=== PATIENT | male | born 1955 | race Caucasian/White ===

== ENCOUNTER 2017-12-12 23:06 | Emergency (ER) | payer OTHER ==
[2017-12-12] MEDS: PHENobarbital INJ 65 MG/ML VIAL (J2560) IV (23:36)
[2017-12-12] MEDS: MULTIVITAMIN -ADULT INJECTION 10 ML, THIAMINE INJection 100 MG, FOLIC ACID 1 MG in NS 1... IV (23:45)
[2017-12-12 23:53] LABS: BEDSIDE GLUCOSE 141 MG/DL (80-115)
[2017-12-13] LABS: BASO % 0.3 % (0.0-1.0); EOS # 0.1 10^3/uL (0.0-0.50); EOS % 1.8 % (0.0-3.0); HEMATOCRIT 43.5 % (42.0-52.0); HEMOGLOBIN 14.5 g/dl (13.5-17.5); IMMATURE GRANULOCYTE % 0.4 % (0-3.0); LYMPH # 1.4 10^3/uL (1.5-4.5); LYMPH % 18.4 % (24.0-44.0); MEAN CORPUSCULAR HEMOGLOBIN 33.6 pg (27.0-33.0); MEAN CORPUSCULAR HGB CONC 33.3 g/dl (32.0-36.5); MEAN CORPUSCULAR VOLUME 100.7 fl (80.0-96.0); MONO # 0.4 10^3/uL (0.0-0.8); MONO % 5.2 % (0.0-5.0); NEUTROPHILS # 5.7 10^3/uL (1.8-7.7); NEUTROPHILS % 73.9 % (36.0-66.0); PLATELET COUNT, AUTOMATED 215 10^3/uL (150-450); RED BLOOD COUNT 4.32 10^6/uL (4.30-6.10); RED CELL DISTRIBUTION WIDTH 13.1 % (11.5-14.5); WHITE BLOOD COUNT 7.7 10^3/uL (4.0-10.0)
[2017-12-13 01:11] LABS: AMMONIA 17 uMOL/L (<32)
[2017-12-13 01:30] LABS: ALBUMIN 3.9 GM/DL (3.2-5.2); ALBUMIN/GLOBULIN RATIO 1.18 (1.00-1.93); ALKALINE PHOSPHATASE 69 U/L (45-117); ALT/SGPT 60 U/L (12-78); ANION GAP 13 MEQ/L (8-16); AST/SGOT 41 U/L (7-37); BILIRUBIN,DIRECT 0.1 MG/DL (0.0-0.2); BILIRUBIN,TOTAL 0.4 MG/DL (0.2-1.0); BLOOD UREA NITROGEN 13 MG/DL (7-18); CALCIUM LEVEL 8.6 MG/DL (8.8-10.2); CARBON DIOXIDE LEVEL 24 MEQ/L (21-32); CHLORIDE LEVEL 107 MEQ/L (98-107); CREATININE FOR GFR 0.82 MG/DL (0.70-1.30); ETHYL ALCOHOL (ETHANOL) 0.172 % (0.000-0.010); GLOMERULAR FILTRATION RATE > 60.0 (>49); GLUCOSE, FASTING 126 MG/DL (70-100); LITHIUM LEVEL < 0.20 MEQ/L (0.60-1.20); POTASSIUM SERUM 4.4 MEQ/L (3.5-5.1); SODIUM LEVEL 144 MEQ/L (136-145); TOTAL PROTEIN 7.2 GM/DL (6.4-8.2); VALPROIC ACID (DEPAKOTE) 13.8 UG/ML (50.0-100.0)
== END 2017-12-13 02:54 | disposition home or self-care (01) ==
LOC: M ED 23:06
DX: F10.239 Alcohol dependence with withdrawal, unspecified (principal); E11.9 Type 2 diabetes mellitus without complications; I10 Essential (primary) hypertension; I25.10 Atherosclerotic heart disease of native coronary artery without angina pectoris; F31.9 Bipolar disorder, unspecified; Z95.5 Presence of coronary angioplasty implant and graft; Z79.899 Other long term (current) drug therapy; Z79.82 Long term (current) use of aspirin; Z79.84 Long term (current) use of oral hypoglycemic drugs; Z87.891 Personal history of nicotine dependence
CPT/HCPCS: J2560

== ENCOUNTER 2020-05-10 18:19 | Inpatient (IN) | payer OTHER ==
[~2020-05-10] VITALS: Ht 170.2 cm; Wt 62.0 kg
[~2020-05-10 18:19] MED LIST: ASPI325T; ASPI81TA45 OR; ATOR40TA75 PO; BABY81CH; BUPR100T12 OR; BUPR1TAB53 PO; CLAR10CA3 PO; COLA100C2; COLA100C2 PO; COLA100C5 PO; CYAN1000VL IM; CYANPOW SC; DEPA1TAB3 PO; DEPA500T PO; DETEMIR INSULIN SC; ECOT81TA5 PO; FOLI1TAB; FOLI800C PO; FOLI800T; GEMF600T PO; JARD1TAB3 PO; LAMI1TAB7 PO; LASI20TA; LEVE1INJ5 SC; LEVI20TA; LISI40TA; LISI5TAB; LITH300T2; LOPR50TA; METF-415 PO; MULT1TAB7 PO; NICO21DI4; NOVO1INJ4; NOVO1INJ4 SC; PLAV75TA2; PLAV75TA2 OR; PRAV1TAB39 PO; PRAV80TA OR; SILD100T PO; THERGRAN PO; TYLENOL #3 OR; VITA250T4 PO; VITA500T PO; ZEST1TAB PO; ZEST20TA4 PO; [UNRECOGNIZED DRUG - OTHER] SC
--- NOTE | 2020-05-10 18:44 | REPVR ---
PROCEDURE INFORMATION: Exam: CT Head Without Contrast Exam date and time: 05/10/2020 6:34 PM Age: 64 years old Clinical indication: Numbness / parasthesia and speech disturbance; Slurred speech; Additional info: CVA - nursing interventions must not delay CT TECHNIQUE: Imaging protocol: Computed tomography of the head without contrast. Radiation optimization: All CT scans at this facility use at least one of these dose optimization techniques: automated exposure control; mA and/or kV adjustment per patient size (includes targeted exams where dose is matched to clinical indication); or iterative reconstruction. Other technique: STROKE PROTOCOL was implemented. COMPARISON: No relevant prior studies available. FINDINGS: Brain: There is no acute cortical infarction, intracranial hemorrhage or mass. Cerebral ventricles: The ventricles appear enlarged, but not out of proportion to the degree of parenchymal volume loss. Bones/joints: Unremarkable. No acute fracture. Paranasal sinuses: Visualized sinuses are unremarkable. No fluid levels. Mastoid air cells: Visualized mastoid air cells are well aerated. Vasculature: Atherosclerosis. Soft tissues: Unremarkable. IMPRESSION: No acute cerebral infarction or intracranial hemorrhage. ASSESSMENT: ASPECTS (Pamela Stroke Program Early CT Score) is 10. Electronically signed by: Radha Aguilar On 05/10/2020 18:44:08 PM
[2020-05-10 18:45] LABS: BASO % 0.6 % (0.0-1.0); EOS # 0.2 10^3/uL (0.0-0.5); EOS % 3.3 % (0.0-3.0); HEMATOCRIT 45.6 % (42.0-52.0); HEMOGLOBIN 14.7 g/dl (13.5-17.5); LYMPH # 1.3 10^3/uL (1.5-5.0); LYMPH % 19.9 % (24.0-44.0); MEAN CORPUSCULAR HEMOGLOBIN 31.5 pg (27.0-33.0); MEAN CORPUSCULAR HGB CONC 32.2 g/dl (32.0-36.5); MEAN CORPUSCULAR VOLUME 97.6 fl (80.0-96.0); MONO # 0.6 10^3/uL (0.0-0.8); MONO % 9.2 % (0.0-5.0); NEUTROPHILS # 4.2 10^3/uL (1.5-8.5); NEUTROPHILS % 66.7 % (36.0-66.0); PLATELET COUNT, AUTOMATED 252 10^3/uL (150-450); RED BLOOD COUNT 4.67 10^6/uL (4.30-6.10); WHITE BLOOD COUNT 6.3 10^3/uL (4.0-10.0)
[2020-05-10 19:17] LABS: INR 0.85; PARTIAL THROMBOPLASTIN TIME 26.7 SECONDS (24.2-38.5); PROTHROMBIN TIME 11.8 SECONDS (12.5-14.3)
[2020-05-10 19:29] LABS: BLOOD UREA NITROGEN 14 MG/DL (7-18); CALCIUM LEVEL 8.7 MG/DL (8.8-10.2); CARBON DIOXIDE LEVEL 26 MEQ/L (21-32); CHLORIDE LEVEL 98 MEQ/L (98-107); CPK CREATINE PHOSPHOKINASE 141 U/L (39-308); CREATININE FOR GFR 1.05 MG/DL (0.70-1.30); GLOMERULAR FILTRATION RATE > 60.0 (>49); GLUCOSE, FASTING 686 MG/DL (70-100); MB/CK RELATIVE INDEX 2.13 (< OR =4); POTASSIUM SERUM 4.6 MEQ/L (3.5-5.1); SODIUM LEVEL 132 MEQ/L (136-145); TROPONIN I < 0.02 NG/ML (< 0.10)
--- NOTE | 2020-05-10 19:37 | REPVR ---
PROCEDURE INFORMATION: Exam: XR Chest, 1 View Exam date and time: 05/10/2020 6:30 PM Age: 64 years old Clinical indication: Other: CVA TECHNIQUE: Imaging protocol: XR of the chest Views: 1 view. COMPARISON: No relevant prior studies available. FINDINGS: Tubes, catheters and devices: Cardiac leads are in place. Lungs: There appears to be subsegmental atelectasis at the left lung base. Pleural space: No pleural effusions. Heart/Mediastinum: No cardiomegaly. Atherosclerotic calcification. Bones/joints: Unremarkable. IMPRESSION: Lung volumes are relatively low and there appears to be subsegmental atelectasis at left lung base. Early pneumonia is also within the differential. Electronically signed by: Radha Aguilar On 05/10/2020 19:37:03 PM
[2020-05-10] MEDS ORDERED: HumaLOG INSULIN (NovoLOG) PER UNIT SC STA (19:43)
[2020-05-10] MEDS ORDERED: NS 1,000 ML IV ONE (19:45)
[2020-05-10 19:49] LABS: ALBUMIN 3.6 GM/DL (3.2-5.2); ALT/SGPT 40 U/L (12-78); BILIRUBIN,DIRECT < 0.1 MG/DL (0.0-0.2); BILIRUBIN,TOTAL 0.3 MG/DL (0.2-1.0); TOTAL PROTEIN 7.1 GM/DL (6.4-8.2)
[2020-05-10 19:51] LABS: HEMOGLOBIN A1c 10.3 %
[2020-05-10] MEDS ORDERED: ASPIRIN 325 MG TAB PO ONE (20:00)
[2020-05-10] MEDS ORDERED: INSULANT SC (20:13)
[2020-05-10] MEDS ORDERED: LISI-538 PO (20:13)
[2020-05-10] MEDS ORDERED: ATOR80TA59 PO (20:13)
[2020-05-10] MEDS ORDERED: SERT-138 PO (20:13)
[2020-05-10] MEDS ORDERED: ASCO500T PO (20:13)
[2020-05-10] MEDS ORDERED: METF10004 PO (20:13)
[2020-05-10] MEDS ORDERED: HYDR12CA PO (20:13)
[2020-05-10] MEDS ORDERED: LISI40TA PO (20:33)
[2020-05-10] MEDS ORDERED: CYAN100050 PO (20:35)
[2020-05-10] MEDS ORDERED: VITATAB73 PO (20:35)
[2020-05-10] MEDS ORDERED: ULTR5TAB PO (20:35)
--- NOTE | 2020-05-10 20:59 | HPEPDOC ---
[facility] Medical History & Physical Date of Admission May 10, 2020 Date of Service: May 10, 2020 Attending Physician: PRECIOUS SIMON MD History and Physical CHIEF COMPLAINT: Left-sided numbness HISTORY OF PRESENT ILLNESS: is a pleasant 64yo male with notable PMHx of previous CVA (2010), poorly controlled IDDMII, HTN, DLD, CAD s/p stents, and Bipolar depression, who presented to the [facility] ED on 05/10/2020 with the chief complaint of left-sided weakness. Three days ago, he began to experience left arm and hand numbness that continued on an intermittent basis and subsequently spread today (05/10) to involve the left lower extremity with accompanying difficulty speaking, left facial droop, and ambulatory instability. 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 He claims to have fallen onto a carpeted floor earlier today, making initial contact with his LUE and the left-side of his head, but his , who drove him to the ED and has been with him all day, denies that he fell. In the ED, a CT head without contrast showed no acute cerebral infarct or intracranial hemorrhage. He had significant hyperglycemia (sGlu 686) with an A1c of 10.3%, was hypertensive, and on exam exhibited some slowed garbled speech with left upper extremity pronator drift. The ED provider spoke with the on-call neurologist, who recommended switching his daily 81 mg aspirin 325 mg aspirin and ordering a follow-up MRI to rule out possible CVA. Of note, he is a former smoker, having quit 5 years ago after smoking 12 packs of cigarettes per day for 20 years. He was subsequently admitted under the care of the hospitalist service primarily for continued neurologic monitoring and workup for possible CVA along with i mproved glycemic control. Patient confirmed he is a full code. His Maribell is his HCP. His PCP is a Dr. Rubio at the [facility]. PAST MEDICAL HISTORY: CVA, 2010 Poorly controlled IDDMII; takes 18u long-acting qHS HTN CAD s/p stents DLD Bipolar depression with PTSD, currently on depakote PAST SURGICAL HISTORY: s/p cardiac stents Right inguinal hernia repair. Appendectomy. Right lower extremity fracture with subsequent plate hardware SOCIAL HISTORY: , lives and [id number] in [place], [place]. 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 Has 1 son and 1 daughter. Former smoker; quit smoking 5 years ago after smoking 12 packs per day of cigarettes for 20 years Former drinker, not having had any alcohol in "months." He has a previous heavy use for 5 years prior to stopping, averaging 1 pint of alcohol a day. Denies current or former illegal drug use. FAMILY HISTORY: Father: , type 2 diabetes and lung cancer Mother: , type 2 diabetes and lung cancer Two brothers: both - - one overdosed on drugs, the other had biliary tree cancer ALLERGIES: Please see below. REVIEW OF SYSTEMS: CONSTITUTIONAL: Denies weight loss, fevers, chills, or night sweats EYES: Denies visual changes, double vision, blurry vision, eye pain ENT: Denies runny nose, epistaxis, sinus pain, tinnitus, sore throat, dysphagia, or odynophagia CARDIOVASCULAR: Denies chest pain, chest pressure, or palpitations RESPIRATORY: Denies shortness of breath, cough, pleuritic chest pain GASTROINTESTINAL: Denies abdominal pain, nausea, vomiting, or blood in stool GENITOURINARY: Denies hematuria or dysuria NEUROLOGY: Reports left upper and lower extremity numbness with decreased left rim fire priming 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 PHYSICAL EXAMINATION: VITAL SIGNS: Temperature 98.3, pulse, 94, respiratory rate 18, blood pressure 151/82, pulse oximetry, 99 % on room air. GENERAL: Pleasant, elderly male lying in bed. Has slower, somewhat thicker speech. No acute distress. Alert and oriented 3. HEENT: Normocephalic, atraumatic. Noninjected, anicteric sclera. There appears to be some mild drooping of the left eyelid. No conjunctival pallor. No pharyngeal erythema or exudate. NECK: Supple. Trachea midline. No lymphadenopathy. RESPIRATORY: Decreased tidal volume with some rhonchorous breath sounds in bilateral bases posteriorly. Symmetric chest. For the remainder. CARDIOVASCULAR: Distant heart sounds and borderline tachycardic rate. Regular rhythm. Normal S1, S2. Difficult to accurately assess for murmurs or rubs due to distant heart sounds. ABDOMEN: Soft, nontender, nondistended. No guarding or rigidity. Positive bowel sounds present. EXTREMITIES: Bilateral lower extremities free of edema. No clubbing, cyanosis. 2+ radial pulses bilaterally NEUROLOGICAL: Some mild to moderate dysarthria and slowed speech but able to eventually get accurate words out. Poor short-term recall. Sensation light touch intact of upper and lower extremities bilaterally. There is some mild pronator drift. The left upper extremity. [id number] testing for ataxia is delayed, but appropriately executed. Cranial nerves III through XII are grossly intact. PSYCHIATRIC: Mood and affect appear appropriate. Skin: There is some slight erythema of the left forehead with no signs of surrounding active bleeding or skin breakdown. LABORATORY DATA: Please see below. IMAGING: CT head without contrast, 05/10/20 FINDINGS: Brain: There is no acute cortical infarction, intracranial hemorrhage or mass. Cerebral ventricles: The ventricles appear enlarged, but not out of proportion to the degree of parenchymal volume loss. Bones/joints: Unremarkable. No acute fracture. Paranasal sinuses: Visualized sinuses are unremarkable. No fluid levels. Mastoid air cells: Visualized mastoid air cells are well aerated. Vasculature: Atherosclerosis. Soft tissues: Unremarkable. IMPRESSION: No acute cerebral infarction or intracranial hemorrhage. Chest x-ray, 05/10/20 FINDINGS: Tubes, catheters and devices: Cardiac leads are in place. Lungs: There appears to be subsegmental atelectasis at the left lung base. Pleural space: No pleural effusions. Heart/Mediastinum: No cardiomegaly. Atherosclerotic calcification. Bones/joints: Unremarkable. IMPRESSION: Lung volumes are relatively low and there appears to be subsegmental atelectasis at left lung base. Early pneumonia is also within the differential. MICROBIOLOGY: Please see below. ASSESSMENT & PLAN: This is a 64yo male w/ notable h/o CVA (2010), poorly controlled IDDMII, HTN, CAD s/p stents, smoking, and bipolar depression/PTSD, who presented to the ED on 05/10/2020 w/ CC of LUE numbness for 3 days that spread to involve LLE, left facial droop, difficulty speaking, and gait instability on 05/10. In the ED, CT head without contrast was negative for cranial hemorrhage or acute cerebral infarction. He was found to have left pronator drift and slowed, garbled speech; and was hypertensive with significant hyperglycemia (sGlu 686). He was subsequently admitted for further neurologic monitoring and workup for possible TIA versus CVA, as well as blood sugar control. 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 and dropping objects, and gait instability with possible fall -At time of ED px: Left arm pronator drift with slowed, garbled speech -NIH Stroke Scale Assessment (at time of admission): 2 points = "minor stroke" -CT head without contrast was negative for acute cerebral infarction or intracranial hemorrhage -MAGDA Score (to assess stroke vs stroke mimic): 1 point = possible stroke -ADCD2 Score (to assess for risk of CVA after TIA): 5 points = moderate risk of CVA after TIA -Due to the possibility of stroke in the setting of patient's presenting symptoms + history of stroke/extensive smoking history/uncontrolled diabetes/hypertension/dyslipidemia + possible stroke per MAGDA Score, f/u MRI Brain ordered -Bilateral carotid duplex ultrasound ordered to assess for carotid pathology -ECHO ordered to assess for possible cardiac structural pathology and may contribute to throwing a clot; last ECHO on file is from February 2011 that showed no obvious source for cardiac emboli -ASA increased to 325 mg -home 80 mg atorvastatin continued -Based on possible stroke per MAGDA Score and moderate risk of CVA following TIA per ABCD2 Score, combination of aspirin and Plavix is indicated for the duration of 21 days, to be followed by Plavix monotherapy for 90 days. *As patient seems to have these neurological symptoms despite being on 81 mg ASA, the addition of Plavix seems warranted. -Neuro checks every 4 hours -CLD (pt will begin by demonstrating capability with use of straw); FSBS q6h w/ SSI q6h and hypoglycemic protocol; home LA insulin dose cut in half to 9u qHS; home metformin held -Speech therapy consult, along with PT/OT evaluation, placed but, due to holiday, this likely won't be completed until 05/14 -Fall risk precautions & assisted ambulation only #Uncontrolled IDDMII -At px: sGlu 686; Hgb A1c 10.3% -Takes 18u long-acting qHS along with metformin at home -s/p two, 10 mg IV short-acting insulin in ED -CLD (pt will begin by demonstrating capability with use of straw) -FSBS q6h w/ SSI q6h and hypoglycemic protocol; home LA insulin dose cut in half to 9u qHS; home metformin held -diabetic counseling and dietary consult placed #Chronic HTN -Px hypertensive with SBP in 190s; decreased at time of admission to SBPs 150s -home lisinopril and hctz contd #DLD -home atorvastatin 80 mg continued #History of Bipolar depression and PTSD -follows with a psychiatrist, Dr. Barbour, at the [facility] in [place] -Per report, his 100 mg sertraline was abruptly discontinued by his provider on 05/04 (6 days ago). This is a significant dose of this medication to stop suddenly, and thus 50 mg sertraline dose ordered for 7 days to assist with taper -He is on Depakote at home, and this was continued #CAD s/p cardiac stents -home 81 mg ASA held in favor of starting 325 mg ASA dose per neurology recommendation #DVT prophylaxis: sc lovenox Disposition: pending results further imaging results and improved sugars Vital Signs Vital Signs Date Time Temp Pulse Resp B/P (MAP) Pulse Ox O2 Delivery O2 Flow Rate FiO2 05/10/20 18:38 05/10/20 18:36 98.3 94 18 99 Room Air Laboratory Data Labs 24H Laboratory Tests 2 05/10/20 18:35: Immature Granulocyte % (Auto) 0.3, Neutrophils (%) (Auto) 66.7H, Lymphocytes (%) (Auto) 19.9L, Monocytes (%) (Auto) 9.2H, Eosinophils (%) (Auto) 3.3H, Basophils (%) (Auto) 0.6, Neutrophils # (Auto) 4.2, Lymphocytes # (Auto) 1.3L, Monocytes # (Auto) 0.6, Eosinophils # (Auto) 0.2, Basophils # (Auto) 0.0, Nucleated Red Blood Cells % (auto) 0.0, Prothrombin Time 11.8, Prothromb Time International Ratio 0.85, Activated Partial Thromboplast Time 26.7, Anion Gap 8, Glomerular Filtration Rate > 60.0, Estimated Mean Plasma Glucose 249H, Hemoglobin A1c 10.3, Calcium Level 8.7L, Total Bilirubin 0.3, Direct Bilirubin < 0.1, Aspartate Amino Transf (AST/SGOT) 18, Alanine Aminotransferase (ALT/SGPT) 40, Alkaline Phosphatase 195H, Total Creatine Kinase 141, Creatine Kinase MB 3.0, Creatine Kinase MB Relative Index 2.13, Troponin I < 0.02, Total Protein 7.1, Albumin 3.6, Albumin/Globulin Ratio 1.0 05/10/20 19:41: Bedside Glucose (Misc Panel) 571*H 05/10/20 20:01: CBC/BMP Laboratory Tests 05/10/20 18:35 Home Medications Scheduled Ascorbic Acid (Ascorbic Acid) 500 Mg Tablet, 500 MG PO DAILY Aspirin (Ecotrin) 81 Mg Tablet.dr, 81 MG PO DAILY Atorvastatin Calcium (Atorvastatin Calcium) 80 Mg Tablet, 80 MG PO QPM Biotin (Biotin) 5,000 Mcg Tab.rapdis, 5 MG PO DAILY Clopidogrel Bisulfate (Clopidogrel) 75 Mg Tablet, 75 MG PO DAILY Cyanocobalamin (Vitamin B-12) (Vitamin B-12) 1,000 Mcg Tablet, 1,000 MCG PO DAILY Divalproex Sodium (Depakote) 500 Mg Tablet.dr, 500 MG PO QHS Docusate Sodium (Colace) 100 Mg Capsule, 100 MG PO BID Empagliflozin (Jardiance) 25 Mg Tab, 25 MG PO DAILY Folic Acid (Folic Acid) 800 Mcg Cap, 800 MCG PO DAILY Insulin Glargine (Lantus) 100 Unit/1 Ml Vial, 18 UNITS SC QPM Lisinopril (Lisinopril) 40 Mg Tablet, 20 MG PO QHS Loratadine (Claritin) 10 Mg Cap, 10 MG PO DAILY Metformin HCl (Metformin HCl) 1,000 Mg Tablet, 1,000 MG PO BID 2ND DOSE @ SUPPER Multivitamin with Minerals (Multiple Vitamin) 1 Each Tablet, 1 TAB PO DAILY Sertraline HCl (Sertraline HCl) 50 Mg Tablet, 50 MG PO DAILY Vitamin B Complex (Vitamin B Complex) 1 Each Tablet, 1 TAB PO DAILY Allergies Coded Allergies: No Known Allergies (Unverified , 07/21/19) A-FIB/CHADSVASC A-FIB History Current/History of A-Fib/PAF?: No Current PO Anticoag Therapy: No GME ATTESTATION GME ATTESTATION My faculty preceptor for this patient encounter was physically present during the encounter and was fully available. All aspects of the patient interview, examination, medical decision making process, and medical care plan development were reviewed and approved by the faculty preceptor. The faculty preceptor is aware and concurs with the plan as stated in the body of this note and will att est to such by his/her cosignature. ATTENDING NOTE TIME OF SERVICE 1151PM Mr Ham is a 64 yr old w a hx of DM, HTN, DLP and CVA who presented w c/o of relapsing and remitting L sided weakness w paresthesia associated slurred speech over the last week; at the time of my evaluation he reported that his symptoms had mostly resolved; he will be admitted for work up of TIA vs CVA. Plan: pending MRI brain, CTA head and neck, Echo and hypercoag work up will ask the day time team consider Neuro consult to discuss correction AC strategy (he is already on ASA at home) Rest per Dr.Schwarzs Jeff&YAZMIN FLOWER D.O. May 10, 2020 20:59 PRECIOUS SIMON MD May 11, 2020 01:42
[2020-05-10] MEDS ORDERED: lisinopriL 40 MG TAB PO SCH (21:00)
[2020-05-10 21:10] LABS: RSV AMPLIFICATION NEGATIVE (NEGATIVE)
[2020-05-10 21:31] LABS: OSMOLALITY SERUM 313 MOSM/KG (280-301)
[2020-05-10] MEDS ORDERED: HumaLOG INSULIN (NovoLOG) PER UNIT SC ONE ×2 (21:45→22:00)
[2020-05-10] MEDS ORDERED: ACETAMINOPHEN TAB 650MG DOSE (2X325MG) PO PRN (22:45)
[2020-05-10] MEDS ORDERED: MAALOX 30 ML SUSP *UDC PO PRN (22:45)
[2020-05-10] MEDS ORDERED: MOM 30ML SUSPENSION UDC PO PRN (22:45)
[2020-05-10 23:08] VITALS: BP 127/81
[2020-05-10] MEDS: DOCUSATE SODIUM 100MG CAPSULE PO SCH (23:35)
[2020-05-10] MEDS: DIVALPROEX 500 MG TAB PO SCH (23:36)
[2020-05-10] MEDS: lisinopriL 20 MG TAB PO SCH (23:36)
[2020-05-11 05:13] LABS: HEMATOCRIT 40.3 % (42.0-52.0); HEMOGLOBIN 12.9 g/dl (13.5-17.5); MEAN CORPUSCULAR HEMOGLOBIN 31.2 pg (27.0-33.0); MEAN CORPUSCULAR VOLUME 97.3 fl (80.0-96.0); PLATELET COUNT, AUTOMATED 208 10^3/uL (150-450); RED BLOOD COUNT 4.14 10^6/uL (4.30-6.10)
[2020-05-11 05:46] LABS: ALBUMIN 2.9 GM/DL (3.2-5.2); ALT/SGPT 29 U/L (12-78); BILIRUBIN,TOTAL 0.1 MG/DL (0.2-1.0); BLOOD UREA NITROGEN 10 MG/DL (7-18); CALCIUM LEVEL 8.4 MG/DL (8.8-10.2); CARBON DIOXIDE LEVEL 22 MEQ/L (21-32); CHLORIDE LEVEL 113 MEQ/L (98-107); CREATININE FOR GFR 0.74 MG/DL (0.70-1.30); GLOMERULAR FILTRATION RATE > 60.0 (>49); GLUCOSE, FASTING 155 MG/DL (70-100); MAGNESIUM LEVEL 2.2 MG/DL (1.8-2.4); SODIUM LEVEL 142 MEQ/L (136-145); TOTAL PROTEIN 5.8 GM/DL (6.4-8.2)
[2020-05-11 06:00] VITALS: BP 101/63
--- NOTE | 2020-05-11 07:43 | ECGEPIP ---
[facility] - ED Test Date: 2020-05-10 Pat Name: LIANNE ECHEVARRIA Department: Room: [place] [address] Gender: Male Emotionally Impaired Teacher: dorothy : 1955 Requested By: LUCIA Garcia Order Number: [id number] Reading MD: Gwen Smith Measurements Intervals [place] Rate: 99 P: 1 WA: 159 QRS: -34 QRSD: 101 T: 43 QT: 328 QTc: 422 Interpretive Statements SINUS RHYTHM MARKED LEFT AXIS DEVIATION PATTERN CONSISTENT WITH PULMONARY DISEASE baseline artifact may affect interpretation No prior Electronically Signed on 05-11-2020 7:42:58 EST by Gwen Smith
--- NOTE | 2020-05-11 08:00 | REP ---
INDICATION: r/o carotid artery pathology in 64yo m w/ poss TIA COMPARISON: 03/05/2011 TECHNIQUE: Domingo scale and color Doppler evaluation using linear high frequency transducer Findings: FINDINGS: Two-dimensional domingo scale and color images demonstrate moderate amounts of mixed atheromatous plaquing through the carotid arteries (left greater than right) with visible narrowing through the right carotid bulb and distal left common carotid artery at approximately 50%. Color Doppler interrogation demonstrates normal arterial wave patterns with mild spectral broadening. Normal flow direction is appreciated in the bilateral vertebral arteries. ICA peak systolic velocity: Right 64.4 cm/s; Left 107.1 cm/s ICA diastolic velocity: Right 22.3 cm/s; Left 21.2 cm/s ECA peak systolic velocity: Right 100.6 cm/s; Left 70.1 cm/s CCA peak systolic velocity: Right 63.8 cm/s; Left 85.3 cm/s ICA/CCA ratio: Right 1.01 cm/s; Left 1.26 cm/s IMPRESSION: 1. Mild to moderate amounts of mixed atheromatous plaquing noted with visible focal areas of narrowing at the right carotid bulb and distal left common carotid artery in the 50% range. <Electronically signed by David Lai > 05/11/20 [id number]
[2020-05-11] MEDS ORDERED: hydroCHLOROthiazide 12.5 MG CAPSULE PO SCH (09:00)
[2020-05-11] MEDS ORDERED: SERTRALINE 100 MG TAB PO SCH (09:00)
[2020-05-11] MEDS: DOCUSATE SODIUM 100MG CAPSULE PO SCH ×2 (09:38→20:11)
[2020-05-11] MEDS: SERTRALINE HCL 50 MG TAB PO SCH (09:39)
[2020-05-11] MEDS: LORATADINE 10 MG TAB PO SCH (09:40)
[2020-05-11] MEDS: ENOXAPARIN 40MG/0.4ML SYRINGE (J1650 PER 10MG) SC SCH (09:40)
[2020-05-11 14:00] VITALS: BP 117/78
[2020-05-11] MEDS: ATORVASTATIN 20 MG TAB PO SCH (18:06)
[2020-05-11] MEDS ORDERED: GLUCOSE 4GM CHEW TABLET PO PRN (19:45)
[2020-05-11] MEDS ORDERED: GLUCAGON INJ 1MG VIAL SC PRN (19:45)
[2020-05-11] MEDS ORDERED: DEXTROSE 50% 50 ML SYRINGE IV PRN (19:45)
[2020-05-11] MEDS: DIVALPROEX 500 MG TAB PO SCH (20:11)
[2020-05-11] MEDS: lisinopriL 20 MG TAB PO SCH (20:14)
[2020-05-11] MEDS: LEVEMIR (INSULIN DETEMIR) 1 UNITS/0.01ML SC SCH (20:30)
[2020-05-11] MEDS: HumaLOG INSULIN (NovoLOG) PER UNIT SC SCH (20:31)
[2020-05-11 22:00] VITALS: BP 124/80
[2020-05-12 06:00] VITALS: BP 129/81
[2020-05-12 07:25] LABS: BLOOD UREA NITROGEN 9 MG/DL (7-18); CALCIUM LEVEL 8.4 MG/DL (8.8-10.2); CARBON DIOXIDE LEVEL 26 MEQ/L (21-32); CHLORIDE LEVEL 109 MEQ/L (98-107); CREATININE FOR GFR 0.77 MG/DL (0.70-1.30); GLOMERULAR FILTRATION RATE > 60.0 (>49); GLUCOSE, FASTING 155 MG/DL (70-100); POTASSIUM SERUM 4.5 MEQ/L (3.5-5.1); SODIUM LEVEL 141 MEQ/L (136-145)
[2020-05-12] MEDS: DOCUSATE SODIUM 100MG CAPSULE PO SCH ×2 (07:59→20:15)
[2020-05-12] MEDS: SERTRALINE HCL 50 MG TAB PO SCH (07:59)
[2020-05-12] MEDS: LORATADINE 10 MG TAB PO SCH (07:59)
[2020-05-12] MEDS: ENOXAPARIN 40MG/0.4ML SYRINGE (J1650 PER 10MG) SC SCH (08:00)
[2020-05-12] MEDS: HumaLOG INSULIN (NovoLOG) PER UNIT SC SCH ×4 (08:00→20:16)
--- NOTE | 2020-05-12 08:21 | IPN ---
PROGRESS NOTE DATE: 05/11/2020 SUBJECTIVE: Jasper was admitted with suggested stroke. He had left-sided weakness. He has a number of cardiac risk factors including poorly controlled type 2 diabetes, hypertension, hyperlipidemia, previous stroke in 2010. He feels better. He is still numb on his left side, but he is walking in the varma and states he can move his arm better. No headache, chest pain, or shortness of breath. OBJECTIVE: VITAL SIGNS: Blood pressure 101/63, pulse rate 77, respiratory rate 17, O2 saturation 96%. GENERAL APPEARANCE: He is alert and conversant. He is walking in the hallway with physical therapy. HEENT: There is a little bit of left facial weakness. LUNGS: Clear. HEART: Regular rhythm. ABDOMEN: Soft and nontender with no peripheral edema. EXTREMITIES: Left upper extremity is mildly weak compared to the right. He has no Romberg present. LABORATORY DATA: CBC and CMP unremarkable. Blood sugar is down to 155. Hemoglobin A1c was 10.3 yesterday. ASSESSMENT/PLAN: 1. Stroke with left hemiparesis. He has an MRI pending. Suspect it will confirm the stroke. Continue with aspirin 325 mg daily and physical therapy. 2. Diabetes. He is on basal insulin with sliding scale. I agree with low dose of the basal insulin. I doubt he is compliant as an outpatient and we will need to avoid hypoglycemia in this period around the time of his stroke. 3. Hypertensive heart disease. I am stopping his hydrochlorothiazide. His blood pressure is a little low. Maintain adequate cerebral perfusion. Continue lisinopril 20 mg daily for now. 4. Hyperlipidemia. Continue atorvastatin 80 mg daily for secondary prevention. 5. History of depression. Continue sertraline 50 mg daily. Patient may be considered a candidate for rehab, which could be looked in to once we get the patient some PFS involvement, probably after the weekend.
--- NOTE | 2020-05-12 08:36 | IPNPDOC ---
Text Note Date of Service The patient was seen on 05/12/20. NOTE Subjective: Patient seen and examined at bedside. Doing well overnight. Denies any pain. Notes most of his neurological deficits have improved except for LUE weakness. Vital signs stable and on room air Objective: Constitutional: NAD. Awake and alert. AO x3 HEENT: EOMI. LIZZ Cardiovascular: HS 1+ 2 normal with no added sounds or murmurs Respiratory: Clear to auscultation bilaterally Abdomen: Soft and non-tender. BS + Neurological: CN 2-12 intact. LUE pronator drift and with 4/5 power. Power 5/5 in all other extremities Assessment/Plan: 64yo male with history of CVA (2010), poorly controlled IDDMII, HTN, CAD s/p stents, smoking, and bipolar depression/PTSD, who presented to the ED on 05/10/2020 w/ CC of LUE numbness for 3 days that spread to involve LLE, left facial droop, difficulty speaking, and gait instability on 05/10. In the ED, CT head without contrast was negative for cranial hemorrhage or acute cerebral infarction. He was found to have left pronator drift and slowed, garbled speech; and was hypertensive with significant hyperglycemia (sGlu 686). He was subsequently admitted for further neurologic monitoring and workup for possible TIA versus CVA, as well as blood sugar control. #Left-sided numbness likely secondary to stroke -NIH Stroke Scale Assessment (at time of admission): 2 points = "minor stroke" -CT head in ED was negative for acute cerebral infarction or intracranial hemorrhage -MRI Brain negative -Bilateral carotid duplex ultrasound showing < 50% stenosis -ECHO with bubble study ordered -ECG showing NSR -Patient loaded with ASA 325. C/W ASA 81 and Plavis 75 daily (for 21 days), then plavix monotherapy for 90 days after + Home dose atorvastatin 80 -Diet advanced as tolerated throughout admission currently on consistent carbohydrates -Fall risk precautions & assisted ambulation only -PT recommending home with services -CXR and Cervical X-ray ordered to check for signs of local nerve compression (eg. pancoast tumor although unlikely) -Neurology consulted given physical examination findings with negative MRI brain #Uncontrolled T2DM (currently controlled) -Hgb A1c 10.3%. Glucose 686 on admission -Home medication: Metformin 1g BID, jardiance 25 daily, lantus 18 qhs -Hospital rx: Detemir 9 units + ISS -diabetic counseling and dietary consult placed #HTN (currently controlled) - On admission, patient hypertensive with SBP to 190s - Home meds: HCTZ 12.5 daily and lisinopril 20 - C/w lisinopril 20 only in light of recent stroke to maintain adequate cerebral perfusion #DLD -home atorvastatin 80 mg continued #History of Bipolar depression and PTSD -follows with a psychiatrist, Dr. Barbour, at the [facility] [address] in [place] -as per previous note, 100 mg sertraline abruptly d/mavis by PCP on 05/04. Taper with sertraline 50 mg x 7 days (until 05/17) -c/w home medication depakote #CAD s/p cardiac stents -c/w home ASA 81 + Statin 80 DVT prophylaxis: Lovenox 40 daily Diet: Consistent Carbohydrate Disposition: Pending Neuro consult Wander Tripp MD Hospitalist Resident Megan SIMON I+Megan NIX I+O Laboratory Tests 05/12/20 06:44 Vital Signs Date Time Temp Pulse Resp B/P (MAP) Pulse Ox O2 Delivery O2 Flow Rate FiO2 05/12/20 06:00 97.2 81 18 129/81 (97) 98 Room Air I&O- Last 24 Hours up to 6 AM 05/12/20 06:00 Intake Total 3230 ml Output Total 3675 ml Balance -445 ml GME ATTESTATION GME ATTESTATION My faculty preceptor for this patient encounter was physically present during the encounter and was fully available. All aspects of the patient interview, examination, medical decision making process, and medical care plan development were reviewed and approved by the faculty preceptor. The faculty preceptor is aware and concurs with the plan as stated in the body of this note and will attest to such by his/her cosignature. ATTENDING NOTE I, A Yousef, have independently examined this patient and performed my own physical exam, as well as reviewed the documentation and edited where necessary. I have discussed in detail with the resident / student the findings and plan of treatment as documented by the resident / student and edited their note. I agree with their findings and treatment plan and have edited their documentation. I will continue to follow the patient during this hospital stay. Awaiting Neurology evaluation. Does not appear to be a CVA WANDER TRIPP M.D.,PGY-2 May 12, 2020 08:36 JAD FLYNN MD May 13, 2020 16:15
[2020-05-12 09:06] LABS: BASO % 0.7 % (0.0-1.0); EOS # 0.3 10^3/uL (0.0-0.5); HEMATOCRIT 43.5 % (42.0-52.0); HEMOGLOBIN 13.7 g/dl (13.5-17.5); LYMPH # 1.4 10^3/uL (1.5-5.0); LYMPH % 25.1 % (24.0-44.0); MEAN CORPUSCULAR HEMOGLOBIN 30.9 pg (27.0-33.0); MEAN CORPUSCULAR HGB CONC 31.5 g/dl (32.0-36.5); MONO # 0.7 10^3/uL (0.0-0.8); MONO % 11.9 % (0.0-5.0); NEUTROPHILS # 3.1 10^3/uL (1.5-8.5); NEUTROPHILS % 56.9 % (36.0-66.0); PLATELET COUNT, AUTOMATED 236 10^3/uL (150-450); RED BLOOD COUNT 4.44 10^6/uL (4.30-6.10); WHITE BLOOD COUNT 5.5 10^3/uL (4.0-10.0)
[2020-05-12] MEDS ORDERED: PROHANCE 279.3MG/ML 15ML VIAL As Ordered ONE (09:48)
[2020-05-12] MEDS: CLOPIDOGREL 75 MG TAB PO SCH (10:35)
[2020-05-12] MEDS: ASPIRIN 81 MG ENTERIC TAB PO SCH (10:35)
--- NOTE | 2020-05-12 10:36 | REPVR ---
PROCEDURE INFORMATION: Exam: MR Head Without and With Contrast Exam date and time: 05/12/2020 10:11 AM Age: 64 years old Clinical indication: Other: Possible CVA in PT w/ speech abnls TECHNIQUE: Imaging protocol: MR of the head without and with intravenous contrast. Contrast material: PROHANCE; Contrast volume: 12 ml; Contrast route: INTRAVENOUS (IV); COMPARISON: CT Head without contrast 05/10/2020 6:31 PM FINDINGS: Brain: There is mild patchy increased T2 signal intensity within the bilateral cerebral periventricular white matter, consistent with chronic microvascular ischemic changes. There are few small focal areas of chronic ischemia in bilateral frontal, parietal and periatrial white matter. There is no abnormal diffusion weighted signal intensity to suggest an acute ischemic event. There is mild diffuse cerebral atrophy present, consistent with this patient's age. Cerebral ventricles: The ventricular system demonstrates mild diffuse compensatory enlargement. Bones/joints: Unremarkable. Paranasal sinuses: Mild mucosal thickening is seen in the paranasal sinuses. Mastoid air cells: Normal as visualized. No mastoid effusion. Orbits: Unremarkable. Soft tissues: Unremarkable. IMPRESSION: 1. No acute infarction, masses or hemorrhage is seen. No acute intracranial abnormality is identified. 2. Diffuse age-related cerebral atrophy and mild chronic microvascular white matter ischemic changes, without evidence of an acute intracranial abnormality. 3. No abnormal contrast enhancement is seen. 4. There has been no adverse interval change since the previous study. Electronically signed by: Yvon Rojas On 05/12/2020 10:36:30 AM
[2020-05-12 14:00] VITALS: BP 105/65
[2020-05-12] MEDS: ATORVASTATIN 20 MG TAB PO SCH (17:29)
[2020-05-12] MEDS: DIVALPROEX 500 MG TAB PO SCH (20:15)
[2020-05-12] MEDS: LEVEMIR (INSULIN DETEMIR) 1 UNITS/0.01ML SC SCH (20:16)
[2020-05-12] MEDS: lisinopriL 20 MG TAB PO SCH (20:16)
--- NOTE | 2020-05-12 20:29 | REPVR ---
PROCEDURE INFORMATION: Exam: XR Chest, 2 Views Exam date and time: 05/12/2020 6:59 PM Age: 64 years old Clinical indication: Abnormal findings; Other: Questioning pancoast tumor; Additional info: Check for pancoast tumor TECHNIQUE: Imaging protocol: XR of the chest Views: 2 views. COMPARISON: CR PORTABLE CHEST X-RAY 05/10/2020 6:48 PM FINDINGS: Lungs: Atelectasis/scarring left lung base. Calcified granuloma left upper lung zone. Remaining lungs otherwise clear. Pleural space: Unremarkable. No pleural effusion. No pneumothorax. Heart/Mediastinum: Unremarkable. No cardiomegaly. Bones/joints: Unremarkable. IMPRESSION: No acute findings. Electronically signed by: John Perez On 05/12/2020 20:29:28 PM
--- NOTE | 2020-05-12 20:31 | REPVR ---
PROCEDURE INFORMATION: Exam: XR Cervical Spine, 6 or More Views Exam date and time: 05/12/2020 6:59 PM Age: 64 years old Clinical indication: Abnormal findings; Abnormal xray or scan of neck and cervical spine; Additional info: Check for pancoast tumor TECHNIQUE: Imaging protocol: XR of the cervical spine, 6 or more views. COMPARISON: No relevant prior studies available. FINDINGS: Bones/joints: Degenerative changes in the lower cervical spine with intervertebral osteophytes and mild disc space narrowing at C5-C6 and C6-C7. Foraminal narrowing on the right at C3-C4 through C5-C6. Soft tissues: Unremarkable. Lungs: Calcified granuloma left upper lobe. No significant pulmonary parenchymal mass demonstrated. IMPRESSION: 1. No acute findings. 2. Degenerative changes. Electronically signed by: John Perez On 05/12/2020 20:31:50 PM
[2020-05-12 22:00] VITALS: BP 107/65
[2020-05-13 06:00] VITALS: BP 119/72
[2020-05-13 06:31] LABS: HEMOGLOBIN 13.6 g/dl (13.5-17.5); MEAN CORPUSCULAR HEMOGLOBIN 30.9 pg (27.0-33.0); MEAN CORPUSCULAR HGB CONC 31.6 g/dl (32.0-36.5); MEAN CORPUSCULAR VOLUME 97.7 fl (80.0-96.0); PLATELET COUNT, AUTOMATED 224 10^3/uL (150-450); WHITE BLOOD COUNT 5.7 10^3/uL (4.0-10.0)
[2020-05-13 06:46] LABS: BLOOD UREA NITROGEN 13 MG/DL (7-18); CALCIUM LEVEL 8.5 MG/DL (8.8-10.2); CARBON DIOXIDE LEVEL 26 MEQ/L (21-32); CHLORIDE LEVEL 110 MEQ/L (98-107); CREATININE FOR GFR 0.74 MG/DL (0.70-1.30); GLOMERULAR FILTRATION RATE > 60.0 (>49); GLUCOSE, FASTING 174 MG/DL (70-100); POTASSIUM SERUM 4.5 MEQ/L (3.5-5.1); SODIUM LEVEL 143 MEQ/L (136-145)
--- NOTE | 2020-05-13 07:48 | IPNPDOC ---
Text Note Date of Service The patient was seen on 05/13/20. NOTE Subjective: Patient seen and examined at bedside. Doing well overnight. Denies any pain. Continues to have LUE 4/5 weakness and pronator drift. Awaiting neurology consult Objective: Constitutional: NAD. Awake and alert. AO x3 HEENT: EOMI. LIZZ Cardiovascular: HS 1+ 2 normal with no added sounds or murmurs Respiratory: Clear to auscultation bilaterally Abdomen: Soft and non-tender. BS + Neurological: CN 2-12 intact. LUE pronator drift and with 4/5 power. Power 5/5 in all other extremities. Sensation intact Assessment/Plan: 64yo male with history of CVA (2010), poorly controlled IDDMII, HTN, CAD s/p stents, smoking, and bipolar depression/PTSD, who presented to the ED on 05/10/2020 w/ CC of LUE numbness for 3 days that spread to involve LLE, left facial droop, difficulty speaking, and gait instability on 05/10. In the ED, CT head without contrast was negative for cranial hemorrhage or acute cerebral infarction. He was found to have left pronator drift and slowed, garbled speech; and was hypertensive with significant hyperglycemia (sGlu 686). He was subsequently admitted for further neurologic monitoring and workup for possible TIA versus CVA, as well as blood sugar control. #Left-sided numbness likely secondary to stroke -NIH Stroke Scale Assessment upon admission: 2 -CT head in ED was negative for acute cerebral infarction or intracranial hemorrhage -MRI Brain negative -Bilateral carotid duplex ultrasound showing < 50% stenosis -ECHO with bubble study ordered -ECG showing NSR -Patient loaded with ASA 325. C/W ASA 81 and Plavis 75 daily (for 21 days), then plavix monotherapy for 90 days after + Home dose atorvastatin 80 -Diet advanced as tolerated throughout admission currently on consistent carbohydrates -Fall risk precautions & assisted ambulation only -PT recommending home with services -CXR WNL. Cervical x-ray showing narrowing and stenosis in cervical spine with calcified nodule left upper lobe -Neurology consulted given physical examination findings with negative MRI brain #Uncontrolled T2DM (currently controlled) -Hgb A1c 10.3%. Glucose 686 on admission -Home medication: Metformin 1g BID, jardiance 25 daily, lantus 18 qhs -Hospital rx: Detemir 9 units + ISS -diabetic counseling and dietary consult placed #HTN (currently controlled) - On admission, patient hypertensive with SBP to 190s - Home meds: HCTZ 12.5 daily and lisinopril 20 - C/w lisinopril 20 only in light of recent stroke to maintain adequate cerebral perfusion #DLD -home atorvastatin 80 mg continued #History of Bipolar depression and PTSD -follows with a psychiatrist, Dr. Barbour, at the [facility] in [place] -as per previous note, 100 mg sertraline abruptly d/mavis by PCP on 05/04. Taper with sertraline 50 mg x 7 days (until 05/17) -c/w home medication depakote #CAD s/p cardiac stents -c/w home ASA 81 + Statin 80 DVT prophylaxis: Lovenox 40 daily Diet: Consistent Carbohydrate Disposition: Pending Neuro consult Wander Tripp MD Hospitalist Resident Megan SIMON, I+O Megan SIMON I+O Laboratory Tests 05/13/20 05:46 Vital Signs Date Time Temp Pulse Resp B/P (MAP) Pulse Ox O2 Delivery O2 Flow Rate FiO2 05/13/20 06:00 97.4 73 16 119/72 (88) 98 Room Air I&O- Last 24 Hours up to 6 AM 05/13/20 06:00 Intake Total 1600 ml Output Total 1475 ml Balance 125 ml GME ATTESTATION GME ATTESTATION My faculty preceptor for this patient encounter was physically present during the encounter and was fully available. All aspects of the patient interview, examination, medical decision making process, and medical care plan development were reviewed and approved by the faculty preceptor. The faculty preceptor is aware and concurs with the plan as stated in the body of this note and will attest to such by his/her cosignature. ATTENDING NOTE I, A Yousef, have independently examined this patient and performed my own physical exam, as well as reviewed the documentation and edited where necessary. I have discussed in detail with the resident / student the findings and plan of treatment as documented by the resident / student and edited their note. I agree with their findings and treatment plan and have edited their documentation. I will continue to follow the patient during this hospital stay. Evaluated by neurology. I recommend physical therapy reevaluation prior to discharge WANDER TRIPP M.D.,PGY-2 May 13, 2020 07:48 JAD FLYNN MD May 13, 2020 16:17
[2020-05-13] MEDS: HumaLOG INSULIN (NovoLOG) PER UNIT SC SCH ×4 (09:32→21:53)
[2020-05-13] MEDS: ENOXAPARIN 40MG/0.4ML SYRINGE (J1650 PER 10MG) SC SCH (09:32)
[2020-05-13] MEDS: LORATADINE 10 MG TAB PO SCH (09:33)
[2020-05-13] MEDS: DOCUSATE SODIUM 100MG CAPSULE PO SCH ×2 (09:33→21:51)
[2020-05-13] MEDS: SERTRALINE HCL 50 MG TAB PO SCH (09:33)
[2020-05-13] MEDS: CLOPIDOGREL 75 MG TAB PO SCH (09:33)
[2020-05-13] MEDS: ASPIRIN 81 MG ENTERIC TAB PO SCH (09:33)
[2020-05-13 14:00] VITALS: BP 114/72
--- NOTE | 2020-05-13 15:20 | CR ---
CONSULTATION DATE: 05/13/2020 REFERRING PHYSICIAN: Dr. Nick Harris REASON FOR CONSULTATION: Left arm weakness. HISTORY OF PRESENT ILLNESS: Jasper Ham is a 64-year-old man with a history of stroke in 2010, poorly controlled diabetes, coronary artery disease, bipolar disorder, history of alcoholism who presented to [facility] on May 10, 2020 which chief complaint of left-sided weakness. He provides different history today compared to what is mentioned in history of present illness. The patient states that he has had three strokes over the last 20 years. On Thursday, he felt numbness and weakness of his left arm, numbness spread up to his left shoulder. He also felt off-balance and numbness and weakness of his left leg and some slurred speech. He states that his symptoms lasted for 1/2 hour. He had similar symptoms on Thursday and symptoms lasted for one hour. He then stated that his symptoms returned on and lasted for one hour and then when asked a directed question, if he has any symptoms today, he stated that his left arm still feels and numb up to his left shoulder. In admission note, it is mentioned that the patient experienced left arm and hand numbness, weakness intermittently but subsequently spread to left leg with difficulty with speech, dizziness, facial droop and difficulty walking. He felt decreased left hand title examiner and claims to have fallen on a carpeted floor. His denied any falls. He denies any headache, neck pain, back pain, dysphagia, diplopia, falls or urinary incontinence. I was consulted by emergency department and I was told that his hemoglobin A1c was 10.3 and he was hypertensive and we increased his aspirin from 81 mg to 325 [address] daily. Initial CT scan of head was unremarkable. He had MRI scan of brain yesterday which was unremarkable except small vessel ischemic disease of brain and old lacunar strokes. Carotid ultrasound showed less than 50% bilateral carotid artery stenosis. CBC, metabolic profile were otherwise unremarkable. X-rays of cervical spine showed degenerative disc disease at multiple levels with foraminal stenosis on the right side between C3 through C5 levels. PAST MEDICAL HISTORY: 1. Uncontrolled diabetes with a hemoglobin A1c 10.3. 2. Stroke in 2010. 3. Hypertension. 4. Coronary artery disease. 5. Bipolar disorder. 6. History of alcoholism. 7. Coronary stents. 8. Right inguinal hernia repair. 9. Right leg fracture. 10. Appendectomy. SOCIAL HISTORY: He lives with his and [id number]. 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 He has two children. He quit smoking in 2014 and smoked 1-2 packs per day for 20 years. He states that he used to drink one pint of alcohol every day for several years. He quit drinking alcohol five months ago in 2019. He denies illicit drugs. FAMILY HISTORY: Father with a history of diabetes and lung cancer. Mother had the same. REVIEW OF SYSTEMS: All systems were reviewed and found to be noncontributory except as mentioned in history of present illness. HOME MEDICATIONS: 1. Aspirin 81 mg p.o. daily. 2. Lipitor 80 mg p.o. daily. 3. Biotin 5000 units p.o. daily. 4. Vitamin C 500 mg p.o. daily. 5. Vitamin B12 1000 mcg p.o. daily. 6. Depakote 500 mg p.o. q.h.s. 7. Jardiance 25 mg p.o. daily. 8. Folic acid 800 mcg p.o. daily. 9. Hydrochlorothiazide 12.5 mg p.o. daily. 10. Insulin Lantus 18 units daily. 11. Lisinopril 20 mg p.o. daily. 12. Claritin 10 mg p.o. daily. 13. Metformin 1000 mg p.o. b.i.d. 14. Sertraline 100 mg p.o. daily. 15. Vitamin B complex one table p.o. daily. ALLERGIES: None. PHYSICAL EXAMINATION: VITAL SIGNS: Temperature 97.4, pulse 73, respiratory rate 16, blood pressure 119/72, 98% saturation on room air. HEART: Regular rate and rhythm. LUNGS: Clear to auscultation. ABDOMEN: Soft, nontender, nondistended. EXTREMITIES: No pedal edema. MUSCULOSKELETAL: No abnormalities. SKIN: No rash. NEUROLOGICAL: No signs of meningeal irritation. The patient is awake, alert, oriented to place, person and time. Normal speech, comprehension and repetition. Extraocular muscles are intact. No facial weakness. Tongue and uvula are midline. He had left-sided wrist drop and strength in his left wrist and finger extensors is 4-/5. The rest of the strength in left upper extremity and left leg and right side are 5/5. He has decreased goal pinprick vibration and sensation in his feet. His gait is slightly wide-based and unsteady. ASSESSMENT: 1. Left-sided radial nerve palsy with left wrist drop. 2. Multifactorial gait difficulty likely due to diabetic and alcoholic peripheral neuropathy and the patient quit drinking excessive alcohol in 2019. 3. Less than 50% bilateral carotid artery stenosis and vessel ischemic disease of brain with a history of prior stroke. PLAN: 1. Aspirin 81 mg p.o. daily and Plavix 75 mg p.o. daily and continue Lipitor 80 mg p.o. daily. 2. Left forearm splint, physical and occupational therapy for left radial pulse. 3. EMG nerve conduction study of left arm on an outpatient basis. 4. Physical and occupational therapy. 5. Improving control of his diabetes will also help prevent worsening of peripheral neuropathy. 6. We will also do EMG nerve conduction study of legs on an outpatient basis.
[2020-05-13] MEDS: ATORVASTATIN 20 MG TAB PO SCH (17:48)
[2020-05-13 21:52] VITALS: BP 123/73
[2020-05-13] MEDS: LEVEMIR (INSULIN DETEMIR) 1 UNITS/0.01ML SC SCH (21:52)
[2020-05-13] MEDS: lisinopriL 20 MG TAB PO SCH (21:52)
[2020-05-13] MEDS: DIVALPROEX 500 MG TAB PO SCH (21:52)
[2020-05-13 22:00] VITALS: BP 121/73
[2020-05-14 06:00] VITALS: BP 124/72
[2020-05-14 06:03] LABS: HEMATOCRIT 41.3 % (42.0-52.0); HEMOGLOBIN 13.5 g/dl (13.5-17.5); MEAN CORPUSCULAR HGB CONC 32.7 g/dl (32.0-36.5); MEAN CORPUSCULAR VOLUME 97.9 fl (80.0-96.0); PLATELET COUNT, AUTOMATED 218 10^3/uL (150-450); RED BLOOD COUNT 4.22 10^6/uL (4.30-6.10); WHITE BLOOD COUNT 5.5 10^3/uL (4.0-10.0)
[2020-05-14 06:21] LABS: BLOOD UREA NITROGEN 12 MG/DL (7-18); CALCIUM LEVEL 8.5 MG/DL (8.8-10.2); CARBON DIOXIDE LEVEL 27 MEQ/L (21-32); CHLORIDE LEVEL 112 MEQ/L (98-107); CREATININE FOR GFR 0.74 MG/DL (0.70-1.30); GLOMERULAR FILTRATION RATE > 60.0 (>49); GLUCOSE, FASTING 162 MG/DL (70-100); POTASSIUM SERUM 4.2 MEQ/L (3.5-5.1); SODIUM LEVEL 142 MEQ/L (136-145)
[2020-05-14] MEDS: HumaLOG INSULIN (NovoLOG) PER UNIT SC SCH ×2 (10:11→12:27)
[2020-05-14] MEDS: SERTRALINE HCL 50 MG TAB PO SCH (10:35)
[2020-05-14] MEDS: LORATADINE 10 MG TAB PO SCH (10:35)
[2020-05-14] MEDS: ASPIRIN 81 MG ENTERIC TAB PO SCH (10:35)
[2020-05-14] MEDS: CLOPIDOGREL 75 MG TAB PO SCH (10:35)
[2020-05-14] MEDS: ENOXAPARIN 40MG/0.4ML SYRINGE (J1650 PER 10MG) SC SCH (10:36)
[2020-05-14] MEDS: DOCUSATE SODIUM 100MG CAPSULE PO SCH (10:36)
--- NOTE | 2020-05-14 11:29 | DS.PDOC ---
Discharge Summary General Date of Admission May 10, 2020 at 20:13 Date of Discharge 05/14/2020 Discharge Summary PROCEDURES PERFORMED DURING STAY: None ADMITTING DIAGNOSES: 1. TIA vs Stroke DISCHARGE DIAGNOSES: 1. Left radial nerve palsy 2. Chronic alcoholic neuropathy 3. Chronic diabetic neuropathy COMPLICATIONS/CHIEF COMPLAINT: Weakness. HISTORY OF PRESENT ILLNESS: Jasper is a pleasant 64yo male with notable PMHx of previous CVA (2010), poorly controlled IDDMII, HTN, DLD, CAD s/p stents, and Bipolar depression, who presented to the [facility] ED on 05/10/2020 with the chief complaint of left-sided weakness. Three days ago, he began to experience left arm and hand numbness that continued on an intermittent basis and subsequently spread today (05/10) to involve the left lower extremity with accompanying difficulty speaking, left facial droop, and ambulatory instability. He reports associated decreased left wide load escort strength and spontaneously dropping objects from this left hand (he is left hand dominant). He claims to have fallen onto a carpeted floor earlier today, making initial contact with his LUE and the left- side of his head, but his , who drove him to the ED and has been with him all day, denies that he fell. In the ED, a CT head without contrast showed no acute cerebral infarct or intracranial hemorrhage. He had significant hyperglycemia (sGlu 686) with an A1c of 10.3%, was hypertensive, and on exam exhibited some slowed garbled speech with left upper extremity pronator drift. The ED provider spoke with the on-call neurologist, who recommended switching his daily 81 mg aspirin 325 mg aspirin and ordering a follow-up MRI to rule out possible CVA. Of note, he is a former smoker, having quit 5 years ago after smoking 12 packs of cigarettes per day for 20 years. He was subsequently admitted under the care of the hospitalist service primarily for continued neurologic monitoring and workup for possible CVA along with improved glycemic control. Patient confirmed he is a full code. His Maribell is his HCP. His PCP is a Dr. Rubio at the [facility]. HOSPITAL COURSE: 64yo male with history of CVA (2010), poorly controlled IDDMII, HTN, CAD s/p stents, smoking, and bipolar depression/PTSD, who presented to the ED on 05/10/2020 w/ CC of LUE numbness for 3 days that spread to involve LLE, left facial droop, difficulty speaking, and gait instability on 05/10. In the ED, CT head without contrast was negative for cranial hemorrhage or acute cerebral infarction. He was found to have left pronator drift and slowed, garbled speech; and was hypertensive with significant hyperglycemia (sGlu 686). He was subsequently admitted for further neurologic monitoring and workup for possible TIA versus CVA, as well as blood sugar control. During hospital stay, MRI performed which was negative for stroke. Bilateral carotid US showing < 50% stenosis therefore no intervention required. As patients symptoms improved hospital stay, now only localizing to left arm numbness and weakness, cervical x-ray performed showing narrowing and stenosis as well as calcified nodule in the left upper lobe. CXR WNL. Neurology consulted, feels it is more of a left radial nerve palsy picture + Diabetic/alcoholic neuropathy. Recommending wrist splint/sling as well as ASA/PLAVIX for 3 weeks then ASA indefinitely afterwards. Continue with home atorvastatin 80. Patient aware to follow up in 2 weeks with neurology and PCP within 5 days. PT clear patient for discharge For this patients diabetes, A1C was measured at 10.3%. Unclear of compliance at home as patient with good sugar control on detemir 9 qhs and ISS in house. Will restart home regimen as hospital regiment similar to home regimen in terms of total insulin dose. Patient with HTN on admission SBP to 190s. Patients HCTZ held as patient SBP well controlled with lisinopril only. DISCHARGE MEDICATIONS: Please see below. ALLERGIES: Please see below. PHYSICAL EXAMINATION ON DISCHARGE: Constitutional: NAD. Awake and alert. AO x3 HEENT: EOMI. LIZZ Cardiovascular: HS 1+ 2 normal with no added sounds or murmurs Respiratory: Clear to auscultation bilaterally Abdomen: Soft and non-tender. BS + Neurological: CN 2-12 intact. LUE pronator drift and with 4/5 power with extension. Power 5/5 in all other extremities. Sensation intact LABORATORY DATA: Please see below. IMAGING: CT and MRI brain negative. CXR WNL. Cervical X-ray showing spinal stenosis and degenerative changes and left calcified nodule in left lung. ACTIVITY: as tolerated DIET: Consistent carbs DISCHARGE PLAN: Home with PCP follow up within 5 days of discharge and neurology within 2 weeks. DISPOSITION: Home DISCHARGE INSTRUCTIONS: 1. Please follow up with PCP within 5 days of discharge 2. Please follow up with neurology within 2 weeks 3. Continue using splint, rolling walker and sling 4. Take medications exactly as prescribed. You will need to take clopidogrel (plavix) for another 18 days and sertraline for another 3. ITEMS TO FOLLOWUP ON ON OUTPATIENT: 1. Follow up with neurology within 2 weeks DISCHARGE CONDITION: Stable TIME SPENT ON DISCHARGE: 35 min Vital Signs/I&Os Vital Signs Date Time Temp Pulse Resp B/P (MAP) Pulse Ox O2 Delivery O2 Flow Rate FiO2 05/14/20 06:00 98.1 66 18 124/72 (89) 95 Room Air I&O- Last 24 Hours up to 6 AM 05/14/20 06:00 Intake Total 1310 ml Output Total 802 ml Balance 508 ml Laboratory Data Labs 24H Laboratory Tests 2 05/13/20 11:46: Bedside Glucose (Misc Panel) 330H 05/13/20 17:01: Bedside Glucose (Misc Panel) 161H 05/13/20 20:57: Bedside Glucose (Misc Panel) 335H 05/14/20 05:31: Nucleated Red Blood Cells % (auto) 0.0, Anion Gap 3L, Glomerular Filtration Rate > 60.0, Calcium Level 8.5L 05/14/20 05:45: Bedside Glucose (Misc Panel) 158H CBC/BMP Laboratory Tests 05/14/20 05:31 FSBS Laboratory Tests Test 05/13/20 11:46 05/13/20 17:01 05/13/20 20:57 05/14/20 05:45 Range/Units Bedside Glucose (Misc Panel) 330 161 335 158 80-115 MG/DL Discharge Medications Scheduled Ascorbic Acid (Ascorbic Acid) 500 Mg Tablet, 500 MG PO DAILY, (Reported) Aspirin (Ecotrin) 81 Mg Tablet.dr, 81 MG PO DAILY Atorvastatin Calcium (Atorvastatin Calcium) 80 Mg Tablet, 80 MG PO QPM, (Reported) Biotin (Biotin) 5,000 Mcg Tab.rapdis, 5 MG PO DAILY, (Reported) Clopidogrel Bisulfate (Clopidogrel) 75 Mg Tablet, 75 MG PO DAILY Cyanocobalamin (Vitamin B-12) (Vitamin B-12) 1,000 Mcg Tablet, 1,000 MCG PO DAILY, (Reported) Divalproex Sodium (Depakote) 500 Mg Tablet.dr, 500 MG PO QHS, (Reported) Docusate Sodium (Colace) 100 Mg Capsule, 100 MG PO BID, (Reported) Empagliflozin (Jardiance) 25 Mg Tab, 25 MG PO DAILY, (Reported) Folic Acid (Folic Acid) 800 Mcg Cap, 800 MCG PO DAILY, (Reported) Insulin Glargine (Lantus) 100 Unit/1 Ml Vial, 18 UNITS SC QPM Lisinopril (Lisinopril) 40 Mg Tablet, 20 MG PO QHS, (Reported) Loratadine (Claritin) 10 Mg Cap, 10 MG PO DAILY, (Reported) Metformin HCl (Metformin HCl) 1,000 Mg Tablet, 1,000 MG PO BID, (Reported) 2ND DOSE @ SUPPER Multivitamin with Minerals (Multiple Vitamin) 1 Each Tablet, 1 TAB PO DAILY, (Reported) Sertraline HCl (Sertraline HCl) 50 Mg Tablet, 50 MG PO DAILY Vitamin B Complex (Vitamin B Complex) 1 Each Tablet, 1 TAB PO DAILY, (Reported) Allergies Coded Allergies: No Known Allergies (Unverified , 07/21/19) GME ATTESTATION GME ATTESTATION My faculty preceptor for this patient encounter was physically present during the encounter and was fully available. All aspects of the patient interview, examination, medical decision making process, and medical care plan development were reviewed and approved by the faculty preceptor. The faculty preceptor is aware and concurs with the plan as stated in the body of this note and will attest to such by his/her cosignature. ATTENDING NOTE IGato, have independently examined this patient and performed my own physical exam, as well as reviewed the documentation and edited where necessary. I have discussed in detail with the resident / student the findings and plan of treatment as documented by the resident / student and edited their note. I agree with their findings and treatment plan and have edited their documentation. I will continue to follow the patient during this hospital stay. WESLEY VALENTIN M.D.,PGY-2 May 14, 2020 11:29 JAD FLYNN MD May 15, 2020 19:27
[2020-05-14] MEDS ORDERED: INSULANT SC (11:53)
[2020-05-14] MEDS ORDERED: ECOT81TA5 PO (11:53)
[2020-05-14] MEDS ORDERED: CLOP75TA2 PO (11:53)
[2020-05-14] MEDS ORDERED: SERT50TA29 PO (11:53)
[2020-05-14 14:00] VITALS: BP 123/73
--- NOTE | 2020-05-16 11:56 | ECHO ---
DATE OF PROCEDURE: 05/12/2020 Age: 64 Gender: Male Height: 67 inches Weight: 137 pounds REFERRING PHYSICIAN: John Velez DO INDICATION: Acute stroke. MEASUREMENTS: 2D Measurements: Aortic root 3.2 cm Proximal ascending aorta 3.5 cm Left atrium 3.7 cm Intraventricular septum 1.02 cm Posterior wall 0.99 cm Left ventricle diastole 3.6 cm Left ventricle systole 2.0 cm Inferior vena cava 1.8 cm (more than 50% respiratory variation) Doppler Measurements: No aortic stenosis No aortic regurgitation Aortic valve velocity 109 cm/s LVOT velocity 95.5 cm/s LVOT VTI 17.8 cm No mitral regurgitation No mitral stenosis Mitral E velocity 71.1 cm/s Mitral A velocity 102 cm/s Mitral deceleration time 251 msec Trace tricuspid regurgitation No pulmonic regurgitation Pulmonary artery systolic pressure 40 mmHg MITRAL ANNULAR TISSUE DOPPLER E prime septal 6.5 cm/s, E prime lateral 9.9 cm/s DESCRIPTION: Rhythm was sinus, image quality was fair. No pericardial effusion. This was a 2D, M-mode, color flow Doppler, and pulsed wave Doppler examination including mitral annular tissue Doppler. CONCLUSIONS: * Normal left ventricle internal dimensions and wall thickness. Normal regional LV wall motion and wall thickening. Normal LV systolic function. LVEF 65% by visual estimate. Grade 1 LV diastolic dysfunction (impaired relaxation filling pattern). * Suggestive of moderate elevation of pulmonary artery systolic pressure (40 mmHg). * Mild mitral annular calcification. No mitral regurgitation. * Otherwise normal appearing echocardiogram Doppler findings. MTDD
== END 2020-05-14 15:28 | disposition home or self-care (01) | DRG 74 ==
LOC: M ED 18:19 → M ED INP 20:13 → M MSPAV 23:08
PROVIDERS: ADMIT Internal Medicine; ATTEND Family Medicine
DX: G56.32 Lesion of radial nerve, left upper limb (principal); E11.40 Type 2 diabetes mellitus with diabetic neuropathy, unspecified; G62.1 Alcoholic polyneuropathy; Z79.899 Other long term (current) drug therapy; Z86.73 Personal history of transient ischemic attack (TIA), and cerebral infarction without residual deficits; I25.10 Atherosclerotic heart disease of native coronary artery without angina pectoris; Z95.2 Presence of prosthetic heart valve; F31.9 Bipolar disorder, unspecified; Z79.82 Long term (current) use of aspirin; Z79.4 Long term (current) use of insulin; E11.65 Type 2 diabetes mellitus with hyperglycemia

== ENCOUNTER 2021-02-18 10:42 | Inpatient (IN) | payer OTHER ==
[~2021-02-18] VITALS: Ht 172.7 cm; Wt 64.5 kg
[~2021-02-18 10:42] MED LIST changes: +ASCO500T PO; +ATOR80TA59 PO; +CLOP75TA2 PO; +CYAN100050 PO; +HYDR12CA PO; +INSULANT SC; +LISI20TA33 PO; +LISI40TA4 PO; +METF10004 PO; +SERT-138 PO; +SERT50TA29 PO; +ULTR5TAB PO; +VITATAB73 PO
--- NOTE | 2021-02-18 11:53 | REP ---
INDICATION: CVA COMPARISON: 05/10/2020 TECHNIQUE: Axial noncontrast images from the skull base to the thoracic inlet with coronal reformations. This CT examination was performed using the following dose reduction techniques: Automated exposure control, adjustment of mA and/or kv according to the patient's size, and use of iterative reconstruction technique. FINDINGS: Atrophy with periventricular leukomalacia and microvascular ischemic changes are appreciated. The ventricles and sulci are symmetric. Domingo-white differentiation is maintained. There is no evidence for acute intracranial hemorrhage, mass/mass effect, pathology or infarction. No extra-axial fluid collection. Calvarium is intact. Paranasal sinuses and mastoid air cells are clear. IMPRESSION: Atrophy and microvascular ischemic changes. No acute intracranial hemorrhage, infarction, or mass/mass effect. <Electronically signed by David Lai > 02/18/21 114
[2021-02-18 11:54] LABS: BASO % 0.5 % (0.0-1.0); EOS # 0.3 10^3/uL (0.0-0.5); EOS % 2.9 % (0.0-3.0); HEMOGLOBIN 16.4 g/dl (13.5-17.5); LYMPH # 1.6 10^3/uL (1.5-5.0); LYMPH % 18.9 % (24.0-44.0); MEAN CORPUSCULAR HEMOGLOBIN 31.2 pg (27.0-33.0); MEAN CORPUSCULAR HGB CONC 32.2 g/dl (32.0-36.5); MEAN CORPUSCULAR VOLUME 97.1 fl (80.0-96.0); MONO # 0.6 10^3/uL (0.0-0.8); MONO % 6.8 % (2.0-8.0); NEUTROPHILS % 70.3 % (36.0-66.0); PLATELET COUNT, AUTOMATED 248 10^3/uL (150-450); RED BLOOD COUNT 5.25 10^6/uL (4.30-6.10); WHITE BLOOD COUNT 8.6 10^3/uL (4.0-10.0)
[2021-02-18 12:50] LABS: BLOOD UREA NITROGEN 23 MG/DL (7-18); CALCIUM LEVEL 9.8 MG/DL (8.8-10.2); CARBON DIOXIDE LEVEL 30 MEQ/L (21-32); CHLORIDE LEVEL 102 MEQ/L (98-107); CK-MB VALUE MASS 1.7 NG/ML (<3.6); CPK CREATINE PHOSPHOKINASE 70 U/L (39-308); CREATININE FOR GFR 1.08 MG/DL (0.70-1.30); GLOMERULAR FILTRATION RATE > 60.0 (>49); GLUCOSE, FASTING 274 MG/DL (70-100); MB/CK RELATIVE INDEX 2.43 (< OR =4); POTASSIUM SERUM 5.3 MEQ/L (3.5-5.1); SODIUM LEVEL 139 MEQ/L (136-145); TROPONIN I < 0.02 NG/ML (< 0.10)
[2021-02-18] MEDS ORDERED: LANTINJ4 SC (13:17)
[2021-02-18] MEDS ORDERED: EZET10TA21 PO (13:17)
[2021-02-18] MEDS ORDERED: ZOLO100T PO (13:17)
[2021-02-18] MEDS ORDERED: HYDR12.55 PO (13:17)
[2021-02-18] MEDS ORDERED: ECOT81TA5 PO (13:17)
[2021-02-18] MEDS ORDERED: TRUL0.5I SC (13:17)
[2021-02-18] MEDS ORDERED: HOME MED LIST COMPLETE! XX SCH (13:20)
[2021-02-18 13:31] LABS: RSV AMPLIFICATION NEGATIVE (NEGATIVE)
[2021-02-18] MEDS ORDERED: DOCUSATE SODIUM 100MG CAPSULE PO PRN (13:45)
[2021-02-18] MEDS ORDERED: GLUCAGON INJ 1MG VIAL SC PRN (14:20)
[2021-02-18] MEDS ORDERED: DEXTROSE 50% 50 ML SYRINGE IV PRN (14:20)
[2021-02-18] MEDS ORDERED: GLUCOSE 4GM CHEW TABLET PO PRN (14:20)
--- NOTE | 2021-02-18 14:20 | HPEPDOC ---
[facility] Medical History & Physical Date of Admission Feb 18, 2021 Date of Service: Feb 18, 2021 Attending Physician: HOLLIE THEODORE DO History and Physical CHIEF COMPLAINT: Left arm weakness and left-sided facial droop with slurred speech HISTORY OF PRESENT ILLNESS: Patient is a 65-year-old male who presented to the emergency department with a 4-day history of left-sided weakness in his arm, left-sided facial droop with slurred speech. Patient states that this came on all of a sudden 4 days ago. Patient states that he had something similar happen to him in April 2020 and they thought he was having a stroke however, MRI did not show any stroke. Patient says that it recovered but started up again suddenly 4 days ago. Patient denies any numbness. Patient states he has been able to walk. Patient decided to go to his primary care provider today who sent him to the emergency department for further evaluation. Patient does not have dentures and states that the slurred speech is new. Patient states that someone told him that his face looked different and that they are having a tough time understanding him which is why he decided to go to his primary care provider. [place]. In the emergency department, the patient's symptoms persist. 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 Patient denies any other symptoms at this time and is otherwise feeling well. PAST MEDICAL HISTORY: 1. Previous CVA in 2010. 2. Poorly controlled insulin-dependent type 2 diabetes mellitus. 3. Hypertension. 4. Coronary artery disease status post stenting 5. Dyslipidemia 6. Bipolar depression with PTSD PAST SURGICAL HISTORY: 1. Cardiac stents. 2. Right inguinal hernia repair. 3. Appendectomy. 4. Right lower extremity fracture with subsequent plate hardware SOCIAL HISTORY: Patient used to smoke cigarettes but quit 20 years ago. Patient quit drinking alcohol a little more than a year ago. Patient had been drinking heavily for 5 years prior to that. Patient denies illicit drug use. FAMILY HISTORY: Patient's father and mother are both and both had type 2 diabetes and lung cancer ALLERGIES: Please see below. REVIEW OF SYSTEMS: General: Patient denies fevers HEENT: Patient denies headaches Cardiovascular: Patient denies chest pain Respiratory: Patient denies shortness of breath, cough GI: Patient denies abdominal pain, nausea, vomiting, diarrhea : Patient denies increased frequency or pain with urination Extremities: Patient denies swelling or pain in extremities Neurological: Patient weakness as reported above Skin: Patient denies any new rashes or lesions. Hematologic: Patient denies any easy bruising. Lymphatic: Patient denies any lumps lumps or bumps in neck, axilla, or groin HOME MEDICATIONS: Please see below. PHYSICAL EXAMINATION: VITAL SIGNS: Temperature 98.2, pulse 79, respiratory rate 18, blood pressure 123/70, pulse oximetry 97% on room air. General: Alert and oriented male patient who was sitting on the stretcher when I walked in. Patient not appear to be in any acute distress. HEENT: Normocephalic, atraumatic, moist mucous membranes. Neck: No lymphadenopathy or thyromegaly Cardiac: Regular rate and rhythm, no murmurs, normal S1, normal S2 Pulm: Clear to auscultation bilaterally. No wheezes, rhonchi, rales Abd: Nondistended, nontender to palpation, normal bowel sounds Ext: No edema bilateral lower extremities Neuro: Patient had left-sided facial droop especially upon smiling. Spared the forehead. Patient was unable to puff out his cheeks. Patient did have 5/5 strength in right upper extremity but 3/5 strength in left upper extremity. Patient had 5/5 strength in the lower extremities bilaterally. Patient reported equal sensation to light touch. Finger-nose testing was normal in the right but was difficult to assess on the left due to chronic wrist weakness as well as arm weakness in general. Patient did have slurred speech and does not have dentures. Skin: Skin of the head, neck, upper and lower extremities was examined did not show any evidence of rash or wounds. LABORATORY DATA: See below. IMAGING: CT the head performed without contrast on 02/18/2021 was reported to show atrophy and microvascular ischemic change. No acute intracranial hemorrhage, infarction, or mass/mass-effect MICROBIOLOGY: Please see below. ASSESSMENT: Patient is a 65-year-old male presented the emergency department with 4-day history of left-sided arm weakness as well as left-sided facial droop as per the forehead with slurred speech who has had a history of CVA. . PLAN: 1. Left-sided arm weakness with facial droop. Based on the patient's symptoms, it is likely that the patient has a CVA. Patient will have an MRI and MRA of the brain as well as carotid ultrasound and echocardiogram. Patient placed on telemetry. Patient is already on aspirin and depending on the outcome of the MRI, patient may need to be on Plavix. Patient is on full dose atorvastatin. A1c and lipid panel have been ordered for tomorrow morning. Every 4 hours neurochecks have been ordered. ARU screen has been placed. PT OT will evaluate the patient as well. I did speak with neurology who stated to call them back based on the results of the MRI. Patient was unable to get TPA as the patient was 4 days since the symptoms have started which is outside the window. 2. History of CVA. Patient has a history of CVA. Continue patient's aspirin and atorvastatin. 3. Type 2 diabetes mellitus. Consistent carbohydrate diet with sliding scale i nsulin coverage. 4. Hypertension. Hold parameters have been placed on home blood pressure medications. 5. Hyperlipidemia. Continue patient's home atorvastatin. 6. Coronary artery disease. Continue aspirin. 7. Bipolar disorder. Continue home medications. 8. DVT prophylaxis: Heparin 9. CODE STATUS: Full code Disposition: Patient be admitted to the medical surgical floor. I expect the patient to be discharged after greater than or equal to 2 midnight stay. Late entry: MRI and MRA of the brain not show any signs of an acute CVA. Patient had something very similar to this if not the exact same thing happened in April 2020. I did speak with the patient's who stated that both times he was lifting something heavy when this happened. Patient was recommended to get EMGs done at that time. Patient will need to follow-up with neurology outpatient once he is able to be cleared from physical therapy standpoint. Patient will benefit from PT seeing them tomorrow but after discharge, patient will need to see outpatient neurology either in [place] or through the [place]. I did contact Dr. Hidalgo with the results of the MRIs and these were his recommendations. Vital Signs Vital Signs Date Time Temp Pulse Resp B/P (MAP) Pulse Ox O2 Delivery O2 Flow Rate FiO2 02/18/21 13:45 79 18 123/70 (87) 97 Room Air 02/18/21 10:43 98.2 Laboratory Data Labs 24H Laboratory Tests 2 02/18/21 11:37: Immature Granulocyte % (Auto) 0.6, Neutrophils (%) (Auto) 70.3H, Lymphocytes (%) (Auto) 18.9L, Monocytes (%) (Auto) 6.8, Eosinophils (%) (Auto) 2.9, Basophils (%) (Auto) 0.5, Neutrophils # (Auto) 6.0, Lymphocytes # (Auto) 1.6, Monocytes # (Auto) 0.6, Eosinophils # (Auto) 0.3, Basophils # (Auto) 0.0, Nucleated Red Blood Cells % (auto) 0.0, Anion Gap 7L, Glomerular Filtration Rate > 60.0, Calcium Level 9.8, Total Creatine Kinase 70, Creatine Kinase MB 1.7, Creatine Kinase MB Relative Index 2.43, Troponin I < 0.02, Coronavirus (COVID-19)(PCR) NEGATIVE, Influenza Type A (RT-PCR) NEGATIVE, Influenza Type B (RT-PCR) NEGATIVE, Respiratory Syncytial Virus (PCR) NEGATIVE CBC/BMP Laboratory Tests 02/18/21 11:37 Home Medications Scheduled Ascorbic Acid (Ascorbic Acid) 500 Mg Tablet, 500 MG PO DAILY Aspirin (Ecotrin) 81 Mg Tablet.dr, 81 MG PO DAILY Atorvastatin Calcium (Atorvastatin Calcium) 80 Mg Tablet, 80 MG PO QPM Biotin (Biotin) 5,000 Mcg Tab.rapdis, 5,000 MCG PO DAILY Cyanocobalamin (Vitamin B-12) (Vitamin B-12) 1,000 Mcg Tablet, 1,000 MCG PO BID Dulaglutide (Trulicity) 1.5 Mg/0.5 Ml Pen.injctr, 1.5 MG SC QWEEK SUNDAYS Empagliflozin (Jardiance) 25 Mg Tab, 25 MG PO DAILY Ezetimibe (Ezetimibe) 10 Mg Tablet, 10 MG PO QHS Hydrochlorothiazide (Hydrochlorothiazide) 12.5 Mg Tablet, 12.5 MG PO DAILY STATED THAT DR TOLD HIM TO STOP TAKING IT, THURSDAY WAS LAST DOSE. Insulin Glargine,Hum.rec.anlog (Lantus Solostar) 100 Unit/1 Ml Insuln.pen, 18 UNITS SC QHS Lisinopril (Lisinopril) 40 Mg Tablet, 20 MG PO QHS Metformin HCl (Metformin HCl) 1,000 Mg Tablet, 1,000 MG PO BID 2ND DOSE @ SUPPER Multivitamin with Minerals (Multiple Vitamin) 1 Each Tablet, 1 TAB PO DAILY Sertraline Hcl (Zoloft) 100 Mg Tablet, 100 MG PO DAILY Vitamin B Complex (Vitamin B Complex) 1 Each Tablet, 1 TAB PO DAILY Scheduled PRN Docusate Sodium (Colace) 100 Mg Capsule, 100 MG PO TID PRN for CONSTIPATION Allergies Coded Allergies: No Known Allergies (Unverified , 07/21/19) A-FIB/CHADSVASC A-FIB History Current/History of A-Fib/PAF?: No HOLLIE THEODORE DO Feb 18, 2021 14:20
--- NOTE | 2021-02-18 15:22 | REP ---
INDICATION: left sided arm weakness, possible CVA COMPARISON: 05/11/2020 TECHNIQUE: Domingo scale and color Doppler evaluation using linear high frequency transducer Findings: FINDINGS: Two-dimensional domingo scale and color images demonstrate extensive bilateral atheromatous partially calcified plaquing with visible areas of narrowing and stenosis involving the left carotid artery. Normal flow direction is appreciated in the bilateral vertebral arteries. ICA peak systolic velocity: Right 69.6 cm/s; Left 58.9 cm/s ICA diastolic velocity: Right 19.2 cm/s; Left 26.3 cm/s ECA peak systolic velocity: Right 92.2 cm/s; Left 103 cm/s CCA peak systolic velocity: Right 80.6 cm/s; Left 197 cm/s ICA/CCA ratio: Right 0.86 cm/s; Left 0.30 cm/s IMPRESSION: Narrowing through the bilateral internal carotid arteries in the less than 50% range. Stenosis of the left common carotid artery in the 50-69% range appears similar to prior examination. <Electronically signed by David Lai > 02/18/21 [id number]
[2021-02-18] MEDS: HumaLOG INSULIN (NovoLOG) PER UNIT SC SCH ×2 (16:29→17:38)
[2021-02-18 16:41] VITALS: BP 144/69
[2021-02-18] MEDS: hydroCHLOROthiazide 12.5 MG CAPSULE PO SCH (16:52)
--- NOTE | 2021-02-18 17:01 | REPVR ---
PROCEDURE INFORMATION: Exam: MR Head Without Contrast Exam date and time: 02/18/2021 3:51 PM Age: 65 years old Clinical indication: Weakness, extremity; Left; Additional info: Left sided arm weakness, R/O CVA TECHNIQUE: Imaging protocol: MR of the head without contrast. COMPARISON: CT Head without contrast 02/18/2021 11:40 AM FINDINGS: Brain: No restricted diffusion is seen to suggest acute infarction. There is no acute intracranial hemorrhage, cerebral edema, or midline shift. Age-related cerebral and cerebellar substance loss is present. Scattered increased T2 and FLAIR signal within the periventricular and subcortical white matter is present. This is nonspecific but likely related to chronic microangiopathic ischemic change. Additionally, there is nonspecific decreased T2 signal in the subcortical white matter of the right parietal lobe. This appears similar to the previous exam, but is easier to visualize due to slight differences in technique. The findings are nonspecific, but can be seen in the setting of chronic seizures. Cerebral ventricles: Mild ex vacuo dilation of the lateral ventricles is noted. Bones/joints: Unremarkable. Paranasal sinuses: Normal as visualized. No acute sinusitis. Mastoid air cells: Normal as visualized. No mastoid effusion. Orbital cavity: Unremarkable. Soft tissues: Unremarkable. IMPRESSION: 1. No acute intracranial abnormality. 2. Chronic findings as discussed above. Electronically signed by: Anish Barajas On 02/18/2021 17:01:16 PM
--- NOTE | 2021-02-18 17:05 | REPVR ---
PROCEDURE INFORMATION: Exam: MRA Head Without Contrast; Arteriography Exam date and time: 02/18/2021 3:51 PM Age: 65 years old Clinical indication: Weakness; Additional info: Left sided arm weakness, R/O CVA TECHNIQUE: Imaging protocol: Magnetic resonance angiography head without contrast. Exam focused on the arteries. COMPARISON: CT Head without contrast 02/18/2021 11:40 AM FINDINGS: ANTERIOR CIRCULATION: Right internal carotid artery: Intracranial segment is patent with no significant stenosis. No aneurysm. Right middle cerebral artery: No occlusion or significant stenosis. No aneurysm. Right anterior cerebral artery: No occlusion or significant stenosis. No aneurysm. Left internal carotid artery: Intracranial segment is patent with no significant stenosis. No aneurysm. Left middle cerebral artery: No occlusion or significant stenosis. No aneurysm. Left anterior cerebral artery: No occlusion or significant stenosis. No aneurysm. POSTERIOR CIRCULATION: Right vertebral artery: No occlusion or significant stenosis. No aneurysm. Left vertebral artery: No occlusion or significant stenosis. No aneurysm. Basilar artery: No occlusion or significant stenosis. No aneurysm. Right posterior cerebral artery: No occlusion or significant stenosis. No aneurysm. Left posterior cerebral artery: No occlusion or significant stenosis. No aneurysm. IMPRESSION: No stenosis or occlusion. Electronically signed by: Anish Barajas On 02/18/2021 17:05:03 PM
[2021-02-18] MEDS: HEPARIN SOD (PORCINE) 5000UNITS/ML 1ML VIAL/SYRINGE SC SCH (20:39)
[2021-02-18 20:40] VITALS: BP 137/69
[2021-02-18] MEDS ORDERED: LEVEMIR (INSULIN DETEMIR) 1 UNITS/0.01ML SC SCH (21:00)
[2021-02-18] MEDS ORDERED: EZETIMIBE 10MG TABLET (ZETIA) PO SCH (21:00)
[2021-02-18] MEDS ORDERED: HumaLOG INSULIN (NovoLOG) PER UNIT SC SCH (21:00)
[2021-02-18] MEDS ORDERED: ATORVASTATIN 20 MG TAB PO SCH (21:00)
[2021-02-18 21:51] VITALS: BP 111/68
[2021-02-19 06:00] VITALS: BP 106/60
[2021-02-19 06:25] LABS: HEMOGLOBIN 14.8 g/dl (13.5-17.5); MEAN CORPUSCULAR HEMOGLOBIN 30.8 pg (27.0-33.0); MEAN CORPUSCULAR HGB CONC 32.2 g/dl (32.0-36.5); MEAN CORPUSCULAR VOLUME 95.8 fl (80.0-96.0); PLATELET COUNT, AUTOMATED 257 10^3/uL (150-450); WHITE BLOOD COUNT 7.3 10^3/uL (4.0-10.0)
[2021-02-19 06:50] LABS: HEMOGLOBIN A1c 10.8 %
[2021-02-19 06:56] LABS: BLOOD UREA NITROGEN 21 MG/DL (7-18); CALCIUM LEVEL 9.2 MG/DL (8.8-10.2); CARBON DIOXIDE LEVEL 25 MEQ/L (21-32); CHLORIDE LEVEL 106 MEQ/L (98-107); CHOLESTEROL LEVEL 106 MG/DL (<200); CREATININE FOR GFR 0.86 MG/DL (0.70-1.30); GLOMERULAR FILTRATION RATE > 60.0 (>49); GLUCOSE, FASTING 78 MG/DL (70-100); HDL CHOLESTEROL 25 MG/DL (>40); LDL CHOLESTEROL 14 MG/DL (<100); MAGNESIUM LEVEL 2.3 MG/DL (1.8-2.4); NON-HDL-C 81 MG/DL; POTASSIUM SERUM 4.6 MEQ/L (3.5-5.1); SODIUM LEVEL 141 MEQ/L (136-145); TRIGLYCERIDES LEVEL 336 MG/DL (<150)
--- NOTE | 2021-02-19 07:17 | ECHO ---
ECHOCARDIOGRAM DATE OF PROCEDURE: 02/18/2021 Age: Gender: M Height: 173 cm Weight: 65 kg REFERRING PHYSICIAN: Dr. Juárez INDICATION: Cerebrovascular accident MEASUREMENTS: IVS: 1.3 LV: 3.0 LVPW: 1.2 LA: 3.5 Aorta: 3.5 Mitral E wave velocity is 65; A wave 93 E prime septal: 7.6 E prime lateral: 9.6 IVC: 1.2 FINDINGS: This study is of fair technical quality. Underlying sinus rhythm. Left ventricle has normal size and systolic function. Estimated LVEF approximately 70% to 75%. Mild left ventricular hypertrophy is noted. The right ventricle has a normal size and systolic function. Both atria appear grossly normal. Aortic valve is sclerotic but mobility of leaflets is preserved. There are mild degenerative abnormalities of mitral valve but again mobility of leaflet is intact. Tricuspid and pulmonic valve appear normal. No pericardial effusion is noted. Inferior vena cava is normal size. Aortic root and aortic arch appear normal. Doppler interrogation of aortic valve reveals no stenosis or insufficiency. There is trace mitral insufficiency. Tricuspid and pulmonary valve are also functionally competent. Mitral inflow pattern and tissue Doppler imaging of mitral annulus reveal grade 1 diastolic dysfunction. CONCLUSIONS: 1. Study is of fair technical quality, underlying sinus rhythm. 2. Normal left ventricle size with mild left ventricular hypertrophy (LVH), preserved left ventricular (LV) systolic function, estimated left ventricular ejection fraction (LVEF) 70% to 75%. Grade 1 diastolic dysfunction. 3. No significant valvular disease. 4. Likely normal central venous pressure. 5. Unable to estimate pulmonary artery pressure but no signs to suggest pulmonary hypertension.
[2021-02-19] MEDS: HumaLOG INSULIN (NovoLOG) PER UNIT SC SCH ×2 (07:30→12:16)
[2021-02-19] MEDS ORDERED: FLUBLOK(EGG FREE)(QUAD)INFLUENZA VACC 0.5ML SYRINGE 18YRS & OLDER IM ONE (09:00)
[2021-02-19] MEDS ORDERED: ASCORBIC ACID 500 MG TAB PO SCH (09:00)
[2021-02-19] MEDS ORDERED: SERTRALINE 100 MG TAB PO SCH (09:00)
[2021-02-19] MEDS: hydroCHLOROthiazide 12.5 MG CAPSULE PO SCH (09:00)
[2021-02-19] MEDS ORDERED: ASPIRIN 81MG ENTERIC TABLET PO SCH (09:00)
[2021-02-19] MEDS: HEPARIN SOD (PORCINE) 5000UNITS/ML 1ML VIAL/SYRINGE SC SCH (09:10)
--- NOTE | 2021-02-19 18:56 | DS.PDOC ---
Discharge Summary General Date of Admission Feb 18, 2021 at 13:41 Date of Discharge 02/19/21 Discharge Summary PROCEDURES PERFORMED DURING STAY: [None]. ADMITTING DIAGNOSES: Left-sided arm weakness with facial droop History of CVA Type 2 diabetes mellitus Hypertension Hyperlipidemia Coronary artery disease Bipolar disorder DISCHARGE DIAGNOSES: Left-sided arm weakness with facial droop History of CVA Type 2 diabetes mellitus Hypertension Hyperlipidemia Coronary artery disease Bipolar disorder COMPLICATIONS/CHIEF COMPLAINT: Cva, Left Arm Weakness. HISTORY OF PRESENT ILLNESS:Patient is a 65-year-old male who presented to the emergency department with a 4-day history of left-sided weakness in his arm, left-sided facial droop with slurred speech. Patient states that this came on all of a sudden 4 days ago. Patient states that he had something similar happen to him in April 2020 and they thought he was having a stroke however, MRI did not show any stroke. Patient says that it recovered but started up again suddenly 4 days ago. Patient denies any numbness. Patient states he has been able to walk. Patient decided to go to his primary care provider today who sent him to the emergency department for further evaluation. Patient does not have dentures and states that the slurred speech is new. Patient states that someone told him that his face looked different and that they are having a tough time understanding him which is why he decided to go to his primary care provider. Patient sees the [place] as his primary care provider. In the emergency department, the patient's symptoms persist. 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 Patient denies any other symptoms at this time and is otherwise feeling well. HOSPITAL COURSE: During the hospital stay and the following issue addressed MRI and MRA of the brain not show any signs of an acute CVA. Patient had something very similar to this if not the exact same thing happened in April 2020. I did speak with the patient's who stated that both times he was lifting something heavy when this happened. Patient was recommended to get EMGs done at that time. Patient will need to follow-up with neurology outpatient once he is able to be cleared from physical therapy standpoint. Patient will benefit from PT seeing them tomorrow but after discharge, patient will need to see outpatient [facility]y either in [place] or [facility]. I did contact Dr. Hidalgo with the results of the MRIs and these were his recommendations. DISCHARGE MEDICATIONS: Please see below. ALLERGIES: Please see below. PHYSICAL EXAMINATION ON DISCHARGE: VITAL SIGNS: Please see below. General: Alert and oriented male patient who was sitting on the stretcher when I walked in. Patient not appear to be in any acute distress. HEENT: Normocephalic, atraumatic, moist mucous membranes. Neck: No lymphadenopathy or thyromegaly Cardiac: Regular rate and rhythm, no murmurs, normal S1, normal S2 Pulm: Clear to auscultation bilaterally. No wheezes, rhonchi, rales Abd: Nondistended, nontender to palpation, normal bowel sounds Ext: No edema bilateral lower extremities Neuro: Patient had left-sided facial droop especially upon smiling. Spared the forehead. Patient was unable to puff out his cheeks LABORATORY DATA: Please see below. IMAGING: Exam: MR Head Without Contrast Exam date and time: 02/18/2021 3:51 PM Age: 65 years old Clinical indication: Weakness, extremity; Left; Additional info: Left sided arm weakness, R/O CVA TECHNIQUE: Imaging protocol: MR of the head without contrast. COMPARISON: CT Head without contrast 02/18/2021 11:40 AM FINDINGS: Brain: No restricted diffusion is seen to suggest acute infarction. There is no acute intracranial hemorrhage, cerebral edema, or midline shift. Age-related cerebral and cerebellar substance loss is present. Scattered increased T2 and FLAIR signal within the periventricular and subcortical white matter is present. This is nonspecific but likely related to chronic microangiopathic ischemic change. Additionally, there is nonspecific decreased T2 signal in the subcortical white matter of the right parietal lobe. This appears similar to the previous exam, but is easier to visualize due to slight differences in technique. The findings are nonspecific, but can be seen in the setting of chronic seizures. Cerebral ventricles: Mild ex vacuo dilation of the lateral ventricles is noted. Bones/joints: Unremarkable. Paranasal sinuses: Normal as visualized. No acute sinusitis. Mastoid air cells: Normal as visualized. No mastoid effusion. Orbital cavity: Unremarkable. Soft tissues: Unremarkable. IMPRESSION: 1. No acute intracranial abnormality. 2. Chronic findings as discussed above. Electronically signed by: Anish Carr On 02/18/2021 17:01:16 PM DD: ANISH CARR MD, MD 02/18/21 1551 DT: ARMAND 02/18/21 1701 DS: ISAAC 02/18/21 170 PROGNOSIS: ACTIVITY: [As tolerated]. DIET: Cardiac DISPOSITION: 01 Home, Self-Care. ITEMS TO FOLLOWUP ON ON OUTPATIENT: Follow-up with neurologist in the outpatient settings DISCHARGE CONDITION: [Stable]. TIME SPENT ON DISCHARGE: 40minutes. Vital Signs/I&Os Vital Signs Date Time Temp Pulse Resp B/P (MAP) Pulse Ox O2 Delivery O2 Flow Rate FiO2 02/19/21 06:00 97.6 68 16 106/60 (75) 96 Room Air I&O- Last 24 Hours up to 6 AM 02/19/21 05:59 Intake Total 600 ml Balance 600 ml Laboratory Data Labs 24H Laboratory Tests 2 02/18/21 20:17: Bedside Glucose (Misc Panel) 177H 02/19/21 05:46: Nucleated Red Blood Cells % (auto) 0.0, Anion Gap 10, Glomerular Filtration Rate > 60.0, Estimated Mean Plasma Glucose 263H, Hemoglobin A1c 10.8, Calcium Level 9.2, Magnesium Level 2.3, Triglycerides Level 336H, Total Cholesterol 106, LDL Cholesterol 14, Non-HDL Cholesterol (LDL + VLDL) 81, Total HDL Cholesterol 25L, Cholesterol/HDL Ratio 4.240 02/19/21 11:17: Bedside Glucose (Misc Panel) 187H CBC/BMP Laboratory Tests 02/19/21 05:46 FSBS Laboratory Tests Test 02/18/21 20:17 02/19/21 11:17 Range/Units Bedside Glucose (Misc Panel) 177 187 80-115 MG/DL Discharge Medications Scheduled Ascorbic Acid (Ascorbic Acid) 500 Mg Tablet, 500 MG PO DAILY, (Reported) Aspirin (Ecotrin) 81 Mg Tablet.dr, 81 MG PO DAILY, (Reported) Atorvastatin Calcium (Atorvastatin Calcium) 80 Mg Tablet, 80 MG PO QPM, (Reported) Biotin (Biotin) 5,000 Mcg Tab.rapdis, 5,000 MCG PO DAILY, (Reported) Cyanocobalamin (Vitamin B-12) (Vitamin B-12) 1,000 Mcg Tablet, 1,000 MCG PO BID, (Reported) Dulaglutide (Trulicity) 1.5 Mg/0.5 Ml Pen.injctr, 1.5 MG SC QWEEK, (Reported) SUNDAYS Empagliflozin (Jardiance) 25 Mg Tab, 25 MG PO DAILY, (Reported) Ezetimibe (Ezetimibe) 10 Mg Tablet, 10 MG PO QHS, (Reported) Hydrochlorothiazide (Hydrochlorothiazide) 12.5 Mg Tablet, 12.5 MG PO DAILY, (Reported) STATED THAT DR TOLD HIM TO STOP TAKING IT, THURSDAY WAS LAST DOSE. Insulin Glargine,Hum.rec.anlog (Lantus Solostar) 100 Unit/1 Ml Insuln.pen, 18 UNITS SC QHS, (Reported) Lisinopril (Lisinopril) 40 Mg Tablet, 20 MG PO QHS, (Reported) Metformin HCl (Metformin HCl) 1,000 Mg Tablet, 1,000 MG PO BID, (Reported) 2ND DOSE @ SUPPER Multivitamin with Minerals (Multiple Vitamin) 1 Each Tablet, 1 TAB PO DAILY, (R eported) Sertraline Hcl (Zoloft) 100 Mg Tablet, 100 MG PO DAILY, (Reported) Vitamin B Complex (Vitamin B Complex) 1 Each Tablet, 1 TAB PO DAILY, (Reported) Scheduled PRN Docusate Sodium (Colace) 100 Mg Capsule, 100 MG PO TID PRN for CONSTIPATION, (Reported) Allergies Coded Allergies: No Known Allergies (Unverified , 07/21/19) DAVID STACK DO Feb 19, 2021 18:55
--- NOTE | 2021-02-20 17:20 | ECGEPIP ---
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
== END 2021-02-19 13:47 | disposition home or self-care (01) | DRG 93 ==
LOC: M ED 10:42 → M ED INP 13:41 → ENRESERV 13:57 → M MSPAV 16:27
PROVIDERS: ADMIT Family Medicine; ATTEND Internal Medicine
DX: R29.810 Facial weakness (principal); R47.81 Slurred speech; R53.1 Weakness; E11.9 Type 2 diabetes mellitus without complications; I10 Essential (primary) hypertension; I25.10 Atherosclerotic heart disease of native coronary artery without angina pectoris; Z95.5 Presence of coronary angioplasty implant and graft; E78.5 Hyperlipidemia, unspecified; F31.9 Bipolar disorder, unspecified; F43.10 Post-traumatic stress disorder, unspecified; Z90.49 Acquired absence of other specified parts of digestive tract; Z87.891 Personal history of nicotine dependence; Z20.822 Contact with and (suspected) exposure to COVID-19; Z79.82 Long term (current) use of aspirin; Z79.4 Long term (current) use of insulin; Z79.899 Other long term (current) drug therapy; Z86.73 Personal history of transient ischemic attack (TIA), and cerebral infarction without residual deficits

== ENCOUNTER 2022-12-15 11:00 | Inpatient (IN) | payer OTHER ==
[~2022-12-15] VITALS: Ht 172.7 cm; Wt 61.2 kg
[~2022-12-15 11:00] MED LIST changes: +CYAN-1 PO; -CYAN100050 PO; +EZET10TA21 PO; +HYDR12.55 PO; +INSU100I6 SC; +LANTINJ4 SC; -LEVE1INJ5 SC; +TRUL0.5I SC; +ZOLO100T PO
[2022-12-15] MEDS ORDERED: NS 1,000 ML IV ONE ×2 (12:40→17:45)
[2022-12-15 13:13] LABS: BASO % 0.4 % (0.0-1.0); EOS # 0.1 10^3/uL (0.0-0.5); EOS % 0.9 % (0.0-3.0); HEMATOCRIT 45.6 % (42.0-52.0); HEMOGLOBIN 14.5 g/dl (13.5-17.5); LYMPH # 1.2 10^3/uL (1.5-5.0); LYMPH % 11.5 % (24.0-44.0); MEAN CORPUSCULAR HEMOGLOBIN 30.1 pg (27.0-33.0); MEAN CORPUSCULAR HGB CONC 31.8 g/dl (32.0-36.5); MEAN CORPUSCULAR VOLUME 94.6 fl (80.0-96.0); MONO % 9.3 % (2.0-8.0); NEUTROPHILS # 8.1 10^3/uL (1.5-8.5); NEUTROPHILS % 77.5 % (36.0-66.0); PLATELET COUNT, AUTOMATED 361 10^3/uL (150-450); RED BLOOD COUNT 4.82 10^6/uL (4.30-6.10); WHITE BLOOD COUNT 10.4 10^3/uL (4.0-10.0)
[2022-12-15 14:53] LABS: ERYTHROCYTE SEDIMENTATION RATE 88 mm/hr (0-20)
[2022-12-15] MEDS ORDERED: VANCOMYCIN HCL 1,250 MG in IV FLUID PLACE HOLDER 1 EA IV ONE (17:45)
[2022-12-15] MEDS ORDERED: VANCOMYCIN HCL 500 MG in D5W MINI-BAG PLUS 100 ML IV ONE (17:50)
[2022-12-15] MEDS ORDERED: GLUCAGON INJ 1MG VIAL SC PRN (18:05)
[2022-12-15] MEDS ORDERED: DEXTROSE 50% 50ML SYRINGE IV PRN (18:05)
[2022-12-15] MEDS ORDERED: MAALOX 30 ML SUSP *UDC PO PRN (18:05)
[2022-12-15] MEDS ORDERED: MOM 30ML SUSPENSION UDC PO PRN (18:05)
[2022-12-15] MEDS: NS 1,000 ML IV SCH (18:05)
[2022-12-15] MEDS ORDERED: GLUCOSE 4GM CHEW TABLET PO PRN (18:05)
[2022-12-15] MEDS ORDERED: VANCOMYCIN HCL 750 MG, VIAL MATE ADAPTER 1 EACH in D5W 250 ML IV ONE (18:50)
[2022-12-15 19:35] LABS: ALBUMIN 3.1 G/DL (3.2-5.2); ALKALINE PHOSPHATASE 84 U/L (46-116); ALT/SGPT 16 U/L (7.0-40); AST/SGOT 10 U/L (<34); BILIRUBIN,TOTAL 0.3 MG/DL (0.3-1.2); BLOOD UREA NITROGEN 17 MG/DL (9-23); CALCIUM LEVEL 8.9 MG/DL (8.3-10.6); CARBON DIOXIDE LEVEL 26 MMOL/L (20-31); CHLORIDE LEVEL 102 MMOL/L (98-107); CREATININE FOR GFR 0.73 MG/DL (0.70-1.30); GLOMERULAR FILTRATION RATE > 60.0 (>49); GLUCOSE, FASTING 191 MG/DL (74-106); POTASSIUM SERUM 4.2 MMOL/L (3.5-5.1); SODIUM LEVEL 140 MMOL/L (136-145); TOTAL PROTEIN 6.7 G/DL (5.7-8.2)
[2022-12-15] MEDS: INSULIN LISPRO (NovoLOG) PER UNIT SC SCH (21:00)
[2022-12-15 21:55] VITALS: BP 113/81; TEMP 97.8; O2SAT 98
[2022-12-15] MEDS: PIPERACILLIN/TAZOBACTAM SOD 3.375 GM in D5W MINI-BAG PLUS 50 ML IV SCH (22:40)
[2022-12-15] MEDS: DOCUSATE SODIUM 100MG CAPSULE PO SCH (22:40)
[2022-12-15] MEDS ORDERED: VITMTA PO (23:08)
[2022-12-15] MEDS ORDERED: HYDR12CA PO (23:08)
[2022-12-15] MEDS ORDERED: DULA3PEN SC (23:08)
[2022-12-15] MEDS ORDERED: DIVA500T9 PO (23:08)
[2022-12-15] MEDS ORDERED: VITA50TA47 PO (23:08)
[2022-12-15] MEDS ORDERED: DONE10TA90 PO (23:08)
[2022-12-15] MEDS ORDERED: HOME MED LIST COMPLETE! XX SCH (23:10)
[2022-12-16] VITALS (8 sets, daily range): BP systolic 106–154; BP diastolic 62–75; TEMP 96.8–97.7; O2SAT 6–99
[2022-12-16] MEDS: VANCOMYCIN HCL 1,000 MG, VIAL MATE ADAPTER 1 EACH in D5W 250 ML IV SCH ×3 (01:00→21:01)
[2022-12-16] MEDS: NS 1,000 ML IV SCH ×2 (04:59→18:30)
[2022-12-16] MEDS: PIPERACILLIN/TAZOBACTAM SOD 3.375 GM in D5W MINI-BAG PLUS 50 ML IV SCH ×4 (04:59→21:01)
[2022-12-16 06:45] LABS: BASO % 0.4 % (0.0-1.0); EOS # 0.2 10^3/uL (0.0-0.5); EOS % 2.3 % (0.0-3.0); HEMATOCRIT 40.9 % (42.0-52.0); LYMPH # 1.1 10^3/uL (1.5-5.0); LYMPH % 13.9 % (24.0-44.0); MEAN CORPUSCULAR HEMOGLOBIN 30.6 pg (27.0-33.0); MEAN CORPUSCULAR HGB CONC 31.8 g/dl (32.0-36.5); MEAN CORPUSCULAR VOLUME 96.2 fl (80.0-96.0); MONO # 0.9 10^3/uL (0.0-0.8); MONO % 10.7 % (2.0-8.0); NEUTROPHILS # 5.9 10^3/uL (1.5-8.5); NEUTROPHILS % 72.3 % (36.0-66.0); PLATELET COUNT, AUTOMATED 310 10^3/uL (150-450); RED BLOOD COUNT 4.25 10^6/uL (4.30-6.10); WHITE BLOOD COUNT 8.2 10^3/uL (4.0-10.0)
[2022-12-16 07:25] LABS: ALBUMIN 2.8 G/DL (3.2-5.2); ALKALINE PHOSPHATASE 73 U/L (46-116); ALT/SGPT 13 U/L (7.0-40); AST/SGOT 10 U/L (<34); BILIRUBIN,TOTAL 0.5 MG/DL (0.3-1.2); BLOOD UREA NITROGEN 11 MG/DL (9-23); CALCIUM LEVEL 8.8 MG/DL (8.3-10.6); CARBON DIOXIDE LEVEL 26 MMOL/L (20-31); CHLORIDE LEVEL 106 MMOL/L (98-107); CREATININE FOR GFR 0.74 MG/DL (0.70-1.30); GLOMERULAR FILTRATION RATE > 60.0 (>49); GLUCOSE, FASTING 146 MG/DL (74-106); MAGNESIUM LEVEL 1.8 MG/DL (1.8-2.4); POTASSIUM SERUM 4.5 MMOL/L (3.5-5.1); SODIUM LEVEL 141 MMOL/L (136-145); TOTAL PROTEIN 6.2 G/DL (5.7-8.2)
[2022-12-16] MEDS: INSULIN LISPRO (NovoLOG) PER UNIT SC SCH ×4 (07:30→20:51)
[2022-12-16] MEDS: DOCUSATE SODIUM 100MG CAPSULE PO SCH ×2 (07:59→20:59)
[2022-12-16] MEDS ORDERED: ISOVUE-300 61% 100ML VIAL As Ordered ONE (12:00)
[2022-12-16] MEDS ORDERED: HEPARIN 1,000UNITS/ML 10ML VIAL (FOR RADIOLOGY & DIALYSIS ONLY) As Ordered ONE (12:00)
[2022-12-16] MEDS ORDERED: MIDAZOLAM INJ 2MG/2ML VIAL As Ordered ONE (12:00)
[2022-12-16] MEDS ORDERED: fentaNYL 100 MCG/2 ML INJECTION As Ordered ONE ×2 (12:00→15:24)
[2022-12-16] MEDS ORDERED: LIDOCAINE 1% MDV 20ML VIAL As Ordered ONE (12:01)
[2022-12-16] MEDS ORDERED: MEPERIDINE 25 MG/ML 1ML VIAL As Ordered ONE (15:56)
[2022-12-16] MEDS ORDERED: NITROGLYCERIN IN D5W 25MG/250ML (100MCG/ML) As Ordered ONE (16:06)
[2022-12-16] MEDS ORDERED: CLOPIDOGREL 75 MG TAB PO ONE (16:22)
[2022-12-16] MEDS ORDERED: CLOPIDOGREL 75 MG TAB As Ordered ONE (16:41)
[2022-12-16] MEDS: ASPIRIN 81MG ENTERIC TABLET PO SCH (18:27)
[2022-12-16] MEDS: hydroCHLOROthiazide 12.5 MG CAPSULE PO SCH (18:27)
[2022-12-16] MEDS: DONEPEZIL 5 MG TAB PO SCH (18:27)
[2022-12-16] MEDS: LEVEMIR (INSULIN DETEMIR) 1 UNITS/0.01ML SC SCH (18:28)
[2022-12-16] MEDS: ATORVASTATIN 20 MG TAB PO SCH (18:28)
[2022-12-16] MEDS: ENOXAPARIN 40MG/0.4ML SYRINGE (J1650 PER 10MG) SC SCH (18:30)
[2022-12-16] MEDS: DIVALPROEX 500MG *ER* TAB PO SCH (21:00)
[2022-12-16] MEDS: EZETIMIBE 10MG TABLET (ZETIA) PO SCH (21:00)
[2022-12-17] VITALS (8 sets, daily range): BP systolic 98–131; BP diastolic 56–78; TEMP 97.9–99; O2SAT 94–98
[2022-12-17] MEDS: PIPERACILLIN/TAZOBACTAM SOD 3.375 GM in D5W MINI-BAG PLUS 50 ML IV SCH ×4 (03:45→20:20)
[2022-12-17 05:11] LABS: BASO % 0.2 % (0.0-1.0); EOS % 0.2 % (0.0-3.0); HEMATOCRIT 40.5 % (42.0-52.0); HEMOGLOBIN 12.7 g/dl (13.5-17.5); LYMPH # 1.2 10^3/uL (1.5-5.0); LYMPH % 11.8 % (24.0-44.0); MEAN CORPUSCULAR HEMOGLOBIN 29.7 pg (27.0-33.0); MEAN CORPUSCULAR HGB CONC 31.4 g/dl (32.0-36.5); MEAN CORPUSCULAR VOLUME 94.8 fl (80.0-96.0); MONO # 1.1 10^3/uL (0.0-0.8); MONO % 10.7 % (2.0-8.0); NEUTROPHILS # 7.7 10^3/uL (1.5-8.5); NEUTROPHILS % 76.5 % (36.0-66.0); PLATELET COUNT, AUTOMATED 349 10^3/uL (150-450); RED BLOOD COUNT 4.27 10^6/uL (4.30-6.10)
[2022-12-17 05:36] LABS: ALBUMIN 2.7 G/DL (3.2-5.2); ALKALINE PHOSPHATASE 69 U/L (46-116); ALT/SGPT 14 U/L (7.0-40); AST/SGOT 14 U/L (<34); BILIRUBIN,TOTAL 0.4 MG/DL (0.3-1.2); BLOOD UREA NITROGEN 12 MG/DL (9-23); CALCIUM LEVEL 8.7 MG/DL (8.3-10.6); CARBON DIOXIDE LEVEL 21 MMOL/L (20-31); CHLORIDE LEVEL 105 MMOL/L (98-107); CREATININE FOR GFR 0.72 MG/DL (0.70-1.30); GLOMERULAR FILTRATION RATE > 60.0 (>49); GLUCOSE, FASTING 110 MG/DL (74-106); MAGNESIUM LEVEL 1.8 MG/DL (1.8-2.4); POTASSIUM SERUM 4.2 MMOL/L (3.5-5.1); SODIUM LEVEL 139 MMOL/L (136-145); TOTAL PROTEIN 6.1 G/DL (5.7-8.2)
[2022-12-17] MEDS: NS 1,000 ML IV SCH (05:53)
[2022-12-17] MEDS: INSULIN LISPRO (NovoLOG) PER UNIT SC SCH ×4 (08:25→20:22)
[2022-12-17] MEDS: VANCOMYCIN HCL 1,000 MG, VIAL MATE ADAPTER 1 EACH in D5W 250 ML IV SCH ×2 (08:25→20:20)
[2022-12-17] MEDS: ASPIRIN 81MG ENTERIC TABLET PO SCH (08:28)
[2022-12-17] MEDS: DONEPEZIL 5 MG TAB PO SCH (08:28)
[2022-12-17] MEDS: DOCUSATE SODIUM 100MG CAPSULE PO SCH ×2 (08:28→20:21)
[2022-12-17] MEDS: hydroCHLOROthiazide 12.5 MG CAPSULE PO SCH (08:29)
[2022-12-17] MEDS: ENOXAPARIN 40MG/0.4ML SYRINGE (J1650 PER 10MG) SC SCH (08:29)
[2022-12-17] MEDS: CLOPIDOGREL 75 MG TAB PO SCH (08:29)
[2022-12-17] MEDS: ACETAMINOPHEN TAB 650MG DOSE (2X325MG) PO PRN ×2 (14:52→20:22)
[2022-12-17 15:44] LABS: HEMATOCRIT 39.8 % (42.0-52.0); HEMOGLOBIN 12.8 g/dl (13.5-17.5)
[2022-12-17] MEDS: LEVEMIR (INSULIN DETEMIR) 1 UNITS/0.01ML SC SCH (17:43)
[2022-12-17] MEDS: ATORVASTATIN 20 MG TAB PO SCH (17:53)
[2022-12-17] MEDS: DIVALPROEX 500MG *ER* TAB PO SCH (20:21)
[2022-12-17] MEDS: EZETIMIBE 10MG TABLET (ZETIA) PO SCH (20:22)
[2022-12-18] MEDS ORDERED: NYSTATIN 100,000 UNITS/GM TOPICAL PWD 15GM TOP PRN (01:40)
[2022-12-18] MEDS: PIPERACILLIN/TAZOBACTAM SOD 3.375 GM in D5W MINI-BAG PLUS 50 ML IV SCH ×4 (03:18→20:52)
[2022-12-18 04:31] VITALS: BP 111/56; TEMP 97.9; O2SAT 96
[2022-12-18 07:09] LABS: BASO % 0.3 % (0.0-1.0); EOS # 0.1 10^3/uL (0.0-0.5); EOS % 1.4 % (0.0-3.0); HEMATOCRIT 37.4 % (42.0-52.0); HEMOGLOBIN 12.3 g/dl (13.5-17.5); LYMPH # 1.1 10^3/uL (1.5-5.0); LYMPH % 12.7 % (24.0-44.0); MEAN CORPUSCULAR HGB CONC 32.9 g/dl (32.0-36.5); MEAN CORPUSCULAR VOLUME 91.2 fl (80.0-96.0); MONO # 1.1 10^3/uL (0.0-0.8); MONO % 12.1 % (2.0-8.0); NEUTROPHILS # 6.3 10^3/uL (1.5-8.5); PLATELET COUNT, AUTOMATED 313 10^3/uL (150-450); WHITE BLOOD COUNT 8.7 10^3/uL (4.0-10.0)
[2022-12-18] MEDS: INSULIN LISPRO (NovoLOG) PER UNIT SC SCH ×4 (07:30→20:50)
[2022-12-18 07:35] LABS: VANCOMYCIN LEVEL TROUGH 20.5 UG/ML (10.0-20.0)
[2022-12-18 07:38] VITALS: BP 94/58; TEMP 97.8; O2SAT 98
[2022-12-18 08:08] LABS: ALBUMIN 2.6 G/DL (3.2-5.2); ALKALINE PHOSPHATASE 64 U/L (46-116); ALT/SGPT 13 U/L (7.0-40); AST/SGOT 16 U/L (<34); BILIRUBIN,TOTAL 0.3 MG/DL (0.3-1.2); BLOOD UREA NITROGEN 8 MG/DL (9-23); CALCIUM LEVEL 8.4 MG/DL (8.3-10.6); CARBON DIOXIDE LEVEL 26 MMOL/L (20-31); CHLORIDE LEVEL 107 MMOL/L (98-107); CREATININE FOR GFR 0.77 MG/DL (0.70-1.30); GLOMERULAR FILTRATION RATE > 60.0 (>49); GLUCOSE, FASTING 67 MG/DL (74-106); MAGNESIUM LEVEL 1.8 MG/DL (1.8-2.4); POTASSIUM SERUM 3.5 MMOL/L (3.5-5.1); SODIUM LEVEL 141 MMOL/L (136-145); TOTAL PROTEIN 5.9 G/DL (5.7-8.2)
[2022-12-18] MEDS: ENOXAPARIN 40MG/0.4ML SYRINGE (J1650 PER 10MG) SC SCH (08:42)
[2022-12-18] MEDS: hydroCHLOROthiazide 12.5 MG CAPSULE PO SCH ×2 (08:43→09:00)
[2022-12-18] MEDS: CLOPIDOGREL 75 MG TAB PO SCH (08:43)
[2022-12-18] MEDS: DOCUSATE SODIUM 100MG CAPSULE PO SCH (08:44)
[2022-12-18] MEDS: ASPIRIN 81MG ENTERIC TABLET PO SCH (08:44)
[2022-12-18] MEDS: DONEPEZIL 5 MG TAB PO SCH (08:44)
[2022-12-18] MEDS ORDERED: VANCOMYCIN HCL 750 MG, VIAL MATE ADAPTER 1 EACH in D5W 250 ML IV SCH (10:00)
[2022-12-18 11:30] VITALS: BP 126/73; TEMP 98; O2SAT 100
[2022-12-18 15:41] VITALS: BP 99/66; TEMP 97.8; O2SAT 94
[2022-12-18] MEDS: ATORVASTATIN 20 MG TAB PO SCH (18:00)
[2022-12-18] MEDS: LEVEMIR (INSULIN DETEMIR) 1 UNITS/0.01ML SC SCH (18:03)
[2022-12-18 19:26] VITALS: BP 112/73; TEMP 98; O2SAT 97
[2022-12-18] MEDS: DIVALPROEX 500MG *ER* TAB PO SCH (20:49)
[2022-12-18] MEDS: EZETIMIBE 10MG TABLET (ZETIA) PO SCH (20:49)
[2022-12-18] MEDS: ANUSOL HC CREAM 30GM TOP SCH (20:50)
[2022-12-18 23:23] VITALS: BP 106/66; TEMP 97.9; O2SAT 94
[2022-12-19] VITALS (7 sets, daily range): BP systolic 90–147; BP diastolic 52–78; TEMP 97.6–98.4; O2SAT 94–100
[2022-12-19] MEDS: PIPERACILLIN/TAZOBACTAM SOD 3.375 GM in D5W MINI-BAG PLUS 50 ML IV SCH ×4 (03:02→21:45)
[2022-12-19 05:17] LABS: BASO # 0.1 10^3/uL (0.0-0.2); BASO % 0.6 % (0.0-1.0); EOS # 0.3 10^3/uL (0.0-0.5); EOS % 3.9 % (0.0-3.0); HEMATOCRIT 37.1 % (42.0-52.0); LYMPH # 1.3 10^3/uL (1.5-5.0); LYMPH % 15.5 % (24.0-44.0); MEAN CORPUSCULAR HEMOGLOBIN 30.2 pg (27.0-33.0); MEAN CORPUSCULAR HGB CONC 32.3 g/dl (32.0-36.5); MEAN CORPUSCULAR VOLUME 93.2 fl (80.0-96.0); MONO # 1.1 10^3/uL (0.0-0.8); NEUTROPHILS # 5.8 10^3/uL (1.5-8.5); NEUTROPHILS % 66.5 % (36.0-66.0); PLATELET COUNT, AUTOMATED 336 10^3/uL (150-450); RED BLOOD COUNT 3.98 10^6/uL (4.30-6.10); WHITE BLOOD COUNT 8.7 10^3/uL (4.0-10.0)
[2022-12-19 05:59] LABS: ALBUMIN 2.6 G/DL (3.2-5.2); ALKALINE PHOSPHATASE 84 U/L (46-116); ALT/SGPT 27 U/L (7.0-40); AST/SGOT 28 U/L (<34); BILIRUBIN,TOTAL 0.2 MG/DL (0.3-1.2); BLOOD UREA NITROGEN 8 MG/DL (9-23); CALCIUM LEVEL 8.1 MG/DL (8.3-10.6); CARBON DIOXIDE LEVEL 23 MMOL/L (20-31); CHLORIDE LEVEL 106 MMOL/L (98-107); CREATININE FOR GFR 0.78 MG/DL (0.70-1.30); GLOMERULAR FILTRATION RATE > 60.0 (>49); GLUCOSE, FASTING 206 MG/DL (74-106); SODIUM LEVEL 140 MMOL/L (136-145)
[2022-12-19] MEDS: INSULIN LISPRO (NovoLOG) PER UNIT SC SCH ×4 (08:29→20:07)
[2022-12-19] MEDS: DONEPEZIL 5 MG TAB PO SCH (08:29)
[2022-12-19] MEDS: ASPIRIN 81MG ENTERIC TABLET PO SCH (08:29)
[2022-12-19] MEDS: ENOXAPARIN 40MG/0.4ML SYRINGE (J1650 PER 10MG) SC SCH (08:29)
[2022-12-19] MEDS: CLOPIDOGREL 75 MG TAB PO SCH (08:30)
[2022-12-19] MEDS: hydroCHLOROthiazide 12.5 MG CAPSULE PO SCH (09:00)
[2022-12-19 09:53] LABS: MAGNESIUM LEVEL 2.1 MG/DL (1.8-2.4)
[2022-12-19] MEDS: ANUSOL HC CREAM 30GM TOP SCH ×2 (11:00→21:45)
[2022-12-19] MEDS: ACETAMINOPHEN TAB 650MG DOSE (2X325MG) PO PRN ×2 (11:05→21:46)
[2022-12-19] MEDS: ATORVASTATIN 20 MG TAB PO SCH (17:41)
[2022-12-19] MEDS: LACTOBACILLUS ACIDOPHILUS CAP (BACID) PO SCH (17:41)
[2022-12-19] MEDS ORDERED: LEVEMIR (INSULIN DETEMIR) 1 UNITS/0.01ML SC SCH (21:00)
[2022-12-19] MEDS: EZETIMIBE 10MG TABLET (ZETIA) PO SCH (21:44)
[2022-12-19] MEDS: DIVALPROEX 500MG *ER* TAB PO SCH (21:44)
[2022-12-20] MEDS: PIPERACILLIN/TAZOBACTAM SOD 3.375 GM in D5W MINI-BAG PLUS 50 ML IV SCH ×2 (03:20→08:44)
[2022-12-20 05:28] VITALS: BP_SYST 97; BP_SYST 99; BP_DIAS 63; BP_DIAS 65; TEMP 97.7; O2SAT 96
[2022-12-20 06:26] LABS: BASO # 0.1 10^3/uL (0.0-0.2); BASO % 0.8 % (0.0-1.0); EOS # 0.5 10^3/uL (0.0-0.5); EOS % 6.8 % (0.0-3.0); HEMATOCRIT 37.8 % (42.0-52.0); HEMOGLOBIN 12.1 g/dl (13.5-17.5); LYMPH # 1.6 10^3/uL (1.5-5.0); MEAN CORPUSCULAR HEMOGLOBIN 30.2 pg (27.0-33.0); MEAN CORPUSCULAR VOLUME 94.3 fl (80.0-96.0); MONO # 0.8 10^3/uL (0.0-0.8); MONO % 10.7 % (2.0-8.0); NEUTROPHILS # 4.4 10^3/uL (1.5-8.5); NEUTROPHILS % 58.8 % (36.0-66.0); PLATELET COUNT, AUTOMATED 347 10^3/uL (150-450); RED BLOOD COUNT 4.01 10^6/uL (4.30-6.10); WHITE BLOOD COUNT 7.5 10^3/uL (4.0-10.0)
[2022-12-20 06:51] LABS: ALBUMIN 2.5 G/DL (3.2-5.2); ALKALINE PHOSPHATASE 72 U/L (46-116); ALT/SGPT 26 U/L (7.0-40); AST/SGOT 20 U/L (<34); BILIRUBIN,TOTAL 0.3 MG/DL (0.3-1.2); BLOOD UREA NITROGEN 6 MG/DL (9-23); CALCIUM LEVEL 8.6 MG/DL (8.3-10.6); CARBON DIOXIDE LEVEL 28 MMOL/L (20-31); CHLORIDE LEVEL 105 MMOL/L (98-107); CREATININE FOR GFR 0.72 MG/DL (0.70-1.30); GLOMERULAR FILTRATION RATE > 60.0 (>49); GLUCOSE, FASTING 162 MG/DL (74-106); MAGNESIUM LEVEL 2.1 MG/DL (1.8-2.4); POTASSIUM SERUM 4.1 MMOL/L (3.5-5.1); SODIUM LEVEL 139 MMOL/L (136-145); TOTAL PROTEIN 5.9 G/DL (5.7-8.2)
[2022-12-20] MEDS: INSULIN LISPRO (NovoLOG) PER UNIT SC SCH ×4 (08:43→21:00)
[2022-12-20] MEDS: ASPIRIN 81MG ENTERIC TABLET PO SCH (08:44)
[2022-12-20] MEDS: CLOPIDOGREL 75 MG TAB PO SCH (08:44)
[2022-12-20] MEDS: ENOXAPARIN 40MG/0.4ML SYRINGE (J1650 PER 10MG) SC SCH (08:44)
[2022-12-20] MEDS: LACTOBACILLUS ACIDOPHILUS CAP (BACID) PO SCH ×2 (08:44→17:39)
[2022-12-20] MEDS: DONEPEZIL 5 MG TAB PO SCH (08:44)
[2022-12-20] MEDS: ANUSOL HC CREAM 30GM TOP SCH ×2 (08:45→21:33)
[2022-12-20] MEDS ORDERED: LEVEMIR (INSULIN DETEMIR) 1 UNITS/0.01ML SC ONE (12:00)
[2022-12-20] MEDS: CEPHALEXIN 500 MG CAP PO SCH ×3 (13:02→21:33)
[2022-12-20 14:00] VITALS: BP 99/57; TEMP 97.9; O2SAT 99
[2022-12-20] MEDS: ATORVASTATIN 20 MG TAB PO SCH (17:39)
[2022-12-20 20:10] VITALS: BP 135/68; TEMP 98.4; O2SAT 99
[2022-12-20] MEDS: LEVEMIR (INSULIN DETEMIR) 1 UNITS/0.01ML SC SCH (21:32)
[2022-12-20] MEDS: DIVALPROEX 500MG *ER* TAB PO SCH (21:33)
[2022-12-20] MEDS: EZETIMIBE 10MG TABLET (ZETIA) PO SCH (21:33)
[2022-12-21 06:00] VITALS: BP 100/62; TEMP 98.1; O2SAT 95
[2022-12-21] MEDS: ASPIRIN 81MG ENTERIC TABLET PO SCH (08:34)
[2022-12-21] MEDS: LACTOBACILLUS ACIDOPHILUS CAP (BACID) PO SCH ×2 (08:34→18:15)
[2022-12-21] MEDS: CLOPIDOGREL 75 MG TAB PO SCH (08:34)
[2022-12-21] MEDS: LEVEMIR (INSULIN DETEMIR) 1 UNITS/0.01ML SC SCH ×2 (08:34→21:24)
[2022-12-21] MEDS: CEPHALEXIN 500 MG CAP PO SCH ×4 (08:34→21:24)
[2022-12-21] MEDS: DONEPEZIL 5 MG TAB PO SCH (08:34)
[2022-12-21] MEDS: INSULIN LISPRO (NovoLOG) PER UNIT SC SCH ×4 (08:35→21:00)
[2022-12-21] MEDS: ENOXAPARIN 40MG/0.4ML SYRINGE (J1650 PER 10MG) SC SCH (08:35)
[2022-12-21] MEDS: ANUSOL HC CREAM 30GM TOP SCH ×2 (08:35→21:25)
[2022-12-21] MEDS: ATORVASTATIN 20 MG TAB PO SCH (18:15)
[2022-12-21 20:20] VITALS: BP 147/73
[2022-12-21 21:24] VITALS: BP 147/73
[2022-12-21] MEDS: DIVALPROEX 500MG *ER* TAB PO SCH (21:24)
[2022-12-21] MEDS: EZETIMIBE 10MG TABLET (ZETIA) PO SCH (21:24)
[2022-12-22 05:27] VITALS: BP 142/74; TEMP 98.4; O2SAT 98
[2022-12-22] MEDS: ENOXAPARIN 40MG/0.4ML SYRINGE (J1650 PER 10MG) SC SCH (08:16)
[2022-12-22] MEDS: INSULIN LISPRO (NovoLOG) PER UNIT SC SCH ×2 (08:16→12:11)
[2022-12-22] MEDS: LEVEMIR (INSULIN DETEMIR) 1 UNITS/0.01ML SC SCH (08:16)
[2022-12-22] MEDS: ANUSOL HC CREAM 30GM TOP SCH (08:17)
[2022-12-22] MEDS: LACTOBACILLUS ACIDOPHILUS CAP (BACID) PO SCH (08:17)
[2022-12-22] MEDS: ASPIRIN 81MG ENTERIC TABLET PO SCH (08:17)
[2022-12-22] MEDS: CEPHALEXIN 500 MG CAP PO SCH ×2 (08:17→12:11)
[2022-12-22] MEDS: DONEPEZIL 5 MG TAB PO SCH (08:17)
[2022-12-22] MEDS: CLOPIDOGREL 75 MG TAB PO SCH (08:17)
[2022-12-22] MEDS ORDERED: CEPH500C PO (10:49)
[2022-12-22] MEDS ORDERED: NYST1POW9 TOP (10:49)
[2022-12-22] MEDS ORDERED: CLOP75TA2 PO (10:49)
[2022-12-22] MEDS ORDERED: OXYC1TAB23 PO (10:53)
== END 2022-12-22 15:43 | disposition home health service (06) | DRG 253 ==
LOC: M ED 11:00 → M ED INP 18:02 → M PCU 21:47 → M MSPAV 12-19 18:52
PROVIDERS: ADMIT Internal Medicine; ATTEND Internal Medicine
PROC: 047K3ZZ Dilation of Right Femoral Artery, Percutaneous Approach (ICD-10-PCS; 2022-12-16)
PROC: 047L3ZZ Dilation of Left Femoral Artery, Percutaneous Approach (ICD-10-PCS; 2022-12-16)
PROC: 04FM3ZZ Fragmentation of Right Popliteal Artery, Percutaneous Approach (ICD-10-PCS; 2022-12-16)
PROC: 04FK3ZZ Fragmentation of Right Femoral Artery, Percutaneous Approach (ICD-10-PCS; 2022-12-16)
PROC: 047N3ZZ Dilation of Left Popliteal Artery, Percutaneous Approach (ICD-10-PCS; principal; 2022-12-16 13:00)
DX: E11.52 Type 2 diabetes mellitus with diabetic peripheral angiopathy with gangrene (principal); E87.20 Acidosis, unspecified; L02.415 Cutaneous abscess of right lower limb; L97.519 Non-pressure chronic ulcer of other part of right foot with unspecified severity; I10 Essential (primary) hypertension; I25.10 Atherosclerotic heart disease of native coronary artery without angina pectoris; E11.40 Type 2 diabetes mellitus with diabetic neuropathy, unspecified; E11.621 Type 2 diabetes mellitus with foot ulcer; L25.9 Unspecified contact dermatitis, unspecified cause; L30.4 Erythema intertrigo; Z86.73 Personal history of transient ischemic attack (TIA), and cerebral infarction without residual deficits; F31.9 Bipolar disorder, unspecified; F43.10 Post-traumatic stress disorder, unspecified; R19.7 Diarrhea, unspecified; E78.5 Hyperlipidemia, unspecified; F03.90 Unspecified dementia, unspecified severity, without behavioral disturbance, psychotic disturbance, mood disturbance, and anxiety; Z79.82 Long term (current) use of aspirin; Z79.899 Other long term (current) drug therapy; Z95.2 Presence of prosthetic heart valve

== ENCOUNTER 2023-01-09 21:50 | Inpatient (IN) | payer MEDICARE, OTHER ==
[~2023-01-09] VITALS: Ht 180.3 cm; Wt 65.1 kg
[~2023-01-09 21:50] MED LIST changes: +CEPH500C PO; +DIVA500T9 PO; +DONE10TA90 PO; +DULA3PEN SC; +NYST1POW9 TOP; +OXYC1TAB23 PO; +VITA50TA47 PO; +VITMTA PO
[2023-01-09 22:32] LABS: HEMATOCRIT 36.5 % (42.0-52.0); HEMOGLOBIN 11.7 g/dl (13.5-17.5); MEAN CORPUSCULAR HEMOGLOBIN 29.5 pg (27.0-33.0); MEAN CORPUSCULAR HGB CONC 32.1 g/dl (32.0-36.5); MEAN CORPUSCULAR VOLUME 91.9 fl (80.0-96.0); PLATELET COUNT, AUTOMATED 354 10^3/uL (150-450); RED BLOOD COUNT 3.97 10^6/uL (4.30-6.10); WHITE BLOOD COUNT 15.4 10^3/uL (4.0-10.0)
[2023-01-09 22:38] LABS: ERYTHROCYTE SEDIMENTATION RATE 118 mm/hr (0-20)
[2023-01-09 22:55] LABS: RSV AMPLIFICATION NEGATIVE (NEGATIVE)
[2023-01-09 22:56] LABS: ALBUMIN 2.5 G/DL (3.2-5.2); ALKALINE PHOSPHATASE 125 U/L (46-116); ALT/SGPT 54 U/L (7.0-40); AST/SGOT 75 U/L (<34); BILIRUBIN,TOTAL 0.3 MG/DL (0.3-1.2); BLOOD UREA NITROGEN 27 MG/DL (9-23); CALCIUM LEVEL 8.5 MG/DL (8.3-10.6); CARBON DIOXIDE LEVEL 21 MMOL/L (20-31); CHLORIDE LEVEL 102 MMOL/L (98-107); CREATININE FOR GFR 0.74 MG/DL (0.70-1.30); GLOMERULAR FILTRATION RATE > 60.0 (>49); GLUCOSE, FASTING 224 MG/DL (74-106); POTASSIUM SERUM 5.6 MMOL/L (3.5-5.1); SODIUM LEVEL 136 MMOL/L (136-145); TOTAL PROTEIN 6.5 G/DL (5.7-8.2)
[2023-01-09 23:02] LABS: ATYPICAL LYMPH 1 % (0-5); BASOPHILS 1 % (0-1); LYMPHOCYTES 2 % (16-44); MONOCYTES 9 % (0-5); NEUTROPHILS 85 % (28-66)
[2023-01-09 23:04] LABS: PLATELET ESTIMATE NORMAL (NORMAL)
[2023-01-09] MEDS ORDERED: PIPERACILLIN/TAZOBACTAM SOD 4.5 GM in D5W MINI-BAG PLUS 50 ML IV ONE (23:20)
[2023-01-09] MEDS ORDERED: VANCOMYCIN HCL 1,000 MG in IV FLUID PLACE HOLDER 1 EA IV ONE (23:20)
[2023-01-09] MEDS ORDERED: CLOP75TA2 PO (23:57)
[2023-01-09] MEDS ORDERED: CEPH500C PO (23:57)
[2023-01-10] MEDS ORDERED: VANCOMYCIN HCL 1,000 MG, VIAL MATE ADAPTER 1 EACH in D5W 250 ML IV ONE ×3
[2023-01-10] MEDS ORDERED: HOME MED LIST COMPLETE! XX SCH
[2023-01-10] MEDS ORDERED: ISOVUE-370 76% 100ML VIAL As Ordered ONE (00:07)
[2023-01-10] MEDS ORDERED: SOD POLYSTYRENE SULFONATE SUSP 15GM 60ML UD PO ONE (00:55)
[2023-01-10] MEDS ORDERED: GLUCAGON INJ 1MG VIAL SC PRN (00:55)
[2023-01-10] MEDS ORDERED: ALBUTEROL SULFATE 2.5MG/0.5ML INH NEB SOLN NEB PRN (00:55)
[2023-01-10] MEDS ORDERED: ONDANSETRON 4MG 2ML VIAL IV PRN ×2 (00:55→13:45)
[2023-01-10] MEDS ORDERED: DEXTROSE 50% 50ML SYRINGE IV PRN (00:55)
[2023-01-10] MEDS ORDERED: HYDROMORPHONE HCL 0.5 MG/ 0.5 ML SYRINGE IV PRN ×2 (00:55→13:45)
[2023-01-10] MEDS ORDERED: HEPARIN SOD (PORCINE) 5000UNITS/ML 1ML VIAL/SYRINGE IV PRN (00:55)
[2023-01-10] MEDS ORDERED: GLUCOSE 4GM CHEW TABLET PO PRN (00:55)
[2023-01-10] MEDS ORDERED: NS 1,000 ML IV ONE (01:15)
[2023-01-10] MEDS ORDERED: HEPARIN DRIP 25,000 UNITS in IV 1 EA IV SCH (02:00)
[2023-01-10] MEDS ORDERED: HEPARIN SOD (PORCINE) 5000UNITS/ML 1ML VIAL/SYRINGE IV ONE (02:00)
[2023-01-10] MEDS: HYDROMORPHONE HCL 0.5 MG/ 0.5 ML SYRINGE IV PRN (02:22)
[2023-01-10] MEDS: NS 1,000 ML IV SCH ×2 (03:43→11:41)
[2023-01-10] MEDS: DIVALPROEX 500MG *ER* TAB PO SCH ×2 (03:43→20:26)
[2023-01-10] MEDS: INSULIN LISPRO (NovoLOG) PER UNIT SC SCH ×4 (06:00→20:26)
[2023-01-10] MEDS: VANCOMYCIN HCL 1,000 MG, VIAL MATE ADAPTER 1 EACH in D5W 250 ML IV SCH ×2 (08:34→20:25)
[2023-01-10 08:47] LABS: HEMATOCRIT 35.9 % (42.0-52.0); HEMOGLOBIN 11.3 g/dl (13.5-17.5); MEAN CORPUSCULAR HEMOGLOBIN 29.5 pg (27.0-33.0); MEAN CORPUSCULAR HGB CONC 31.5 g/dl (32.0-36.5); MEAN CORPUSCULAR VOLUME 93.7 fl (80.0-96.0); PLATELET COUNT, AUTOMATED 335 10^3/uL (150-450); RED BLOOD COUNT 3.83 10^6/uL (4.30-6.10); WHITE BLOOD COUNT 12.5 10^3/uL (4.0-10.0)
[2023-01-10] MEDS: ASPIRIN 81MG CHEW TABLET PO SCH (09:00)
[2023-01-10] MEDS: CLOPIDOGREL 75 MG TAB PO SCH (09:00)
[2023-01-10] MEDS: MULTIVITAMINS/MINERALS THERAP 1 TAB PO SCH (09:00)
[2023-01-10 09:10] VITALS: BP 98/61; TEMP 97.9; O2SAT 98
[2023-01-10 10:52] LABS: ALBUMIN 2.2 G/DL (3.2-5.2); ALKALINE PHOSPHATASE 104 U/L (46-116); ALT/SGPT 41 U/L (7.0-40); AST/SGOT 29 U/L (<34); BILIRUBIN,TOTAL 0.3 MG/DL (0.3-1.2); BLOOD UREA NITROGEN 22 MG/DL (9-23); CALCIUM LEVEL 8.3 MG/DL (8.3-10.6); CARBON DIOXIDE LEVEL 25 MMOL/L (20-31); CHLORIDE LEVEL 108 MMOL/L (98-107); CREATININE FOR GFR 0.69 MG/DL (0.70-1.30); GLOMERULAR FILTRATION RATE > 60.0 (>49); GLUCOSE, FASTING 147 MG/DL (74-106); POTASSIUM SERUM 4.4 MMOL/L (3.5-5.1); SODIUM LEVEL 139 MMOL/L (136-145); TOTAL PROTEIN 5.8 G/DL (5.7-8.2)
[2023-01-10 12:00] VITALS: BP 104/66; TEMP 97.8; O2SAT 97
[2023-01-10] MEDS ORDERED: LIDOCAINE 2% MDV 20ML VIAL As Ordered ONE (12:45)
[2023-01-10] MEDS ORDERED: GENTAMICIN SULF 80MG/2ML VIAL As Ordered ONE (13:15)
[2023-01-10] MEDS ORDERED: LIDOCAINE 2% 100MG/5ML SDV (FOR ANES.) As Ordered ONE (13:21)
[2023-01-10] MEDS ORDERED: propofoL 200 MG/20 ML VIAL As Ordered ONE (13:21)
[2023-01-10] MEDS ORDERED: fentaNYL 100 MCG/2 ML INJECTION As Ordered ONE (13:21)
[2023-01-10] MEDS ORDERED: fentaNYL 100 MCG/2 ML INJECTION IV PRN (13:45)
[2023-01-10] MEDS ORDERED: oxyCODONE 5MG TAB PO PRN (13:45)
[2023-01-10 14:25] VITALS: BP 112/74; TEMP 97.4; O2SAT 99
[2023-01-10 16:00] VITALS: BP 133/70; TEMP 98.3; O2SAT 99
[2023-01-10 20:00] VITALS: BP 120/65; TEMP 99.5; O2SAT 96
[2023-01-10] MEDS: LEVEMIR (INSULIN DETEMIR) 1 UNITS/0.01ML SC SCH (20:26)
[2023-01-10] MEDS: EZETIMIBE 10MG TABLET (ZETIA) PO SCH (20:26)
[2023-01-10] MEDS: ATORVASTATIN 20 MG TAB PO SCH (20:27)
[2023-01-10] MEDS: THIAMINE 100 MG TAB PO SCH (20:27)
[2023-01-10] MEDS: MICONAZOLE 2 % POWDER (DESENEX) TOP SCH (23:36)
[2023-01-11] VITALS: BP 122/68; TEMP 100.9; O2SAT 96
[2023-01-11] MEDS: NS 1,000 ML IV SCH ×3 (01:06→20:54)
[2023-01-11 04:00] VITALS: BP 110/59; TEMP 98.7; O2SAT 95
[2023-01-11] MEDS: INSULIN LISPRO (NovoLOG) PER UNIT SC SCH ×4 (07:30→20:22)
[2023-01-11 07:39] LABS: BASO # 0.1 10^3/uL (0.0-0.2); BASO % 0.5 % (0.0-1.0); EOS # 0.3 10^3/uL (0.0-0.5); EOS % 2.1 % (0.0-3.0); HEMATOCRIT 32.5 % (42.0-52.0); HEMOGLOBIN 10.3 g/dl (13.5-17.5); LYMPH # 2.3 10^3/uL (1.5-5.0); LYMPH % 16.7 % (24.0-44.0); MEAN CORPUSCULAR HEMOGLOBIN 29.8 pg (27.0-33.0); MEAN CORPUSCULAR HGB CONC 31.7 g/dl (32.0-36.5); MEAN CORPUSCULAR VOLUME 93.9 fl (80.0-96.0); MONO # 1.3 10^3/uL (0.0-0.8); MONO % 9.7 % (2.0-8.0); NEUTROPHILS # 9.7 10^3/uL (1.5-8.5); NEUTROPHILS % 70.1 % (36.0-66.0); PLATELET COUNT, AUTOMATED 353 10^3/uL (150-450); RED BLOOD COUNT 3.46 10^6/uL (4.30-6.10); WHITE BLOOD COUNT 13.9 10^3/uL (4.0-10.0)
[2023-01-11 08:00] VITALS: BP 103/57; TEMP 98.4; O2SAT 96
[2023-01-11 08:01] LABS: ALKALINE PHOSPHATASE 113 U/L (46-116); ALT/SGPT 72 U/L (7.0-40); AST/SGOT 90 U/L (<34); BILIRUBIN,TOTAL 0.2 MG/DL (0.3-1.2); BLOOD UREA NITROGEN 9 MG/DL (9-23); CARBON DIOXIDE LEVEL 21 MMOL/L (20-31); CHLORIDE LEVEL 111 MMOL/L (98-107); CREATININE FOR GFR 0.59 MG/DL (0.70-1.30); GLOMERULAR FILTRATION RATE > 60.0 (>49); GLUCOSE, FASTING 58 MG/DL (74-106); POTASSIUM SERUM 4.4 MMOL/L (3.5-5.1); SODIUM LEVEL 141 MMOL/L (136-145); TOTAL PROTEIN 5.3 G/DL (5.7-8.2)
[2023-01-11] MEDS: MICONAZOLE 2 % POWDER (DESENEX) TOP SCH ×2 (08:36→20:54)
[2023-01-11] MEDS: VANCOMYCIN HCL 1,000 MG, VIAL MATE ADAPTER 1 EACH in D5W 250 ML IV SCH ×2 (08:37→20:53)
[2023-01-11] MEDS: MULTIVITAMINS/MINERALS THERAP 1 TAB PO SCH (08:37)
[2023-01-11] MEDS: ASPIRIN 81MG CHEW TABLET PO SCH (08:37)
[2023-01-11] MEDS: CLOPIDOGREL 75 MG TAB PO SCH (08:37)
[2023-01-11] MEDS ORDERED: NS 1,000 ML IV ONE (09:25)
[2023-01-11 16:00] VITALS: BP 108/61; TEMP 98.3; O2SAT 97
[2023-01-11 20:46] VITALS: BP 119/68; TEMP 99; O2SAT 96
[2023-01-11] MEDS: LEVEMIR (INSULIN DETEMIR) 1 UNITS/0.01ML SC SCH (20:51)
[2023-01-11] MEDS: ATORVASTATIN 20 MG TAB PO SCH (20:51)
[2023-01-11] MEDS: DIVALPROEX 500MG *ER* TAB PO SCH (20:52)
[2023-01-11] MEDS: EZETIMIBE 10MG TABLET (ZETIA) PO SCH (20:52)
[2023-01-11] MEDS: THIAMINE 100 MG TAB PO SCH (20:52)
[2023-01-11 23:15] VITALS: BP 118/66; TEMP 98.8; O2SAT 95
[2023-01-12] MEDS: NS 1,000 ML IV SCH ×3 (01:36→19:23)
[2023-01-12 05:19] VITALS: BP 115/61; TEMP 98.2; O2SAT 92
[2023-01-12] MEDS: VANCOMYCIN HCL 1,000 MG, VIAL MATE ADAPTER 1 EACH in D5W 250 ML IV SCH (08:40)
[2023-01-12] MEDS: CLOPIDOGREL 75 MG TAB PO SCH (08:40)
[2023-01-12] MEDS: MULTIVITAMINS/MINERALS THERAP 1 TAB PO SCH (08:40)
[2023-01-12] MEDS: INSULIN LISPRO (NovoLOG) PER UNIT SC SCH ×4 (08:40→21:53)
[2023-01-12] MEDS: ASPIRIN 81MG CHEW TABLET PO SCH (08:40)
[2023-01-12] MEDS: MICONAZOLE 2 % POWDER (DESENEX) TOP SCH ×2 (08:41→21:00)
[2023-01-12 11:49] LABS: BASO # 0.1 10^3/uL (0.0-0.2); BASO % 0.9 % (0.0-1.0); EOS # 0.3 10^3/uL (0.0-0.5); EOS % 2.7 % (0.0-3.0); HEMATOCRIT 32.8 % (42.0-52.0); HEMOGLOBIN 10.2 g/dl (13.5-17.5); LYMPH # 1.4 10^3/uL (1.5-5.0); LYMPH % 11.7 % (24.0-44.0); MEAN CORPUSCULAR HEMOGLOBIN 29.6 pg (27.0-33.0); MEAN CORPUSCULAR HGB CONC 31.1 g/dl (32.0-36.5); MEAN CORPUSCULAR VOLUME 95.1 fl (80.0-96.0); MONO % 8.8 % (2.0-8.0); NEUTROPHILS # 8.4 10^3/uL (1.5-8.5); NEUTROPHILS % 71.2 % (36.0-66.0); PLATELET COUNT, AUTOMATED 387 10^3/uL (150-450); RED BLOOD COUNT 3.45 10^6/uL (4.30-6.10); WHITE BLOOD COUNT 11.8 10^3/uL (4.0-10.0)
[2023-01-12 12:16] LABS: BLOOD UREA NITROGEN 5 MG/DL (9-23); C REACTIVE PROTEIN QUANTITATIV 3.3 MG/DL (<1.0); CALCIUM LEVEL 7.4 MG/DL (8.3-10.6); CARBON DIOXIDE LEVEL 20 MMOL/L (20-31); CHLORIDE LEVEL 111 MMOL/L (98-107); GLOMERULAR FILTRATION RATE > 60.0 (>49); GLUCOSE, FASTING 217 MG/DL (74-106); POTASSIUM SERUM 4.5 MMOL/L (3.5-5.1); SODIUM LEVEL 141 MMOL/L (136-145)
[2023-01-12 12:22] LABS: PROCALCITONIN 0.54 ng/ml
[2023-01-12] MEDS: LACTOBACILLUS ACIDOPHILUS CAP (BACID) PO SCH ×2 (12:49→17:08)
[2023-01-12 14:00] VITALS: BP 115/63; TEMP 97.9; O2SAT 98
[2023-01-12 19:35] VITALS: BP 116/70; TEMP 98.6; O2SAT 71; O2SAT 91
[2023-01-12] MEDS: LEVEMIR (INSULIN DETEMIR) 1 UNITS/0.01ML SC SCH (21:53)
[2023-01-12] MEDS: THIAMINE 100 MG TAB PO SCH (21:54)
[2023-01-12] MEDS: EZETIMIBE 10MG TABLET (ZETIA) PO SCH (21:54)
[2023-01-12] MEDS: ATORVASTATIN 20 MG TAB PO SCH (21:54)
[2023-01-12] MEDS: BACTRIM 160MG/800MG DS TAB PO SCH (21:54)
[2023-01-12] MEDS: DIVALPROEX 500MG *ER* TAB PO SCH (21:54)
[2023-01-12] MEDS: HYDROMORPHONE HCL 0.5 MG/ 0.5 ML SYRINGE IV PRN (22:15)
[2023-01-13 05:10] VITALS: BP 114/53; TEMP 97.9; O2SAT 92
[2023-01-13] MEDS: HYDROMORPHONE HCL 0.5 MG/ 0.5 ML SYRINGE IV PRN ×2 (06:30→10:30)
[2023-01-13] MEDS: LACTOBACILLUS ACIDOPHILUS CAP (BACID) PO SCH ×3 (10:18→17:31)
[2023-01-13] MEDS: BACTRIM 160MG/800MG DS TAB PO SCH ×2 (10:18→20:58)
[2023-01-13] MEDS: ASPIRIN 81MG CHEW TABLET PO SCH (10:18)
[2023-01-13] MEDS: INSULIN LISPRO (NovoLOG) PER UNIT SC SCH ×4 (10:18→20:59)
[2023-01-13] MEDS: CLOPIDOGREL 75 MG TAB PO SCH (10:18)
[2023-01-13] MEDS: MULTIVITAMINS/MINERALS THERAP 1 TAB PO SCH (10:18)
[2023-01-13] MEDS: MICONAZOLE 2 % POWDER (DESENEX) TOP SCH ×2 (10:19→21:00)
[2023-01-13] MEDS: NS 1,000 ML IV SCH (10:19)
[2023-01-13 14:00] VITALS: BP 111/55; TEMP 98.8; O2SAT 94
[2023-01-13 19:54] VITALS: BP 139/69; TEMP 98.8; O2SAT 97
[2023-01-13] MEDS: EZETIMIBE 10MG TABLET (ZETIA) PO SCH (20:57)
[2023-01-13] MEDS: THIAMINE 100 MG TAB PO SCH (20:57)
[2023-01-13] MEDS: LEVEMIR (INSULIN DETEMIR) 1 UNITS/0.01ML SC SCH (20:58)
[2023-01-13] MEDS: DIVALPROEX 500MG *ER* TAB PO SCH (20:58)
[2023-01-13] MEDS: ATORVASTATIN 20 MG TAB PO SCH (20:58)
[2023-01-14] MEDS: NS 1,000 ML IV SCH ×3 (03:02→14:55)
[2023-01-14 05:26] VITALS: BP 127/64; TEMP 98.8; O2SAT 93
[2023-01-14 05:52] LABS: BASO # 0.1 10^3/uL (0.0-0.2); BASO % 0.6 % (0.0-1.0); EOS # 0.2 10^3/uL (0.0-0.5); EOS % 1.6 % (0.0-3.0); HEMATOCRIT 33.7 % (42.0-52.0); HEMOGLOBIN 10.7 g/dl (13.5-17.5); LYMPH # 1.4 10^3/uL (1.5-5.0); MEAN CORPUSCULAR HEMOGLOBIN 29.5 pg (27.0-33.0); MEAN CORPUSCULAR HGB CONC 31.8 g/dl (32.0-36.5); MEAN CORPUSCULAR VOLUME 92.8 fl (80.0-96.0); MONO # 1.2 10^3/uL (0.0-0.8); MONO % 8.9 % (2.0-8.0); NEUTROPHILS # 9.6 10^3/uL (1.5-8.5); NEUTROPHILS % 73.2 % (36.0-66.0); PLATELET COUNT, AUTOMATED 455 10^3/uL (150-450); RED BLOOD COUNT 3.63 10^6/uL (4.30-6.10); WHITE BLOOD COUNT 13.1 10^3/uL (4.0-10.0)
[2023-01-14 06:20] LABS: ALBUMIN 1.9 G/DL (3.2-5.2); ALKALINE PHOSPHATASE 109 U/L (46-116); ALT/SGPT 61 U/L (7.0-40); AST/SGOT 43 U/L (<34); BILIRUBIN,TOTAL < 0.2 MG/DL (0.3-1.2); BLOOD UREA NITROGEN 6 MG/DL (9-23); CALCIUM LEVEL 8.4 MG/DL (8.3-10.6); CARBON DIOXIDE LEVEL 23 MMOL/L (20-31); CHLORIDE LEVEL 110 MMOL/L (98-107); GLOMERULAR FILTRATION RATE > 60.0 (>49); GLUCOSE, FASTING 215 MG/DL (74-106); MAGNESIUM LEVEL 1.9 MG/DL (1.8-2.4); POTASSIUM SERUM 5.3 MMOL/L (3.5-5.1); SODIUM LEVEL 140 MMOL/L (136-145); TOTAL PROTEIN 5.6 G/DL (5.7-8.2)
[2023-01-14] MEDS: LACTOBACILLUS ACIDOPHILUS CAP (BACID) PO SCH ×3 (08:13→17:08)
[2023-01-14] MEDS: BACTRIM 160MG/800MG DS TAB PO SCH ×2 (08:13→20:59)
[2023-01-14] MEDS: MULTIVITAMINS/MINERALS THERAP 1 TAB PO SCH (08:13)
[2023-01-14] MEDS: ASPIRIN 81MG CHEW TABLET PO SCH (08:13)
[2023-01-14] MEDS: INSULIN LISPRO (NovoLOG) PER UNIT SC SCH ×4 (08:13→21:00)
[2023-01-14] MEDS: CLOPIDOGREL 75 MG TAB PO SCH (08:13)
[2023-01-14] MEDS: MICONAZOLE 2 % POWDER (DESENEX) TOP SCH ×2 (08:25→21:05)
[2023-01-14 14:00] VITALS: BP 122/59; TEMP 98.4; O2SAT 99
[2023-01-14 20:43] VITALS: BP 133/66; TEMP 98.6; O2SAT 96
[2023-01-14] MEDS: THIAMINE 100 MG TAB PO SCH (20:59)
[2023-01-14] MEDS: ATORVASTATIN 20 MG TAB PO SCH (20:59)
[2023-01-14] MEDS: DIVALPROEX 500MG *ER* TAB PO SCH (21:00)
[2023-01-14] MEDS: EZETIMIBE 10MG TABLET (ZETIA) PO SCH (21:00)
[2023-01-14] MEDS: LEVEMIR (INSULIN DETEMIR) 1 UNITS/0.01ML SC SCH (21:01)
[2023-01-15] MEDS: NS 1,000 ML IV SCH (04:10)
[2023-01-15 05:42] LABS: BASO # 0.1 10^3/uL (0.0-0.2); BASO % 0.7 % (0.0-1.0); EOS # 0.4 10^3/uL (0.0-0.5); EOS % 3.6 % (0.0-3.0); HEMATOCRIT 32.2 % (42.0-52.0); HEMOGLOBIN 10.2 g/dl (13.5-17.5); LYMPH # 1.5 10^3/uL (1.5-5.0); LYMPH % 14.6 % (24.0-44.0); MEAN CORPUSCULAR HEMOGLOBIN 29.4 pg (27.0-33.0); MEAN CORPUSCULAR HGB CONC 31.7 g/dl (32.0-36.5); MEAN CORPUSCULAR VOLUME 92.8 fl (80.0-96.0); MONO % 9.2 % (2.0-8.0); NEUTROPHILS # 7.2 10^3/uL (1.5-8.5); NEUTROPHILS % 68.8 % (36.0-66.0); PLATELET COUNT, AUTOMATED 464 10^3/uL (150-450); RED BLOOD COUNT 3.47 10^6/uL (4.30-6.10); WHITE BLOOD COUNT 10.4 10^3/uL (4.0-10.0)
[2023-01-15 06:08] LABS: ALBUMIN 1.8 G/DL (3.2-5.2); ALKALINE PHOSPHATASE 86 U/L (46-116); ALT/SGPT 46 U/L (7.0-40); AST/SGOT 20 U/L (<34); BILIRUBIN,TOTAL < 0.2 MG/DL (0.3-1.2); BLOOD UREA NITROGEN < 5 MG/DL (9-23); CARBON DIOXIDE LEVEL 22 MMOL/L (20-31); CHLORIDE LEVEL 113 MMOL/L (98-107); CREATININE FOR GFR 0.59 MG/DL (0.70-1.30); GLOMERULAR FILTRATION RATE > 60.0 (>49); GLUCOSE, FASTING 134 MG/DL (74-106); MAGNESIUM LEVEL 1.7 MG/DL (1.8-2.4); POTASSIUM SERUM 4.8 MMOL/L (3.5-5.1); SODIUM LEVEL 142 MMOL/L (136-145); TOTAL PROTEIN 5.4 G/DL (5.7-8.2)
[2023-01-15 06:14] VITALS: BP 130/66; TEMP 97.3; O2SAT 97
[2023-01-15] MEDS ORDERED: MAGNESIUM OXIDE 400MG TAB (MAG-OX) PO ONE (06:55)
[2023-01-15] MEDS: INSULIN LISPRO (NovoLOG) PER UNIT SC SCH ×4 (07:30→22:36)
[2023-01-15] MEDS: MICONAZOLE 2 % POWDER (DESENEX) TOP SCH ×2 (09:29→22:35)
[2023-01-15] MEDS: BACTRIM 160MG/800MG DS TAB PO SCH ×2 (09:29→22:36)
[2023-01-15] MEDS: LACTOBACILLUS ACIDOPHILUS CAP (BACID) PO SCH ×3 (09:29→17:39)
[2023-01-15] MEDS: CLOPIDOGREL 75 MG TAB PO SCH (09:29)
[2023-01-15] MEDS: ASPIRIN 81MG CHEW TABLET PO SCH (09:29)
[2023-01-15] MEDS: MULTIVITAMINS/MINERALS THERAP 1 TAB PO SCH (09:29)
[2023-01-15 14:00] VITALS: BP 127/66; TEMP 98.8; O2SAT 97
[2023-01-15 19:45] VITALS: BP 125/65; TEMP 98.6; O2SAT 97
[2023-01-15] MEDS: EZETIMIBE 10MG TABLET (ZETIA) PO SCH (22:34)
[2023-01-15] MEDS: ATORVASTATIN 20 MG TAB PO SCH (22:34)
[2023-01-15] MEDS: THIAMINE 100 MG TAB PO SCH (22:34)
[2023-01-15] MEDS: LEVEMIR (INSULIN DETEMIR) 1 UNITS/0.01ML SC SCH (22:35)
[2023-01-15] MEDS: DIVALPROEX 500MG *ER* TAB PO SCH (22:36)
[2023-01-16 06:00] VITALS: BP 104/60; TEMP 98.6; O2SAT 96
[2023-01-16 07:25] LABS: BASO # 0.1 10^3/uL (0.0-0.2); BASO % 0.9 % (0.0-1.0); EOS # 0.4 10^3/uL (0.0-0.5); EOS % 4.3 % (0.0-3.0); HEMATOCRIT 37.1 % (42.0-52.0); HEMOGLOBIN 11.5 g/dl (13.5-17.5); LYMPH # 1.5 10^3/uL (1.5-5.0); LYMPH % 15.9 % (24.0-44.0); MEAN CORPUSCULAR HEMOGLOBIN 28.9 pg (27.0-33.0); MEAN CORPUSCULAR VOLUME 93.2 fl (80.0-96.0); MONO # 0.9 10^3/uL (0.0-0.8); MONO % 9.7 % (2.0-8.0); NEUTROPHILS # 6.2 10^3/uL (1.5-8.5); NEUTROPHILS % 66.3 % (36.0-66.0); PLATELET COUNT, AUTOMATED 540 10^3/uL (150-450); RED BLOOD COUNT 3.98 10^6/uL (4.30-6.10); WHITE BLOOD COUNT 9.3 10^3/uL (4.0-10.0)
[2023-01-16 07:41] LABS: ALBUMIN 2.1 G/DL (3.2-5.2); ALKALINE PHOSPHATASE 96 U/L (46-116); ALT/SGPT 47 U/L (7.0-40); AST/SGOT 21 U/L (<34); BILIRUBIN,TOTAL 0.2 MG/DL (0.3-1.2); BLOOD UREA NITROGEN 5 MG/DL (9-23); CALCIUM LEVEL 8.8 MG/DL (8.3-10.6); CARBON DIOXIDE LEVEL 25 MMOL/L (20-31); CHLORIDE LEVEL 110 MMOL/L (98-107); GLOMERULAR FILTRATION RATE > 60.0 (>49); GLUCOSE, FASTING 129 MG/DL (74-106); MAGNESIUM LEVEL 1.8 MG/DL (1.8-2.4); POTASSIUM SERUM 5.3 MMOL/L (3.5-5.1); SODIUM LEVEL 141 MMOL/L (136-145)
[2023-01-16] MEDS: CLOPIDOGREL 75 MG TAB PO SCH (08:20)
[2023-01-16] MEDS: ASPIRIN 81MG CHEW TABLET PO SCH (08:21)
[2023-01-16] MEDS: MULTIVITAMINS/MINERALS THERAP 1 TAB PO SCH (08:21)
[2023-01-16] MEDS: BACTRIM 160MG/800MG DS TAB PO SCH ×2 (08:21→20:35)
[2023-01-16] MEDS: LACTOBACILLUS ACIDOPHILUS CAP (BACID) PO SCH ×3 (08:21→17:15)
[2023-01-16] MEDS: INSULIN LISPRO (NovoLOG) PER UNIT SC SCH ×4 (08:22→20:38)
[2023-01-16] MEDS: MICONAZOLE 2 % POWDER (DESENEX) TOP SCH ×2 (10:28→20:37)
[2023-01-16 14:00] VITALS: BP 102/60; TEMP 98.4; O2SAT 98
[2023-01-16] MEDS: ATORVASTATIN 20 MG TAB PO SCH (20:35)
[2023-01-16] MEDS: EZETIMIBE 10MG TABLET (ZETIA) PO SCH (20:35)
[2023-01-16] MEDS: DIVALPROEX 500MG *ER* TAB PO SCH (20:35)
[2023-01-16] MEDS: THIAMINE 100 MG TAB PO SCH (20:36)
[2023-01-16] MEDS: LEVEMIR (INSULIN DETEMIR) 1 UNITS/0.01ML SC SCH (20:37)
[2023-01-16 21:39] VITALS: BP 121/62; TEMP 98.6; O2SAT 95
[2023-01-17 06:00] VITALS: BP 115/62; TEMP 98.4; O2SAT 95
[2023-01-17 07:02] LABS: BASO # 0.1 10^3/uL (0.0-0.2); BASO % 0.5 % (0.0-1.0); EOS # 0.4 10^3/uL (0.0-0.5); EOS % 3.6 % (0.0-3.0); HEMATOCRIT 33.5 % (42.0-52.0); HEMOGLOBIN 10.8 g/dl (13.5-17.5); LYMPH # 1.3 10^3/uL (1.5-5.0); LYMPH % 12.5 % (24.0-44.0); MEAN CORPUSCULAR HEMOGLOBIN 29.4 pg (27.0-33.0); MEAN CORPUSCULAR HGB CONC 32.2 g/dl (32.0-36.5); MEAN CORPUSCULAR VOLUME 91.3 fl (80.0-96.0); MONO % 8.8 % (2.0-8.0); NEUTROPHILS # 7.8 10^3/uL (1.5-8.5); NEUTROPHILS % 72.4 % (36.0-66.0); PLATELET COUNT, AUTOMATED 572 10^3/uL (150-450); RED BLOOD COUNT 3.67 10^6/uL (4.30-6.10); WHITE BLOOD COUNT 10.8 10^3/uL (4.0-10.0)
[2023-01-17 07:32] LABS: ALBUMIN 2.1 G/DL (3.2-5.2); ALKALINE PHOSPHATASE 95 U/L (46-116); ALT/SGPT 35 U/L (7.0-40); AST/SGOT 13 U/L (<34); BILIRUBIN,TOTAL < 0.2 MG/DL (0.3-1.2); BLOOD UREA NITROGEN 12 MG/DL (9-23); CALCIUM LEVEL 8.9 MG/DL (8.3-10.6); CARBON DIOXIDE LEVEL 22 MMOL/L (20-31); CHLORIDE LEVEL 108 MMOL/L (98-107); GLOMERULAR FILTRATION RATE > 60.0 (>49); GLUCOSE, FASTING 209 MG/DL (74-106); MAGNESIUM LEVEL 1.8 MG/DL (1.8-2.4); POTASSIUM SERUM 5.4 MMOL/L (3.5-5.1); SODIUM LEVEL 137 MMOL/L (136-145); TOTAL PROTEIN 5.9 G/DL (5.7-8.2)
[2023-01-17] MEDS: ASPIRIN 81MG CHEW TABLET PO SCH (08:44)
[2023-01-17] MEDS: MULTIVITAMINS/MINERALS THERAP 1 TAB PO SCH (08:45)
[2023-01-17] MEDS: LACTOBACILLUS ACIDOPHILUS CAP (BACID) PO SCH ×3 (08:45→17:14)
[2023-01-17] MEDS: CLOPIDOGREL 75 MG TAB PO SCH (08:45)
[2023-01-17] MEDS: MICONAZOLE 2 % POWDER (DESENEX) TOP SCH ×2 (08:45→21:06)
[2023-01-17] MEDS: INSULIN LISPRO (NovoLOG) PER UNIT SC SCH ×4 (08:45→21:06)
[2023-01-17] MEDS: BACTRIM 160MG/800MG DS TAB PO SCH ×2 (08:45→21:07)
[2023-01-17] MEDS: LEVEMIR (INSULIN DETEMIR) 1 UNITS/0.01ML SC SCH (21:06)
[2023-01-17] MEDS: THIAMINE 100 MG TAB PO SCH (21:07)
[2023-01-17] MEDS: DIVALPROEX 500MG *ER* TAB PO SCH (21:07)
[2023-01-17] MEDS: EZETIMIBE 10MG TABLET (ZETIA) PO SCH (21:07)
[2023-01-17] MEDS: ATORVASTATIN 20 MG TAB PO SCH (21:07)
[2023-01-17 21:17] VITALS: BP 123/64; TEMP 98.6; O2SAT 96
[2023-01-18 06:00] VITALS: BP 107/58; TEMP 98.1; O2SAT 95
[2023-01-18 06:16] LABS: BASO # 0.1 10^3/uL (0.0-0.2); BASO % 0.9 % (0.0-1.0); EOS # 0.4 10^3/uL (0.0-0.5); EOS % 3.9 % (0.0-3.0); HEMOGLOBIN 11.5 g/dl (13.5-17.5); LYMPH # 1.3 10^3/uL (1.5-5.0); LYMPH % 13.8 % (24.0-44.0); MEAN CORPUSCULAR HGB CONC 32.9 g/dl (32.0-36.5); MEAN CORPUSCULAR VOLUME 91.4 fl (80.0-96.0); MONO # 0.9 10^3/uL (0.0-0.8); MONO % 9.4 % (2.0-8.0); NEUTROPHILS # 6.6 10^3/uL (1.5-8.5); NEUTROPHILS % 70.4 % (36.0-66.0); PLATELET COUNT, AUTOMATED 615 10^3/uL (150-450); RED BLOOD COUNT 3.83 10^6/uL (4.30-6.10); WHITE BLOOD COUNT 9.4 10^3/uL (4.0-10.0)
[2023-01-18 06:48] LABS: ALBUMIN 2.3 G/DL (3.2-5.2); ALKALINE PHOSPHATASE 93 U/L (46-116); ALT/SGPT 32 U/L (7.0-40); AST/SGOT 12 U/L (<34); BILIRUBIN,TOTAL 0.2 MG/DL (0.3-1.2); BLOOD UREA NITROGEN 12 MG/DL (9-23); CALCIUM LEVEL 8.9 MG/DL (8.3-10.6); CARBON DIOXIDE LEVEL 23 MMOL/L (20-31); CHLORIDE LEVEL 107 MMOL/L (98-107); CREATININE FOR GFR 0.73 MG/DL (0.70-1.30); GLOMERULAR FILTRATION RATE > 60.0 (>49); GLUCOSE, FASTING 177 MG/DL (74-106); MAGNESIUM LEVEL 1.8 MG/DL (1.8-2.4); POTASSIUM SERUM 5.4 MMOL/L (3.5-5.1); SODIUM LEVEL 138 MMOL/L (136-145); TOTAL PROTEIN 6.4 G/DL (5.7-8.2)
[2023-01-18] MEDS ORDERED: ALBUTEROL SULFATE 2.5MG/0.5ML INH NEB SOLN NEB STA (08:13)
[2023-01-18] MEDS: INSULIN LISPRO (NovoLOG) PER UNIT SC SCH ×4 (08:49→20:41)
[2023-01-18] MEDS: ASPIRIN 81MG CHEW TABLET PO SCH (08:49)
[2023-01-18] MEDS: MULTIVITAMINS/MINERALS THERAP 1 TAB PO SCH (08:49)
[2023-01-18] MEDS: LACTOBACILLUS ACIDOPHILUS CAP (BACID) PO SCH ×3 (08:49→18:01)
[2023-01-18] MEDS: CLOPIDOGREL 75 MG TAB PO SCH (08:49)
[2023-01-18] MEDS: MICONAZOLE 2 % POWDER (DESENEX) TOP SCH ×2 (08:50→20:41)
[2023-01-18] MEDS ORDERED: SOD POLYSTYRENE SULFONATE SUSP 15GM 60ML UD PO ONE (09:00)
[2023-01-18 14:00] VITALS: BP 108/64; TEMP 99; O2SAT 96
[2023-01-18 16:04] LABS: BLOOD UREA NITROGEN 17 MG/DL (9-23); CALCIUM LEVEL 8.9 MG/DL (8.3-10.6); CARBON DIOXIDE LEVEL 21 MMOL/L (20-31); CHLORIDE LEVEL 105 MMOL/L (98-107); CREATININE FOR GFR 0.88 MG/DL (0.70-1.30); GLOMERULAR FILTRATION RATE > 60.0 (>49); GLUCOSE, FASTING 424 MG/DL (74-106); POTASSIUM SERUM 4.7 MMOL/L (3.5-5.1); SODIUM LEVEL 138 MMOL/L (136-145)
[2023-01-18] MEDS ORDERED: HumuLIN R (REGULAR) INSULIN (NovoLIN R) **100U/ML** PER UNIT IV STA ×2 (16:09→18:31)
[2023-01-18] MEDS: THIAMINE 100 MG TAB PO SCH (20:39)
[2023-01-18] MEDS: ATORVASTATIN 20 MG TAB PO SCH (20:39)
[2023-01-18] MEDS: DIVALPROEX 500MG *ER* TAB PO SCH (20:40)
[2023-01-18] MEDS: LEVEMIR (INSULIN DETEMIR) 1 UNITS/0.01ML SC SCH (20:40)
[2023-01-18] MEDS: EZETIMIBE 10MG TABLET (ZETIA) PO SCH (20:40)
[2023-01-18 22:00] VITALS: BP 105/62; TEMP 98.8; O2SAT 97
[2023-01-19 06:00] VITALS: BP 119/68; TEMP 98.4; O2SAT 95
[2023-01-19 06:32] LABS: BASO # 0.1 10^3/uL (0.0-0.2); BASO % 0.7 % (0.0-1.0); EOS # 0.4 10^3/uL (0.0-0.5); HEMATOCRIT 35.3 % (42.0-52.0); HEMOGLOBIN 11.2 g/dl (13.5-17.5); LYMPH # 1.6 10^3/uL (1.5-5.0); LYMPH % 16.4 % (24.0-44.0); MEAN CORPUSCULAR HEMOGLOBIN 29.5 pg (27.0-33.0); MEAN CORPUSCULAR HGB CONC 31.7 g/dl (32.0-36.5); MEAN CORPUSCULAR VOLUME 92.9 fl (80.0-96.0); MONO # 0.9 10^3/uL (0.0-0.8); MONO % 9.1 % (2.0-8.0); NEUTROPHILS # 6.7 10^3/uL (1.5-8.5); NEUTROPHILS % 68.8 % (36.0-66.0); PLATELET COUNT, AUTOMATED 599 10^3/uL (150-450); WHITE BLOOD COUNT 9.7 10^3/uL (4.0-10.0)
[2023-01-19 06:55] LABS: ALBUMIN 2.1 G/DL (3.2-5.2); ALKALINE PHOSPHATASE 84 U/L (46-116); ALT/SGPT 32 U/L (7.0-40); AST/SGOT 20 U/L (<34); BILIRUBIN,TOTAL 0.2 MG/DL (0.3-1.2); BLOOD UREA NITROGEN 11 MG/DL (9-23); CALCIUM LEVEL 8.5 MG/DL (8.3-10.6); CARBON DIOXIDE LEVEL 27 MMOL/L (20-31); CHLORIDE LEVEL 107 MMOL/L (98-107); CREATININE FOR GFR 0.74 MG/DL (0.70-1.30); GLOMERULAR FILTRATION RATE > 60.0 (>49); GLUCOSE, FASTING 113 MG/DL (74-106); MAGNESIUM LEVEL 1.9 MG/DL (1.8-2.4); POTASSIUM SERUM 4.5 MMOL/L (3.5-5.1); SODIUM LEVEL 141 MMOL/L (136-145)
[2023-01-19] MEDS: LACTOBACILLUS ACIDOPHILUS CAP (BACID) PO SCH ×3 (07:50→17:11)
[2023-01-19] MEDS: ASPIRIN 81MG CHEW TABLET PO SCH (07:51)
[2023-01-19] MEDS: INSULIN LISPRO (NovoLOG) PER UNIT SC SCH ×4 (07:51→22:50)
[2023-01-19] MEDS: CLOPIDOGREL 75 MG TAB PO SCH (07:51)
[2023-01-19] MEDS: MULTIVITAMINS/MINERALS THERAP 1 TAB PO SCH (07:51)
[2023-01-19] MEDS: MICONAZOLE 2 % POWDER (DESENEX) TOP SCH ×2 (09:19→22:50)
[2023-01-19 14:00] VITALS: BP 117/69; TEMP 98.6; O2SAT 98
[2023-01-19] MEDS: THIAMINE 100 MG TAB PO SCH (20:32)
[2023-01-19] MEDS: ATORVASTATIN 20 MG TAB PO SCH (20:32)
[2023-01-19] MEDS: EZETIMIBE 10MG TABLET (ZETIA) PO SCH (20:32)
[2023-01-19] MEDS: DIVALPROEX 500MG *ER* TAB PO SCH (20:33)
[2023-01-19 21:45] VITALS: BP 127/68; TEMP 98.1; O2SAT 97
[2023-01-19] MEDS: LEVEMIR (INSULIN DETEMIR) 1 UNITS/0.01ML SC SCH (22:51)
[2023-01-20 05:51] VITALS: BP 127/66; TEMP 97.9; O2SAT 96
[2023-01-20 07:02] LABS: BASO # 0.1 10^3/uL (0.0-0.2); BASO % 0.6 % (0.0-1.0); EOS # 0.4 10^3/uL (0.0-0.5); HEMOGLOBIN 11.6 g/dl (13.5-17.5); LYMPH # 1.5 10^3/uL (1.5-5.0); LYMPH % 17.4 % (24.0-44.0); MEAN CORPUSCULAR HEMOGLOBIN 29.5 pg (27.0-33.0); MEAN CORPUSCULAR HGB CONC 31.4 g/dl (32.0-36.5); MEAN CORPUSCULAR VOLUME 94.1 fl (80.0-96.0); MONO # 0.8 10^3/uL (0.0-0.8); MONO % 9.5 % (2.0-8.0); NEUTROPHILS # 5.9 10^3/uL (1.5-8.5); NEUTROPHILS % 67.9 % (36.0-66.0); PLATELET COUNT, AUTOMATED 601 10^3/uL (150-450); RED BLOOD COUNT 3.93 10^6/uL (4.30-6.10); WHITE BLOOD COUNT 8.7 10^3/uL (4.0-10.0)
[2023-01-20 07:28] LABS: ALBUMIN 2.3 G/DL (3.2-5.2); ALKALINE PHOSPHATASE 84 U/L (46-116); ALT/SGPT 41 U/L (7.0-40); AST/SGOT 26 U/L (<34); BILIRUBIN,TOTAL 0.2 MG/DL (0.3-1.2); BLOOD UREA NITROGEN 10 MG/DL (9-23); CALCIUM LEVEL 8.7 MG/DL (8.3-10.6); CARBON DIOXIDE LEVEL 27 MMOL/L (20-31); CHLORIDE LEVEL 106 MMOL/L (98-107); CREATININE FOR GFR 0.62 MG/DL (0.70-1.30); GLOMERULAR FILTRATION RATE > 60.0 (>49); GLUCOSE, FASTING 109 MG/DL (74-106); MAGNESIUM LEVEL 1.9 MG/DL (1.8-2.4); POTASSIUM SERUM 4.8 MMOL/L (3.5-5.1); SODIUM LEVEL 139 MMOL/L (136-145); TOTAL PROTEIN 6.4 G/DL (5.7-8.2)
[2023-01-20] MEDS ORDERED: BACT800T5 PO (07:38)
[2023-01-20] MEDS ORDERED: RISATAB3 PO (07:38)
[2023-01-20] MEDS: INSULIN LISPRO (NovoLOG) PER UNIT SC SCH ×2 (08:09→12:31)
[2023-01-20] MEDS: LACTOBACILLUS ACIDOPHILUS CAP (BACID) PO SCH ×2 (08:10→12:31)
[2023-01-20] MEDS: ASPIRIN 81MG CHEW TABLET PO SCH (08:11)
[2023-01-20] MEDS: CLOPIDOGREL 75 MG TAB PO SCH (08:11)
[2023-01-20] MEDS: MICONAZOLE 2 % POWDER (DESENEX) TOP SCH (08:12)
[2023-01-20] MEDS: MULTIVITAMINS/MINERALS THERAP 1 TAB PO SCH (08:12)
[2023-01-20] MEDS ORDERED: LEVEMIR (INSULIN DETEMIR) 1 UNITS/0.01ML SC SCH ×2 (09:00→21:00)
[2023-01-20] MEDS ORDERED: BACTRIM 160MG/800MG DS TAB PO SCH (09:00)
== END 2023-01-20 17:30 | disposition home health service (06) | DRG 854 ==
LOC: EDBD 21:50 → M ED 21:50 → M ED INP 23:53 → EEVIPCON 23:53 → M PCU 01-10 09:10 → M MS5PR 01-11 23:10
PROVIDERS: ADMIT Internal Medicine; ATTEND Internal Medicine
PROC: 0Y6T0Z0 Detachment at Right 3rd Toe, Complete, Open Approach (ICD-10-PCS; principal; 2023-01-10 11:15)
DX: A41.9 Sepsis, unspecified organism (principal); E11.52 Type 2 diabetes mellitus with diabetic peripheral angiopathy with gangrene; L97.419 Non-pressure chronic ulcer of right heel and midfoot with unspecified severity; L03.115 Cellulitis of right lower limb; E11.621 Type 2 diabetes mellitus with foot ulcer; E11.40 Type 2 diabetes mellitus with diabetic neuropathy, unspecified; I70.212 Atherosclerosis of native arteries of extremities with intermittent claudication, left leg; I10 Essential (primary) hypertension; F31.9 Bipolar disorder, unspecified; D41.4 Neoplasm of uncertain behavior of bladder; Z79.899 Other long term (current) drug therapy; Z79.82 Long term (current) use of aspirin; Z79.4 Long term (current) use of insulin; F03.90 Unspecified dementia, unspecified severity, without behavioral disturbance, psychotic disturbance, mood disturbance, and anxiety; I25.10 Atherosclerotic heart disease of native coronary artery without angina pectoris; Z86.73 Personal history of transient ischemic attack (TIA), and cerebral infarction without residual deficits; Z87.891 Personal history of nicotine dependence; Z95.2 Presence of prosthetic heart valve

== ENCOUNTER 2023-05-20 13:24 | Day surgery (SDC) | payer OTHER ==
[~2023-05-20] VITALS: Ht 172.7 cm; Wt 59.0 kg
[~2023-05-20 13:24] MED LIST changes: +BACT800T5 PO; +BUPR1TAB52 PO; +RISATAB3 PO; +ceFAZolin SOD 2 GM in IV 1 EA IV ONE
[2023-05-20 14:47] LABS: BLOOD UREA NITROGEN 30 MG/DL (9-23); CALCIUM LEVEL 9.4 MG/DL (8.3-10.6); CARBON DIOXIDE LEVEL 25 MMOL/L (20-31); CHLORIDE LEVEL 102 MMOL/L (98-107); GLOMERULAR FILTRATION RATE > 60.0 (>49); GLUCOSE, FASTING 141 MG/DL (74-106); POTASSIUM SERUM 4.8 MMOL/L (3.5-5.1); SODIUM LEVEL 137 MMOL/L (136-145)
[2023-05-20] MEDS ORDERED: ONDANSETRON 4MG 2ML VIAL As Ordered ONE (15:27)
[2023-05-20] MEDS ORDERED: MIDAZOLAM INJ 2MG/2ML VIAL As Ordered ONE (15:27)
[2023-05-20] MEDS ORDERED: fentaNYL 100 MCG/2 ML INJECTION As Ordered ONE (15:27)
[2023-05-20] MEDS ORDERED: LIDOCAINE 2% 100MG/5ML SDV (FOR ANES.) As Ordered ONE (15:27)
[2023-05-20] MEDS ORDERED: propofoL 200 MG/20 ML VIAL As Ordered ONE (15:27)
[2023-05-20] MEDS ORDERED: LIDOCAINE 1% SDV 30ML VIAL As Ordered ONE (15:30)
[2023-05-20] MEDS ORDERED: ACETAMINOPHEN 1000MG 100ML IV BAG As Ordered ONE (16:01)
[2023-05-20] MEDS ORDERED: PHENYLephrine 500MCG 5ML (100MCG/ML) SYRINGE As Ordered ONE (16:21)
[2023-05-20 17:25] VITALS: BP 104/61; TEMP 97.1; O2SAT 98
== END 2023-05-20 17:30 | disposition home or self-care (01) ==
LOC: M SDC 13:24
PROVIDERS: ATTEND Podiatrist Foot & Ankle Surgery
DX: T84.84XA Pain due to internal orthopedic prosthetic devices, implants and grafts, initial encounter (principal); T84.89XA Other specified complication of internal orthopedic prosthetic devices, implants and grafts, initial encounter; E11.9 Type 2 diabetes mellitus without complications; I25.10 Atherosclerotic heart disease of native coronary artery without angina pectoris; I10 Essential (primary) hypertension; E78.00 Pure hypercholesterolemia, unspecified; Z79.82 Long term (current) use of aspirin; Z79.899 Other long term (current) drug therapy; Z79.4 Long term (current) use of insulin; Z79.84 Long term (current) use of oral hypoglycemic drugs; Y79.2 Prosthetic and other implants, materials and accessory orthopedic devices associated with adverse incidents; Y92.9 Unspecified place or not applicable; Z86.73 Personal history of transient ischemic attack (TIA), and cerebral infarction without residual deficits; Z87.891 Personal history of nicotine dependence
CPT/HCPCS: 20680; 36415; 80048; J0131; J0665; J2250; J2371; J2405; J3010

== ENCOUNTER 2023-05-23 13:46 | Emergency (ER) | payer OTHER ==
[~2023-05-23] VITALS: Ht 167.6 cm; Wt 58.6 kg
[~2023-05-23 13:46] MED LIST changes: -ceFAZolin SOD 2 GM in IV 1 EA IV ONE
[2023-05-23] MEDS ORDERED: NS 1,000 ML IV ONE ×2 (14:20→15:40)
[2023-05-23 14:37] LABS: ABG BASE EXCESS -1.8 (-2.0-2.0); ABG O2 SATURATION 96.9 % (95.0-99.0); ABG PARTIAL PRESSURE O2 89.7 mmHg (75.0-100.0); ABG pH (ARTERIAL) 7.428 UNITS (7.350-7.450)
[2023-05-23] MEDS ORDERED: METOPROLOL TART 25 MG TABLET PO ONE (14:45)
[2023-05-23 14:48] LABS: BASO % 0.1 % (0.0-1.0); HEMOGLOBIN 11.6 g/dl (13.5-17.5); LYMPH # 0.9 10^3/uL (1.5-5.0); LYMPH % 5.7 % (24.0-44.0); MEAN CORPUSCULAR HEMOGLOBIN 26.3 pg (27.0-33.0); MEAN CORPUSCULAR HGB CONC 30.5 g/dl (32.0-36.5); MEAN CORPUSCULAR VOLUME 86.2 fl (80.0-96.0); MONO # 0.7 10^3/uL (0.0-0.8); MONO % 4.9 % (2.0-8.0); NEUTROPHILS # 13.2 10^3/uL (1.5-8.5); NEUTROPHILS % 88.4 % (36.0-66.0); PLATELET COUNT, AUTOMATED 430 10^3/uL (150-450); RED BLOOD COUNT 4.41 10^6/uL (4.30-6.10)
[2023-05-23 15:05] LABS: VALPROIC ACID (DEPAKOTE) 9.5 UG/ML (50.0-100.0)
[2023-05-23 15:06] LABS: ETHYL ALCOHOL (ETHANOL) < 0.003 % (0.000-0.010); SALICYLATE LEVEL < 3.0 MG/DL (<30)
[2023-05-23 15:07] LABS: ACETONE/KETONE 0.46 MMOL/L (0.02-0.27); ALBUMIN 2.2 G/DL (3.2-5.2); ALKALINE PHOSPHATASE 345 U/L (46-116); ALT/SGPT 328 U/L (7.0-40); AST/SGOT 931 U/L (<34); BILIRUBIN,DIRECT < 0.1 MG/DL (<0.4); BILIRUBIN,TOTAL 0.2 MG/DL (0.3-1.2); BLOOD UREA NITROGEN 66 MG/DL (9-23); CALCIUM LEVEL 9.6 MG/DL (8.3-10.6); CARBON DIOXIDE LEVEL 25 MMOL/L (20-31); CHLORIDE LEVEL 119 MMOL/L (98-107); CK-MB VALUE MASS 1.1 NG/ML (<3.6); CPK CREATINE PHOSPHOKINASE 159 U/L (46-171); CREATININE FOR GFR 0.88 MG/DL (0.70-1.30); GLOMERULAR FILTRATION RATE > 60.0 (>49); GLUCOSE, FASTING 314 MG/DL (74-106); MB/CK RELATIVE INDEX 0.69 (< OR =4); POTASSIUM SERUM 4.7 MMOL/L (3.5-5.1); SODIUM LEVEL 153 MMOL/L (136-145)
[2023-05-23 15:09] LABS: THYROID STIMULATING HORMONE 0.523 uIU/ML (0.55-4.78)
[2023-05-23] MEDS ORDERED: LORazepam 2 MG/ML 1ML VIAL IV STA ×2 (15:28→18:30)
[2023-05-23] MEDS ORDERED: LISI40TA4 PO (15:29)
[2023-05-23 15:44] LABS: LIPASE 35 U/L (12-53)
[2023-05-23] MEDS ORDERED: ISOVUE-370 76% 100ML VIAL As Ordered ONE (16:23)
[2023-05-23 17:12] LABS: HEPATITIS B CORE ANTIBODY IGM NEGATIVE (NEGATIVE); HEPATITIS C VIRUS ABY INDEX 0.02 INDEX (<0.8)
[2023-05-23 18:05] LABS: AMPHETAMINES LEVEL URINE NEGATIVE (NEGATIVE); BARBITURATES URINE NEGATIVE (NEGATIVE); BENZODIAZEPINES URINE NEGATIVE (NEGATIVE); COCAINE METABOLITE URINE NEGATIVE (NEGATIVE)
[2023-05-23 18:06] LABS: CANNABINOIDS URINE NEGATIVE (NEGATIVE); METHADONE URINE NEGATIVE (NEGATIVE); OPIATES URINE NEGATIVE (NEGATIVE); PHENCYCLIDINE URINE NEGATIVE (NEGATIVE)
[2023-05-23 21:16] LABS: INR 1.41; PARTIAL THROMBOPLASTIN TIME 27.9 SECONDS (24.8-34.2); PROTHROMBIN TIME 16.8 SECONDS (12.5-14.5)
[2023-05-24] MEDS ORDERED: HumuLIN R (REGULAR) INSULIN (NovoLIN R) **100U/ML** PER UNIT IV ONE (00:35)
[2023-05-24] MEDS ORDERED: CEFEPIME HCL 2 GM in D5W MINI-BAG PLUS 50 ML IV ONE (00:40)
[2023-05-24 06:05] VITALS: BP 121/72; TEMP 97.1; O2SAT 97
== END 2023-05-24 06:15 | disposition short-term general hospital (02) ==
LOC: M ED 13:46
DX: G93.40 Encephalopathy, unspecified (principal); R74.01 Elevation of levels of liver transaminase levels; E86.0 Dehydration; I44.4 Left anterior fascicular block; E11.9 Type 2 diabetes mellitus without complications; I10 Essential (primary) hypertension; F31.9 Bipolar disorder, unspecified; Z86.79 Personal history of other diseases of the circulatory system; Z79.01 Long term (current) use of anticoagulants; Z79.82 Long term (current) use of aspirin; Z79.02 Long term (current) use of antithrombotics/antiplatelets; Z79.811 Long term (current) use of aromatase inhibitors; Z79.4 Long term (current) use of insulin; Z79.899 Other long term (current) drug therapy
CPT/HCPCS: 36415; 36600; 70450; 71045; 71260; 74177; 80048; 80076; 80143; 80164; 80307; 81001; 82010; 82077; 82140; 82550; 82553; 82803; 83605; 83690; 84443; 84484; 85025; 85610; 85730; 86705; 86709; 86803; 87040; 87077; 87186; 87340; 87486; 87581; 87633; 87798; 93005; 93041; 94760; 96361; 96374; 96375; 99285; J0692; J1815; J2060; Q9967

== ENCOUNTER 2023-11-23 23:05 | Emergency (ER) | payer MEDICAID, MEDICARE, OTHER ==
[~2023-11-23 23:05] MED LIST changes: +VITA250T27 PO; -VITA250T4 PO
[2023-11-23 23:54] LABS: BASO % 0.4 % (0.0-1.0); EOS # 0.7 10^3/uL (0.0-0.5); EOS % 6.3 % (0.0-3.0); HEMATOCRIT 31.9 % (42.0-52.0); HEMOGLOBIN 8.9 g/dl (13.5-17.5); LYMPH # 2.1 10^3/uL (1.5-5.0); LYMPH % 20.2 % (24.0-44.0); MEAN CORPUSCULAR HEMOGLOBIN 21.1 pg (27.0-33.0); MEAN CORPUSCULAR HGB CONC 27.9 g/dl (32.0-36.5); MEAN CORPUSCULAR VOLUME 75.8 fl (80.0-96.0); MONO # 0.8 10^3/uL (0.0-0.8); MONO % 7.9 % (2.0-8.0); NEUTROPHILS # 6.7 10^3/uL (1.5-8.5); NEUTROPHILS % 64.9 % (36.0-66.0); PLATELET COUNT, AUTOMATED 477 10^3/uL (150-450); RED BLOOD COUNT 4.21 10^6/uL (4.30-6.10); WHITE BLOOD COUNT 10.3 10^3/uL (4.0-10.0)
[2023-11-24] MEDS ORDERED: NESI25TA PO (00:05)
[2023-11-24] MEDS ORDERED: FAMO20TA PO (00:06)
[2023-11-24 00:08] LABS: INR 1.15; PARTIAL THROMBOPLASTIN TIME 24.3 SECONDS (24.8-34.2); PROTHROMBIN TIME 14.3 SECONDS (12.5-14.5)
[2023-11-24] MEDS ORDERED: NOVOINJ SC (00:08)
[2023-11-24] MEDS ORDERED: MIRT-88 PO (00:12)
[2023-11-24] MEDS ORDERED: MIRA3350 PO (00:12)
[2023-11-24 00:32] LABS: BLOOD UREA NITROGEN 38 MG/DL (9-23); CALCIUM LEVEL 9.4 MG/DL (8.3-10.6); CARBON DIOXIDE LEVEL 23 MMOL/L (20-31); CHLORIDE LEVEL 107 MMOL/L (98-107); CREATININE FOR GFR 0.47 MG/DL (0.70-1.30); GLOMERULAR FILTRATION RATE > 60.0 (>42); GLUCOSE, FASTING 300 MG/DL (74-106); POTASSIUM SERUM 4.6 MMOL/L (3.5-5.1); SODIUM LEVEL 139 MMOL/L (136-145)
[2023-11-24] MEDS: OXYMETAZOLINE 0.05% NASAL SPRAY (AFRIN) ONE (00:51)
[2023-11-24 02:45] VITALS: BP 110/63
[2023-11-24 02:53] VITALS: TEMP 98; O2SAT 98
== END 2023-11-24 03:00 | disposition home or self-care (01) ==
LOC: EDBD 23:05 → M ED 23:05
DX: R04.0 Epistaxis (principal); I25.10 Atherosclerotic heart disease of native coronary artery without angina pectoris; E11.9 Type 2 diabetes mellitus without complications; F03.90 Unspecified dementia, unspecified severity, without behavioral disturbance, psychotic disturbance, mood disturbance, and anxiety; Z79.82 Long term (current) use of aspirin; Z79.4 Long term (current) use of insulin; Z79.899 Other long term (current) drug therapy; Z79.02 Long term (current) use of antithrombotics/antiplatelets

== ENCOUNTER → 2024-03-29 | Outpatient (REF) | payer OTHER ==
[~2024-03-29] MED LIST changes: +FAMO20TA PO; +MIRA3350 PO; +MIRT-88 PO; +NESI25TA PO; +NOVOINJ SC; +NYST1POW3 TOP; -NYST1POW9 TOP
== END ==
LOC: M LAB REF 16:32
PROVIDERS: ATTEND Podiatrist Foot & Ankle Surgery
DX: L03.116 Cellulitis of left lower limb (principal)

== ENCOUNTER 2024-04-07 09:38 | Inpatient (IN) | payer OTHER, MEDICARE, MEDICAID ==
[~2024-04-07] VITALS: Ht 172.7 cm; Wt 52.2 kg
[2024-04-07 11:30] VITALS: BP 114/66; TEMP 97; O2SAT 98
[2024-04-07] MEDS ORDERED: DEXTROSE 50% 50ML SYRINGE IV PRN (12:30)
[2024-04-07] MEDS ORDERED: GLUCAGON INJ 1MG VIAL SC PRN (12:30)
[2024-04-07] MEDS ORDERED: GLUCOSE 4 GM CHEW PO PRN (12:30)
[2024-04-07] MEDS ORDERED: MORPHINE 2 MG/ML 1ML VIAL IV PRN (12:50)
[2024-04-07 12:56] LABS: BASO # 0.1 10^3/uL (0.0-0.2); BASO % 0.2 % (0.0-1.0); EOS # 0.1 10^3/uL (0.0-0.5); EOS % 0.3 % (0.0-3.0); LYMPH # 1.9 10^3/uL (1.5-5.0); MEAN CORPUSCULAR HEMOGLOBIN 19.7 pg (27.0-33.0); MEAN CORPUSCULAR HGB CONC 27.4 g/dl (32.0-36.5); MEAN CORPUSCULAR VOLUME 71.9 fl (80.0-96.0); MONO % 7.3 % (2.0-8.0); NEUTROPHILS # 22.6 10^3/uL (1.5-8.5); PLATELET COUNT, AUTOMATED 769 10^3/uL (150-450); WHITE BLOOD COUNT 26.9 10^3/uL (4.0-10.0)
[2024-04-07] MEDS: LR 1,000 ML IV ONE (13:08)
[2024-04-07 13:15] LABS: HEMOGLOBIN 6.3 g/dl (13.5-17.5)
[2024-04-07 13:18] LABS: ALBUMIN 1.7 G/DL (3.2-5.2); ALKALINE PHOSPHATASE 152 U/L (40-129); ALT/SGPT 59 U/L (7.0-40); AST/SGOT 41 U/L (<34); BILIRUBIN,TOTAL < 0.2 MG/DL (0.3-1.2); BLOOD UREA NITROGEN 21 MG/DL (9-23); CALCIUM LEVEL 8.7 MG/DL (8.3-10.6); CARBON DIOXIDE LEVEL 24 MMOL/L (20-31); CHLORIDE LEVEL 103 MMOL/L (98-107); CREATININE FOR GFR 0.62 MG/DL (0.70-1.30); GLOMERULAR FILTRATION RATE > 60.0 (>42); GLUCOSE, FASTING 174 MG/DL (74-106); POTASSIUM SERUM 5.5 MMOL/L (3.5-5.1); SODIUM LEVEL 133 MMOL/L (136-145)
[2024-04-07] MEDS: ALBUTEROL SULFATE 2.5MG/0.5ML INH NEB SOLN NEB ONE (13:30)
[2024-04-07] MEDS: PIPERACILLIN/TAZOBACTAM SOD 3.375 GM in DEXTROSE 5% (D5W) ADV/MINI-BAG 50 ML IV SCH (14:00)
[2024-04-07] MEDS: DOXYCYCLINE HYCLATE 100MG TABLET PO ONE (14:00)
[2024-04-07] MEDS: PATIROMER SORBITEX CALCIUM 8.4 GM POWDER PACKET (VELTASSA) PO ONE (14:00)
[2024-04-07] MEDS: NS 1,000 ML IV ONE (14:30)
[2024-04-07] MEDS ORDERED: [UNRECOGNIZED DRUG - CODE] PO (15:04)
[2024-04-07] MEDS ORDERED: METF500T13 PO (15:04)
[2024-04-07] MEDS ORDERED: AMPI500C9 PO (15:04)
[2024-04-07] MEDS ORDERED: HOME MED LIST COMPLETE! XX SCH (15:05)
[2024-04-07] MEDS: VANCOMYCIN 1,000MG/200 ML IV BAG IV ONE (17:20)
[2024-04-07 18:15] VITALS: BP 114/67; TEMP 97.3; O2SAT 96
[2024-04-07 18:30] VITALS: BP 118/67; TEMP 98.3; O2SAT 96
[2024-04-07] MEDS: INSULIN LISPRO (NovoLOG) PER UNIT SC SCH ×2 (18:35→20:32)
[2024-04-07] MEDS: EZETIMIBE 10MG TABLET (ZETIA) PO SCH (20:26)
[2024-04-07] MEDS: DIVALPROEX 500MG *ER* TAB PO SCH (20:26)
[2024-04-07] MEDS: ATORVASTATIN 20 MG TAB PO SCH (20:26)
[2024-04-07] MEDS ORDERED: HEPARIN SOD (PORCINE) 5000UNITS/ML 1ML VIAL/SYRINGE SQ SCH (21:00)
[2024-04-07] MEDS: VANCOMYCIN 750MG/150 ML IV BAG IV SCH (21:27)
[2024-04-07 22:43] VITALS: BP 119/67; TEMP 98.8; O2SAT 95
[2024-04-07 22:56] VITALS: BP 116/66; TEMP 98.9; O2SAT 97
[2024-04-08] VITALS (10 sets, daily range): BP systolic 112–136; BP diastolic 66–92; TEMP 97.7–99; O2SAT 93–98
[2024-04-08 01:21] LABS: BASO # 0.1 10^3/uL (0.0-0.2); BASO % 0.2 % (0.0-1.0); EOS # 0.1 10^3/uL (0.0-0.5); EOS % 0.5 % (0.0-3.0); HEMATOCRIT 29.5 % (42.0-52.0); LYMPH # 1.7 10^3/uL (1.5-5.0); LYMPH % 7.2 % (24.0-44.0); MEAN CORPUSCULAR HGB CONC 31.9 g/dl (32.0-36.5); MEAN CORPUSCULAR VOLUME 75.3 fl (80.0-96.0); MONO # 2.1 10^3/uL (0.0-0.8); MONO % 8.9 % (2.0-8.0); NEUTROPHILS # 19.8 10^3/uL (1.5-8.5); NEUTROPHILS % 82.2 % (36.0-66.0); RED BLOOD COUNT 3.92 10^6/uL (4.30-6.10); WHITE BLOOD COUNT 24.1 10^3/uL (4.0-10.0)
[2024-04-08 01:29] LABS: HEMOGLOBIN 9.4 g/dl (13.5-17.5); PLATELET COUNT, AUTOMATED 628 10^3/uL (150-450)
[2024-04-08 01:52] LABS: BLOOD UREA NITROGEN 17 MG/DL (9-23); CALCIUM LEVEL 8.6 MG/DL (8.3-10.6); CARBON DIOXIDE LEVEL 21 MMOL/L (20-31); CHLORIDE LEVEL 111 MMOL/L (98-107); CREATININE FOR GFR 0.66 MG/DL (0.70-1.30); GLOMERULAR FILTRATION RATE > 60.0 (>42); GLUCOSE, FASTING 114 MG/DL (74-106); POTASSIUM SERUM 5.1 MMOL/L (3.5-5.1); SODIUM LEVEL 141 MMOL/L (136-145)
[2024-04-08 08:34] LABS: HEMATOCRIT 31.2 % (42.0-52.0); HEMOGLOBIN 9.8 g/dl (13.5-17.5); MEAN CORPUSCULAR HEMOGLOBIN 23.4 pg (27.0-33.0); MEAN CORPUSCULAR HGB CONC 31.4 g/dl (32.0-36.5); MEAN CORPUSCULAR VOLUME 74.6 fl (80.0-96.0); PLATELET COUNT, AUTOMATED 661 10^3/uL (150-450); RED BLOOD COUNT 4.18 10^6/uL (4.30-6.10); WHITE BLOOD COUNT 27.7 10^3/uL (4.0-10.0)
[2024-04-08] MEDS: NS 1,000 ML IV SCH (08:37)
[2024-04-08] MEDS: DONEPEZIL 5 MG TAB PO SCH (09:00)
[2024-04-08] MEDS: ASPIRIN 81MG ENTERIC TABLET PO SCH (09:00)
[2024-04-08 09:07] LABS: BLOOD UREA NITROGEN 16 MG/DL (9-23); CALCIUM LEVEL 8.8 MG/DL (8.3-10.6); CARBON DIOXIDE LEVEL 20 MMOL/L (20-31); CHLORIDE LEVEL 114 MMOL/L (98-107); CREATININE FOR GFR 0.59 MG/DL (0.70-1.30); GLOMERULAR FILTRATION RATE > 60.0 (>42); GLUCOSE, FASTING 101 MG/DL (74-106); POTASSIUM SERUM 4.9 MMOL/L (3.5-5.1); SODIUM LEVEL 145 MMOL/L (136-145)
[2024-04-08] MEDS ORDERED: LIDOCAINE 2% 100MG/5ML SDV (FOR ANES.) As Ordered ONE (11:46)
[2024-04-08] MEDS ORDERED: propofoL 200 MG/20 ML VIAL As Ordered ONE (11:46)
[2024-04-08] MEDS ORDERED: MIDAZOLAM INJ 2MG/2ML VIAL As Ordered ONE (11:46)
[2024-04-08] MEDS ORDERED: fentaNYL 100 MCG/2 ML INJECTION As Ordered ONE (11:47)
[2024-04-08] MEDS: LIDOCAINE 1% SDV 30ML VIAL As Ordered ONE (12:20)
[2024-04-08] MEDS ORDERED: ISOVUE-370 76% 100ML VIAL As Ordered ONE (13:15)
[2024-04-08 16:31] LABS: PERCENT SATURATION 2.7 % (19.7-50.0)
[2024-04-08 16:35] LABS: FERRITIN 60.9 NG/ML (10.5-307.3)
[2024-04-08 16:36] LABS: FOLATE 14.61 NG/ML (>5.4)
[2024-04-08 17:28] LABS: INR 1.43; PROTHROMBIN TIME 17.7 SECONDS (12.5-14.5)
[2024-04-08] MEDS: FLUCONAZOLE 100 MG TAB PO SCH (17:39)
[2024-04-08] MEDS: ACETAMINOPHEN 325 MG TAB PO PRN (20:08)
[2024-04-09 06:46] VITALS: BP 128/69; TEMP 98.6; O2SAT 96
[2024-04-09 06:47] LABS: BASO # 0.1 10^3/uL (0.0-0.2); BASO % 0.2 % (0.0-1.0); EOS # 0.1 10^3/uL (0.0-0.5); EOS % 0.4 % (0.0-3.0); HEMATOCRIT 28.9 % (42.0-52.0); HEMOGLOBIN 8.9 g/dl (13.5-17.5); LYMPH # 1.3 10^3/uL (1.5-5.0); LYMPH % 5.3 % (24.0-44.0); MEAN CORPUSCULAR HEMOGLOBIN 23.7 pg (27.0-33.0); MEAN CORPUSCULAR HGB CONC 30.8 g/dl (32.0-36.5); MEAN CORPUSCULAR VOLUME 76.9 fl (80.0-96.0); MONO # 1.3 10^3/uL (0.0-0.8); MONO % 5.4 % (2.0-8.0); NEUTROPHILS # 21.3 10^3/uL (1.5-8.5); NEUTROPHILS % 87.5 % (36.0-66.0); PLATELET COUNT, AUTOMATED 599 10^3/uL (150-450); RED BLOOD COUNT 3.76 10^6/uL (4.30-6.10); WHITE BLOOD COUNT 24.3 10^3/uL (4.0-10.0)
[2024-04-09 07:17] LABS: BLOOD UREA NITROGEN 12 MG/DL (9-23); CALCIUM LEVEL 8.1 MG/DL (8.3-10.6); CARBON DIOXIDE LEVEL 18 MMOL/L (20-31); CHLORIDE LEVEL 113 MMOL/L (98-107); CREATININE FOR GFR 0.53 MG/DL (0.70-1.30); GLOMERULAR FILTRATION RATE > 60.0 (>42); GLUCOSE, FASTING 193 MG/DL (74-106); POTASSIUM SERUM 4.3 MMOL/L (3.5-5.1); SODIUM LEVEL 141 MMOL/L (136-145)
[2024-04-09] MEDS: SODIUM BICARBONATE 325 MG TAB PO SCH (08:06)
[2024-04-09] MEDS: LR 1,000 ML IV SCH (10:21)
[2024-04-09 12:00] VITALS: BP 164/85; TEMP 98.1; O2SAT 97
[2024-04-09] MEDS: HEPARIN SOD (PORCINE) 5000UNITS/ML 1ML VIAL/SYRINGE SQ SCH (13:32)
[2024-04-09 19:34] VITALS: BP 158/85; TEMP 98.2; O2SAT 95
[2024-04-10 04:03] VITALS: BP 146/80; TEMP 98.2; O2SAT 94
[2024-04-10 08:21] LABS: BASO % 0.1 % (0.0-1.0); EOS # 0.2 10^3/uL (0.0-0.5); EOS % 0.9 % (0.0-3.0); HEMATOCRIT 29.9 % (42.0-52.0); LYMPH # 1.3 10^3/uL (1.5-5.0); LYMPH % 7.6 % (24.0-44.0); MEAN CORPUSCULAR HEMOGLOBIN 23.1 pg (27.0-33.0); MEAN CORPUSCULAR HGB CONC 30.1 g/dl (32.0-36.5); MEAN CORPUSCULAR VOLUME 76.7 fl (80.0-96.0); MONO # 1.2 10^3/uL (0.0-0.8); MONO % 6.9 % (2.0-8.0); NEUTROPHILS # 14.8 10^3/uL (1.5-8.5); NEUTROPHILS % 83.8 % (36.0-66.0); PLATELET COUNT, AUTOMATED 556 10^3/uL (150-450); WHITE BLOOD COUNT 17.6 10^3/uL (4.0-10.0)
[2024-04-10 08:45] LABS: BLOOD UREA NITROGEN 8 MG/DL (9-23); CALCIUM LEVEL 8.2 MG/DL (8.3-10.6); CARBON DIOXIDE LEVEL 20 MMOL/L (20-31); CHLORIDE LEVEL 109 MMOL/L (98-107); GLOMERULAR FILTRATION RATE > 60.0 (>42); GLUCOSE, FASTING 212 MG/DL (74-106); POTASSIUM SERUM 4.2 MMOL/L (3.5-5.1); SODIUM LEVEL 138 MMOL/L (136-145)
[2024-04-10 12:00] VITALS: BP 129/73; TEMP 97.9; O2SAT 96
[2024-04-10 19:21] VITALS: BP 131/70; TEMP 99; O2SAT 96
[2024-04-10] MEDS: LEVEMIR (INSULIN DETEMIR) 1 UNITS/0.01ML SC SCH (20:40)
[2024-04-11 03:42] VITALS: BP 120/62; TEMP 98.2; O2SAT 95
[2024-04-11 07:17] LABS: BASO % 0.1 % (0.0-1.0); EOS # 0.2 10^3/uL (0.0-0.5); EOS % 1.3 % (0.0-3.0); HEMATOCRIT 29.8 % (42.0-52.0); HEMOGLOBIN 8.7 g/dl (13.5-17.5); LYMPH # 1.4 10^3/uL (1.5-5.0); LYMPH % 9.6 % (24.0-44.0); MEAN CORPUSCULAR HEMOGLOBIN 22.8 pg (27.0-33.0); MEAN CORPUSCULAR HGB CONC 29.2 g/dl (32.0-36.5); MEAN CORPUSCULAR VOLUME 78.2 fl (80.0-96.0); MONO % 6.9 % (2.0-8.0); NEUTROPHILS # 11.6 10^3/uL (1.5-8.5); NEUTROPHILS % 81.5 % (36.0-66.0); PLATELET COUNT, AUTOMATED 529 10^3/uL (150-450); RED BLOOD COUNT 3.81 10^6/uL (4.30-6.10); WHITE BLOOD COUNT 14.3 10^3/uL (4.0-10.0)
[2024-04-11 08:24] LABS: BLOOD UREA NITROGEN 8 MG/DL (9-23); CALCIUM LEVEL 8.2 MG/DL (8.3-10.6); CARBON DIOXIDE LEVEL 23 MMOL/L (20-31); CHLORIDE LEVEL 114 MMOL/L (98-107); GLOMERULAR FILTRATION RATE > 60.0 (>42); GLUCOSE, FASTING 168 MG/DL (74-106); POTASSIUM SERUM 4.3 MMOL/L (3.5-5.1); SODIUM LEVEL 144 MMOL/L (136-145)
[2024-04-11 11:48] VITALS: BP 137/73; TEMP 98.4; O2SAT 94
[2024-04-11] MEDS: PIPERACILLIN/TAZOBACTAM SOD 3.375 GM in DEXTROSE 5% (D5W) ADV/MINI-BAG 50 ML IV SCH (16:56)
[2024-04-11 19:31] VITALS: BP 148/72; TEMP 98.1; O2SAT 94
[2024-04-11] MEDS: LEVEMIR (INSULIN DETEMIR) 1 UNITS/0.01ML SC SCH (20:51)
[2024-04-12] VITALS (10 sets, daily range): BP systolic 124–146; BP diastolic 71–76; TEMP 97.5–98.8; O2SAT 95–97
[2024-04-12] MEDS: D5W 1,000 ML IV SCH (06:43)
[2024-04-12 06:51] LABS: BASO % 0.2 % (0.0-1.0); EOS # 0.3 10^3/uL (0.0-0.5); EOS % 2.2 % (0.0-3.0); HEMOGLOBIN 8.3 g/dl (13.5-17.5); LYMPH # 1.5 10^3/uL (1.5-5.0); LYMPH % 11.6 % (24.0-44.0); MEAN CORPUSCULAR HGB CONC 29.6 g/dl (32.0-36.5); MEAN CORPUSCULAR VOLUME 77.6 fl (80.0-96.0); MONO # 0.8 10^3/uL (0.0-0.8); MONO % 6.5 % (2.0-8.0); NEUTROPHILS # 10.2 10^3/uL (1.5-8.5); PLATELET COUNT, AUTOMATED 461 10^3/uL (150-450); RED BLOOD COUNT 3.61 10^6/uL (4.30-6.10); WHITE BLOOD COUNT 12.9 10^3/uL (4.0-10.0)
[2024-04-12 07:05] LABS: INR 1.2; PROTHROMBIN TIME 15.5 SECONDS (12.5-14.5)
[2024-04-12 07:39] LABS: BLOOD UREA NITROGEN < 5 MG/DL (9-23); CALCIUM LEVEL 7.7 MG/DL (8.3-10.6); CARBON DIOXIDE LEVEL 25 MMOL/L (20-31); CHLORIDE LEVEL 108 MMOL/L (98-107); CREATININE FOR GFR 0.52 MG/DL (0.70-1.30); GLOMERULAR FILTRATION RATE > 60.0 (>42); GLUCOSE, FASTING 86 MG/DL (74-106); POTASSIUM SERUM 3.9 MMOL/L (3.5-5.1); SODIUM LEVEL 138 MMOL/L (136-145)
[2024-04-12] MEDS ORDERED: METOCLOPRAMIDE INJ 10MG/2ML VIAL As Ordered ONE (10:34)
[2024-04-12] MEDS ORDERED: ONDANSETRON 4MG 2ML VIAL As Ordered ONE (10:34)
[2024-04-12] MEDS ORDERED: ACETAMINOPHEN 1000MG/100ML IV BAG As Ordered ONE (10:34)
[2024-04-12] MEDS ORDERED: dexmedeTOMIDine (4MCG/ML)200MCG/50ML BTL (PRECEDEX) As Ordered ONE (10:43)
[2024-04-12] MEDS ORDERED: PHENYLephrine 500MCG 5ML (100MCG/ML) SYRINGE As Ordered ONE (10:50)
[2024-04-12] MEDS ORDERED: ePHEDrine SULFATE 25 MG/5 ML(5MG/ML) SYRINGE As Ordered ONE (11:12)
[2024-04-12] MEDS ORDERED: oxyCODONE 5MG TAB PO PRN (11:50)
[2024-04-12] MEDS ORDERED: fentaNYL 100 MCG/2 ML INJECTION IV PRN (11:50)
[2024-04-12] MEDS: ONDANSETRON 4MG 2ML VIAL IV PRN (13:05)
[2024-04-12] MEDS: HYDROMORPHONE HCL 0.5 MG/ 0.5 ML SYRINGE IV PRN (13:06)
[2024-04-12 14:18] LABS: HEMATOCRIT 24.3 % (42.0-52.0); HEMOGLOBIN 7.3 g/dl (13.5-17.5)
[2024-04-12] MEDS: D5W/0.9% SODIUM CHLORIDE 1,000 ML IV SCH (14:20)
[2024-04-12] MEDS: PERCOCET 5MG/325MG TAB PO PRN (16:52)
[2024-04-12 22:40] LABS: Anaplasma phagocytophilum NOT DETECTED (NOT DETECT); Babesia microti NOT DETECTED (NOT DETECT)
[2024-04-12 23:33] LABS: BORRELIA SPECIES DNA NOT DETECTED (NOT DETECT); Ehrlichia chaffeensis NOT DETECTED
[2024-04-13] VITALS (9 sets, daily range): BP systolic 100–147; BP diastolic 65–75; TEMP 97.3–98.6; O2SAT 95–97
[2024-04-13 07:54] LABS: BASO % 0.2 % (0.0-1.0); EOS % 0.3 % (0.0-3.0); HEMATOCRIT 25.5 % (42.0-52.0); HEMOGLOBIN 8.1 g/dl (13.5-17.5); LYMPH # 1.4 10^3/uL (1.5-5.0); MEAN CORPUSCULAR HEMOGLOBIN 25.2 pg (27.0-33.0); MEAN CORPUSCULAR HGB CONC 31.8 g/dl (32.0-36.5); MEAN CORPUSCULAR VOLUME 79.4 fl (80.0-96.0); MONO # 0.6 10^3/uL (0.0-0.8); MONO % 4.9 % (2.0-8.0); NEUTROPHILS # 9.3 10^3/uL (1.5-8.5); NEUTROPHILS % 81.8 % (36.0-66.0); PLATELET COUNT, AUTOMATED 393 10^3/uL (150-450); RED BLOOD COUNT 3.21 10^6/uL (4.30-6.10); WHITE BLOOD COUNT 11.4 10^3/uL (4.0-10.0)
[2024-04-13 08:14] LABS: ALBUMIN 1.4 G/DL (3.2-5.2); ALKALINE PHOSPHATASE 82 U/L (40-129); ALT/SGPT 21 U/L (7.0-40); AST/SGOT 18 U/L (<34); BILIRUBIN,TOTAL 0.2 MG/DL (0.3-1.2); BLOOD UREA NITROGEN 10 MG/DL (9-23); CALCIUM LEVEL 7.5 MG/DL (8.3-10.6); CARBON DIOXIDE LEVEL 22 MMOL/L (20-31); CHLORIDE LEVEL 106 MMOL/L (98-107); CREATININE FOR GFR 0.46 MG/DL (0.70-1.30); GLOMERULAR FILTRATION RATE > 60.0 (>42); GLUCOSE, FASTING 300 MG/DL (74-106); POTASSIUM SERUM 4.3 MMOL/L (3.5-5.1); SODIUM LEVEL 133 MMOL/L (136-145); TOTAL PROTEIN 5.8 G/DL (5.7-8.2)
[2024-04-13] MEDS: FERRIC CARBOXYMALTOSE INJ 750 MG, VIAL MATE ADAPTER 1 EACH in NS 100 ML IV ONE (11:34)
[2024-04-13 14:12] LABS: HEMATOCRIT 25.6 % (42.0-52.0)
[2024-04-13 18:53] LABS: LYME TOTAL ANTIBODY CIA <= 0.90 Index (<=0.90)
[2024-04-14 03:50] VITALS: BP 148/83; TEMP 98.1; O2SAT 95
[2024-04-14 07:31] LABS: BLOOD UREA NITROGEN 10 MG/DL (9-23); CALCIUM LEVEL 8.2 MG/DL (8.3-10.6); CARBON DIOXIDE LEVEL 23 MMOL/L (20-31); CHLORIDE LEVEL 113 MMOL/L (98-107); CREATININE FOR GFR 0.45 MG/DL (0.70-1.30); GLOMERULAR FILTRATION RATE > 60.0 (>42); GLUCOSE, FASTING 199 MG/DL (74-106); POTASSIUM SERUM 4.8 MMOL/L (3.5-5.1); SODIUM LEVEL 141 MMOL/L (136-145)
[2024-04-14 07:47] LABS: BASO % 0.2 % (0.0-1.0); EOS # 0.2 10^3/uL (0.0-0.5); EOS % 1.1 % (0.0-3.0); HEMATOCRIT 31.9 % (42.0-52.0); LYMPH # 1.6 10^3/uL (1.5-5.0); LYMPH % 10.3 % (24.0-44.0); MEAN CORPUSCULAR HEMOGLOBIN 25.4 pg (27.0-33.0); MEAN CORPUSCULAR HGB CONC 31.3 g/dl (32.0-36.5); MEAN CORPUSCULAR VOLUME 81.2 fl (80.0-96.0); MONO # 0.9 10^3/uL (0.0-0.8); MONO % 5.6 % (2.0-8.0); NEUTROPHILS # 12.4 10^3/uL (1.5-8.5); NEUTROPHILS % 81.9 % (36.0-66.0); RED BLOOD COUNT 3.93 10^6/uL (4.30-6.10); WHITE BLOOD COUNT 15.2 10^3/uL (4.0-10.0)
[2024-04-14 07:51] LABS: PLATELET COUNT, AUTOMATED 512 10^3/uL (150-450)
[2024-04-14] MEDS: CLOPIDOGREL 75 MG TAB PO SCH (09:00)
[2024-04-14 12:00] VITALS: BP 134/80; TEMP 99.3; O2SAT 95
[2024-04-14 19:37] VITALS: BP 137/98; TEMP 98.6; O2SAT 93
[2024-04-15 03:55] VITALS: BP 129/75; TEMP 97.9; O2SAT 96
[2024-04-15 06:26] LABS: BASO % 0.3 % (0.0-1.0); EOS # 0.2 10^3/uL (0.0-0.5); EOS % 1.1 % (0.0-3.0); HEMATOCRIT 30.1 % (42.0-52.0); HEMOGLOBIN 9.2 g/dl (13.5-17.5); LYMPH # 1.8 10^3/uL (1.5-5.0); LYMPH % 12.7 % (24.0-44.0); MEAN CORPUSCULAR HEMOGLOBIN 25.3 pg (27.0-33.0); MEAN CORPUSCULAR HGB CONC 30.6 g/dl (32.0-36.5); MEAN CORPUSCULAR VOLUME 82.7 fl (80.0-96.0); MONO # 1.1 10^3/uL (0.0-0.8); MONO % 7.8 % (2.0-8.0); NEUTROPHILS # 10.7 10^3/uL (1.5-8.5); NEUTROPHILS % 76.8 % (36.0-66.0); PLATELET COUNT, AUTOMATED 529 10^3/uL (150-450); RED BLOOD COUNT 3.64 10^6/uL (4.30-6.10)
[2024-04-15 06:52] LABS: BLOOD UREA NITROGEN 11 MG/DL (9-23); CALCIUM LEVEL 8.3 MG/DL (8.3-10.6); CARBON DIOXIDE LEVEL 26 MMOL/L (20-31); CHLORIDE LEVEL 114 MMOL/L (98-107); CREATININE FOR GFR 0.43 MG/DL (0.70-1.30); GLOMERULAR FILTRATION RATE > 60.0 (>42); GLUCOSE, FASTING 211 MG/DL (74-106); POTASSIUM SERUM 4.8 MMOL/L (3.5-5.1); SODIUM LEVEL 144 MMOL/L (136-145)
[2024-04-15 12:07] LABS: APPEARANCE, URINE CLEAR (CLEAR); BACTERIA, URINE AUTO NEGATIVE (NEGATIVE); BILIRUBIN, URINE AUTO NEGATIVE (NEGATIVE); BLOOD, URINE BLOOD NEGATIVE (NEGATIVE); COLOR, URINE STRAW (YELLOW); GLUCOSE, URINE (UA) AUTO 3+ mg/dL (NEGATIVE); KETONE, URINE AUTO NEGATIVE (NEGATIVE); LEUKOCYTE ESTERASE, URINE AUTO TRACE (NEGATIVE); MUCUS, URINE SMALL (NEGATIVE); NITRITE, URINE AUTO NEGATIVE (NEGATIVE); PROTEIN, URINE AUTO NEGATIVE (NEGATIVE); RBC, URINE AUTO 8 /HPF (0-3); SPECIFIC GRAVITY URINE AUTO 1.016 (1.002-1.035); SQUAMOUS EPITHELIAL CELL UR AU 0 /HPF (0-6); UROBILINOGEN, URINE AUTO 0.2 mg/dL (0.0-2.0); WBC, URINE AUTO 12 /HPF (0-3)
[2024-04-15 12:38] VITALS: BP 150/82; TEMP 98.6; O2SAT 95
[2024-04-15 19:54] VITALS: BP 138/69; TEMP 98.1; O2SAT 95
[2024-04-16 04:00] VITALS: BP 148/82; TEMP 98.1; O2SAT 96
[2024-04-16 06:42] LABS: BASO % 0.3 % (0.0-1.0); EOS # 0.3 10^3/uL (0.0-0.5); EOS % 2.3 % (0.0-3.0); HEMATOCRIT 31.5 % (42.0-52.0); HEMOGLOBIN 9.4 g/dl (13.5-17.5); LYMPH # 1.7 10^3/uL (1.5-5.0); LYMPH % 13.3 % (24.0-44.0); MEAN CORPUSCULAR HEMOGLOBIN 25.9 pg (27.0-33.0); MEAN CORPUSCULAR HGB CONC 29.8 g/dl (32.0-36.5); MEAN CORPUSCULAR VOLUME 86.8 fl (80.0-96.0); MONO # 0.8 10^3/uL (0.0-0.8); MONO % 6.6 % (2.0-8.0); NEUTROPHILS # 9.3 10^3/uL (1.5-8.5); NEUTROPHILS % 75.6 % (36.0-66.0); PLATELET COUNT, AUTOMATED 608 10^3/uL (150-450); RED BLOOD COUNT 3.63 10^6/uL (4.30-6.10); WHITE BLOOD COUNT 12.4 10^3/uL (4.0-10.0)
[2024-04-16 06:59] LABS: BLOOD UREA NITROGEN 14 MG/DL (9-23); CALCIUM LEVEL 8.7 MG/DL (8.3-10.6); CARBON DIOXIDE LEVEL 24 MMOL/L (20-31); CHLORIDE LEVEL 115 MMOL/L (98-107); CREATININE FOR GFR 0.45 MG/DL (0.70-1.30); GLOMERULAR FILTRATION RATE > 60.0 (>42); GLUCOSE, FASTING 240 MG/DL (74-106); POTASSIUM SERUM 5.2 MMOL/L (3.5-5.1); SODIUM LEVEL 141 MMOL/L (136-145)
[2024-04-16] MEDS: SOD POLYSTYRENE SULFONATE SUSP 15GM 60ML UD PO ONE (08:43)
[2024-04-16 12:00] VITALS: BP 140/72; TEMP 98.3; O2SAT 95
[2024-04-16 19:27] VITALS: BP 154/88; TEMP 98.2; O2SAT 95
[2024-04-17 04:00] VITALS: BP 142/76; TEMP 97.7; O2SAT 96
[2024-04-17 06:58] LABS: BASO # 0.1 10^3/uL (0.0-0.2); BASO % 0.6 % (0.0-1.0); EOS # 0.4 10^3/uL (0.0-0.5); EOS % 4.4 % (0.0-3.0); HEMATOCRIT 34.5 % (42.0-52.0); HEMOGLOBIN 10.2 g/dl (13.5-17.5); LYMPH # 1.6 10^3/uL (1.5-5.0); MEAN CORPUSCULAR HEMOGLOBIN 25.6 pg (27.0-33.0); MEAN CORPUSCULAR HGB CONC 29.6 g/dl (32.0-36.5); MEAN CORPUSCULAR VOLUME 86.5 fl (80.0-96.0); MONO # 0.6 10^3/uL (0.0-0.8); MONO % 6.4 % (2.0-8.0); NEUTROPHILS # 6.6 10^3/uL (1.5-8.5); NEUTROPHILS % 69.7 % (36.0-66.0); PLATELET COUNT, AUTOMATED 644 10^3/uL (150-450); RED BLOOD COUNT 3.99 10^6/uL (4.30-6.10); WHITE BLOOD COUNT 9.5 10^3/uL (4.0-10.0)
[2024-04-17 07:22] LABS: BLOOD UREA NITROGEN 11 MG/DL (9-23); CALCIUM LEVEL 8.3 MG/DL (8.3-10.6); CARBON DIOXIDE LEVEL 22 MMOL/L (20-31); CHLORIDE LEVEL 107 MMOL/L (98-107); CREATININE FOR GFR 0.49 MG/DL (0.70-1.30); GLOMERULAR FILTRATION RATE > 60.0 (>42); GLUCOSE, FASTING 252 MG/DL (74-106); POTASSIUM SERUM 5.3 MMOL/L (3.5-5.1); SODIUM LEVEL 135 MMOL/L (136-145)
[2024-04-17] MEDS: BISACODYL 10MG SUPP PR ONE (10:30)
[2024-04-17] MEDS: SOD POLYSTYRENE SULFONATE SUSP 15GM 60ML UD PO ONE ×2 (11:32→20:44)
[2024-04-17 12:00] VITALS: BP 143/81; TEMP 98.1; O2SAT 95
[2024-04-17 19:38] VITALS: BP 134/82; TEMP 98.6; O2SAT 95
[2024-04-18 03:46] VITALS: BP 125/64; TEMP 98.2; O2SAT 95
[2024-04-18 07:08] LABS: BASO % 0.3 % (0.0-1.0); EOS # 0.3 10^3/uL (0.0-0.5); EOS % 2.6 % (0.0-3.0); HEMATOCRIT 32.7 % (42.0-52.0); HEMOGLOBIN 9.9 g/dl (13.5-17.5); LYMPH # 1.6 10^3/uL (1.5-5.0); LYMPH % 14.5 % (24.0-44.0); MEAN CORPUSCULAR HEMOGLOBIN 26.4 pg (27.0-33.0); MEAN CORPUSCULAR HGB CONC 30.3 g/dl (32.0-36.5); MEAN CORPUSCULAR VOLUME 87.2 fl (80.0-96.0); MONO # 0.8 10^3/uL (0.0-0.8); MONO % 7.1 % (2.0-8.0); NEUTROPHILS % 74.5 % (36.0-66.0); PLATELET COUNT, AUTOMATED 736 10^3/uL (150-450); RED BLOOD COUNT 3.75 10^6/uL (4.30-6.10); WHITE BLOOD COUNT 10.8 10^3/uL (4.0-10.0)
[2024-04-18 07:16] LABS: BLOOD UREA NITROGEN 13 MG/DL (9-23); CALCIUM LEVEL 8.2 MG/DL (8.3-10.6); CARBON DIOXIDE LEVEL 26 MMOL/L (20-31); CHLORIDE LEVEL 109 MMOL/L (98-107); CREATININE FOR GFR 0.37 MG/DL (0.70-1.30); GLOMERULAR FILTRATION RATE > 60.0 (>42); GLUCOSE, FASTING 223 MG/DL (74-106); SODIUM LEVEL 140 MMOL/L (136-145)
[2024-04-18] MEDS: FERROUS SULFATE 300MG/5ML UDC LIQUID PO SCH (09:16)
[2024-04-18 12:00] VITALS: BP 132/68; TEMP 98.6; O2SAT 95
[2024-04-18] MEDS ORDERED: CLOP75TA2 PO (13:37)
[2024-04-18] MEDS ORDERED: FERR5MLUD PO (13:37)
== END 2024-04-18 18:10 | disposition home health service (06) | DRG 240 ==
LOC: EEVIPCON 11:00 → M MS5PR 11:00
PROVIDERS: ADMIT Internal Medicine Nephrology; ATTEND Internal Medicine
PROC: 30233N1 Transfusion of Nonautologous Red Blood Cells into Peripheral Vein, Percutaneous Approach (ICD-10-PCS; 2024-04-07)
PROC: 0QBM0ZZ Excision of Left Tarsal, Open Approach (ICD-10-PCS; 2024-04-08)
PROC: 30233J1 Transfusion of Nonautologous Serum Albumin into Peripheral Vein, Percutaneous Approach (ICD-10-PCS; 2024-04-12)
PROC: 0Y6D0Z3 Detachment at Left Upper Leg, Low, Open Approach (ICD-10-PCS; principal; 2024-04-12 09:20)
DX: E11.52 Type 2 diabetes mellitus with diabetic peripheral angiopathy with gangrene (principal); I69.354 Hemiplegia and hemiparesis following cerebral infarction affecting left non-dominant side; D62 Acute posthemorrhagic anemia; M86.8X7 Other osteomyelitis, ankle and foot; E87.20 Acidosis, unspecified; E87.1 Hypo-osmolality and hyponatremia; E11.621 Type 2 diabetes mellitus with foot ulcer; F31.9 Bipolar disorder, unspecified; I10 Essential (primary) hypertension; B96.20 Unspecified Escherichia coli [E. coli] as the cause of diseases classified elsewhere; E61.1 Iron deficiency; D69.6 Thrombocytopenia, unspecified; L97.529 Non-pressure chronic ulcer of other part of left foot with unspecified severity; R33.9 Retention of urine, unspecified; F01.50 Vascular dementia, unspecified severity, without behavioral disturbance, psychotic disturbance, mood disturbance, and anxiety; E87.5 Hyperkalemia; B96.4 Proteus (mirabilis) (morganii) as the cause of diseases classified elsewhere; N30.90 Cystitis, unspecified without hematuria; I25.10 Atherosclerotic heart disease of native coronary artery without angina pectoris; I73.9 Peripheral vascular disease, unspecified; E11.69 Type 2 diabetes mellitus with other specified complication; Z79.2 Long term (current) use of antibiotics; Z79.82 Long term (current) use of aspirin; Z79.4 Long term (current) use of insulin; Z79.84 Long term (current) use of oral hypoglycemic drugs; Z79.899 Other long term (current) drug therapy; Z95.5 Presence of coronary angioplasty implant and graft; Z89.611 Acquired absence of right leg above knee

== ENCOUNTER → 2024-05-24 | Outpatient (REF) | payer OTHER, MEDICARE, MEDICAID ==
[~2024-05-24] MED LIST changes: +AMPI500C9 PO; +FERR5MLUD PO; +METF500T13 PO; +[UNRECOGNIZED DRUG - CODE] PO
[2024-05-24 19:17] LABS: HEMATOCRIT 38.9 % (42.0-52.0); MEAN CORPUSCULAR HGB CONC 30.8 g/dl (32.0-36.5); PLATELET COUNT, AUTOMATED 397 10^3/uL (150-450); RED BLOOD COUNT 4.14 10^6/uL (4.30-6.10); WHITE BLOOD COUNT 7.4 10^3/uL (4.0-10.0)
[2024-05-24 19:49] LABS: BLOOD UREA NITROGEN 23 MG/DL (9-23); CALCIUM LEVEL 9.1 MG/DL (8.3-10.6); CARBON DIOXIDE LEVEL 26 MMOL/L (20-31); CHLORIDE LEVEL 105 MMOL/L (98-107); CREATININE FOR GFR 0.42 MG/DL (0.70-1.30); GLOMERULAR FILTRATION RATE > 60.0 (>42); GLUCOSE, FASTING 139 MG/DL (74-106); POTASSIUM SERUM 4.5 MMOL/L (3.5-5.1); SODIUM LEVEL 139 MMOL/L (136-145)
== END ==
LOC: M LAB REF 16:43
PROVIDERS: ATTEND Internal Medicine
DX: D64.9 Anemia, unspecified (principal); D69.6 Thrombocytopenia, unspecified

== ENCOUNTER 2024-09-15 18:21 | Inpatient (IN) | payer OTHER, MEDICAID ==
[~2024-09-15] VITALS: Ht 172.7 cm; Wt 47.5 kg
[~2024-09-15 18:21] MED LIST changes: +BUPR-670 PO; +BUPR150T15 PO; -BUPR1TAB52 PO; -BUPR1TAB53 PO; +FERR300L12 PO; -FERR5MLUD PO
[2024-09-15 19:46] LABS: HEMATOCRIT 38.3 % (42.0-52.0); HEMOGLOBIN 12.4 g/dl (13.5-17.5); MEAN CORPUSCULAR HEMOGLOBIN 29.6 pg (27.0-33.0); MEAN CORPUSCULAR HGB CONC 32.4 g/dl (32.0-36.5); MEAN CORPUSCULAR VOLUME 91.4 fl (80.0-96.0); PLATELET COUNT, AUTOMATED 147 10^3/uL (150-450); RED BLOOD COUNT 4.19 10^6/uL (4.30-6.10); WHITE BLOOD COUNT 13.5 10^3/uL (4.0-10.0)
[2024-09-15 19:58] LABS: INR 1.16; PARTIAL THROMBOPLASTIN TIME 24.3 SECONDS (24.8-34.2); PROTHROMBIN TIME 15.1 SECONDS (12.5-14.5)
[2024-09-15 20:09] LABS: LYMPHOCYTES 3 % (16-44); NEUTROPHILS 90 % (28-66); PLATELET ESTIMATE DECREASED (NORMAL)
[2024-09-15 20:10] LABS: ANISOCYTOSIS 1+; TOXIC VACUOLATION 2+
[2024-09-15 20:18] LABS: ALBUMIN 2.1 G/DL (3.2-5.2); BILIRUBIN,DIRECT 0.1 MG/DL (<0.4); BILIRUBIN,TOTAL 0.2 MG/DL (0.3-1.2); CALCIUM LEVEL 8.6 MG/DL (8.3-10.6); CREATININE FOR GFR 1.3 MG/DL (0.70-1.30); GLOMERULAR FILTRATION RATE 58.7 (>42); POTASSIUM SERUM 3.1 MMOL/L (3.5-5.1)
[2024-09-15] MEDS: NS (Normal Saline) 0.9% 1,000 ML IV ONE (20:23)
[2024-09-15] MEDS: cefTRIAXone SOD 2 GM in DEXTROSE 5% (D5W) ADV/MINI-BAG 50 ML IV ONE (20:24)
[2024-09-15 20:25] LABS: PROCALCITONIN 26.32 ng/ml
[2024-09-15] MEDS ORDERED: ISOVUE-370 76% 100ML VIAL As Ordered ONE (20:32)
[2024-09-15 20:41] LABS: C REACTIVE PROTEIN QUANTITATIV 26.96 MG/DL (<1.0)
[2024-09-15] MEDS: ACETAMINOPHEN *IV* 1,000 MG in IV 1 EA IV ONE (21:45)
[2024-09-15 22:45] LABS: APPEARANCE, URINE CLOUDY (CLEAR); BACTERIA, URINE AUTO 1+ (NEGATIVE); BILIRUBIN, URINE AUTO NEGATIVE (NEGATIVE); BLOOD, URINE BLOOD 2+ (NEGATIVE); COLOR, URINE YELLOW (YELLOW); GLUCOSE, URINE (UA) AUTO 3+ mg/dL (NEGATIVE); KETONE, URINE AUTO NEGATIVE (NEGATIVE); LEUKOCYTE ESTERASE, URINE AUTO 3+ (NEGATIVE); NITRITE, URINE AUTO POSITIVE (NEGATIVE); PROTEIN, URINE AUTO 1+ mg/dL (NEGATIVE); RBC, URINE AUTO 19 /HPF (0-3); SPECIFIC GRAVITY URINE AUTO 1.011 (1.002-1.035); SQUAMOUS EPITHELIAL CELL UR AU 0 /HPF (0-6); UROBILINOGEN, URINE AUTO 0.2 mg/dL (0.0-2.0); WBC, URINE AUTO TNTC /HPF (0-3)
[2024-09-16] VITALS (8 sets, daily range): BP systolic 126–155; BP diastolic 74–93; TEMP 97.2–101.3; O2SAT 96–99
[2024-09-16] MEDS ORDERED: MED REC IN PROGRESS XX SCH (00:25)
[2024-09-16] MEDS ORDERED: ACETAMINOPHEN 325 MG TAB PO PRN (01:15)
[2024-09-16] MEDS ORDERED: MAALOX 30 ML SUSP *UDC PO PRN (01:15)
[2024-09-16] MEDS: AZITHROMYCIN 250MG TABLET PO SCH (04:22)
[2024-09-16] MEDS: AZITHROMYCIN INJ 500 MG, VIAL MATE ADAPTER 1 EACH in NS 250 ML IV SCH (05:54)
[2024-09-16] MEDS: methylPREDNISolone 125MG 2ML VIAL IV SCH (05:54)
[2024-09-16] MEDS ORDERED: GLUCAGON INJ 1MG VIAL SC PRN (07:10)
[2024-09-16] MEDS ORDERED: GLUCOSE 4 GM CHEW PO PRN (07:10)
[2024-09-16] MEDS: INSULIN LISPRO (NovoLOG) PER UNIT SC SCH ×3 (07:30→21:30)
[2024-09-16] MEDS: LR 1,000 ML IV SCH (08:25)
[2024-09-16] MEDS: DOCUSATE SODIUM 100MG CAPSULE PO SCH (09:00)
[2024-09-16] MEDS: buPROPion 100 MG TAB PO SCH (09:00)
[2024-09-16] MEDS ORDERED: DONE5TAB82 PO (09:18)
[2024-09-16] MEDS ORDERED: BUPR-69 PO (09:19)
[2024-09-16] MEDS: ACETAMINOPHEN *IV* 1,000 MG in IV 1 EA IV PRN (09:43)
[2024-09-16 09:56] LABS: VENOUS BASE EXCESS -5.5 (-2.0-2.0); VENOUS HCO3 17.1 MMOL/L (23.0-27.0); VENOUS O2 SATURATION 99.4 % (60.0-80.0); VENOUS PARTIAL PRESSURE CO2 26.1 mmHg (38.0-50.0); VENOUS PARTIAL PRESSURE O2 180.4 mmHg (30.0-50.0); VENOUS PH 7.434 UNITS (7.330-7.430); VENOUS TOTAL CO2 17.9 MMOL/L (24.0-28.0)
[2024-09-16 10:17] LABS: HEMATOCRIT 38.4 % (42.0-52.0); HEMOGLOBIN 12.6 g/dl (13.5-17.5); MEAN CORPUSCULAR HEMOGLOBIN 29.3 pg (27.0-33.0); MEAN CORPUSCULAR HGB CONC 32.8 g/dl (32.0-36.5); MEAN CORPUSCULAR VOLUME 89.3 fl (80.0-96.0); PLATELET COUNT, AUTOMATED 140 10^3/uL (150-450); WHITE BLOOD COUNT 15.1 10^3/uL (4.0-10.0)
[2024-09-16] MEDS: CEFTAROLINE FOSAMIL 400 MG in DEXTROSE 5% (D5W) ADV/MINI-BAG 50 ML IV SCH (10:18)
[2024-09-16 10:34] LABS: ALBUMIN 1.9 G/DL (3.2-5.2); ALKALINE PHOSPHATASE 140 U/L (40-129); ALT/SGPT 102 U/L (7.0-40); AST/SGOT 95 U/L (<34); BILIRUBIN,DIRECT < 0.1 MG/DL (<0.4); BILIRUBIN,TOTAL 0.2 MG/DL (0.3-1.2); BLOOD UREA NITROGEN 52 MG/DL (9-23); CALCIUM LEVEL 8.4 MG/DL (8.3-10.6); CARBON DIOXIDE LEVEL 21 MMOL/L (20-31); CHLORIDE LEVEL 113 MMOL/L (98-107); GLOMERULAR FILTRATION RATE 71.8 (>42); GLUCOSE, FASTING 137 MG/DL (74-106); POTASSIUM SERUM 3.2 MMOL/L (3.5-5.1); SODIUM LEVEL 147 MMOL/L (136-145)
[2024-09-16 11:05] LABS: ATYPICAL LYMPH 1 % (0-5); LYMPHOCYTES 7 % (16-44); MONOCYTES 2 % (0-5); NEUTROPHILS 82 % (28-66); PLATELET ESTIMATE DECREASED (NORMAL)
[2024-09-16 11:10] LABS: HEPATITIS B SURFACE ANTIGEN NEGATIVE (NEGATIVE)
[2024-09-16 11:31] LABS: HEPATITIS B CORE ANTIBODY IGM NEGATIVE (NEGATIVE); HEPATITIS C VIRUS ABY INDEX 0.04 INDEX (<0.8)
[2024-09-16] MEDS ORDERED: INSULIN LISPRO (NovoLOG) PER UNIT SC SCH ×2 (12:00→21:00)
[2024-09-16] MEDS: KCL 10MEQ/100ML SWI (KRUN) 10 MEQ in IV 1 EA IV SCH (12:13)
[2024-09-16] MEDS: D5W 1,000 ML IV SCH (12:13)
[2024-09-16] MEDS: CLOPIDOGREL 75 MG TAB PO SCH (12:13)
[2024-09-16] MEDS: BISACODYL 10MG SUPP PR SCH (12:13)
[2024-09-16] MEDS: ASPIRIN 81MG ENTERIC TABLET PO SCH (12:14)
[2024-09-16] MEDS: DONEPEZIL 5 MG TAB PO SCH (12:14)
[2024-09-16] MEDS: HEPARIN SOD 5000UNITS/ML 1ML VIAL/SYRINGE SQ SCH (14:44)
[2024-09-16] MEDS ORDERED: SODIUM CHLORIDE 0.9% INJ 10 ML SYR IV PRN (18:45)
[2024-09-16] MEDS: SODIUM CHLORIDE 0.9% INJ 10 ML SYR IV SCH (18:45)
[2024-09-16] MEDS ORDERED: cefTRIAXone SOD 1 GM in DEXTROSE 5% (D5W) ADV/MINI-BAG 50 ML IV SCH (20:00)
[2024-09-16] MEDS ORDERED: DIVALPROEX 500MG *ER* TAB PO SCH (21:00)
[2024-09-16] MEDS: ATORVASTATIN 20 MG TAB PO SCH (21:31)
[2024-09-16] MEDS: LanTUS (INSULIN GLARGINE INJ) 1 UNITS/0.01 ML SC SCH (21:31)
[2024-09-16] MEDS: EZETIMIBE 10MG TABLET PO SCH (21:31)
[2024-09-16] MEDS: DIVALPROEX SPRINKLE 125 MG CAP PO SCH (22:29)
[2024-09-17] VITALS (8 sets, daily range): BP systolic 133–159; BP diastolic 65–80; TEMP 98–101; O2SAT 95–100
[2024-09-17 06:20] LABS: HEMATOCRIT 36.1 % (42.0-52.0); HEMOGLOBIN 11.8 g/dl (13.5-17.5); MEAN CORPUSCULAR HEMOGLOBIN 29.2 pg (27.0-33.0); MEAN CORPUSCULAR HGB CONC 32.7 g/dl (32.0-36.5); MEAN CORPUSCULAR VOLUME 89.4 fl (80.0-96.0); PLATELET COUNT, AUTOMATED 156 10^3/uL (150-450); RED BLOOD COUNT 4.04 10^6/uL (4.30-6.10); WHITE BLOOD COUNT 19.7 10^3/uL (4.0-10.0)
[2024-09-17 06:44] LABS: ALBUMIN 1.8 G/DL (3.2-5.2); ALKALINE PHOSPHATASE 166 U/L (40-129); ALT/SGPT 152 U/L (7.0-40); AST/SGOT 153 U/L (<34); BILIRUBIN,DIRECT < 0.1 MG/DL (<0.4); BILIRUBIN,TOTAL 0.2 MG/DL (0.3-1.2); BLOOD UREA NITROGEN 51 MG/DL (9-23); CALCIUM LEVEL 8.4 MG/DL (8.3-10.6); CARBON DIOXIDE LEVEL 20 MMOL/L (20-31); CHLORIDE LEVEL 113 MMOL/L (98-107); CREATININE FOR GFR 1.02 MG/DL (0.70-1.30); GLOMERULAR FILTRATION RATE 78.6 (>42); GLUCOSE, FASTING 349 MG/DL (74-106); POTASSIUM SERUM 3.3 MMOL/L (3.5-5.1); SODIUM LEVEL 144 MMOL/L (136-145); TOTAL PROTEIN 5.7 G/DL (5.7-8.2)
[2024-09-17 07:15] LABS: LYMPHOCYTES 2 % (16-44); MONOCYTES 3 % (0-5); MYELOCYTES 1 % (0-0); NEUTROPHILS 90 % (28-66)
[2024-09-17 07:20] LABS: ANISOCYTOSIS 1+; DOHLE BODIES 1+; PLATELET ESTIMATE NORMAL (NORMAL)
[2024-09-17] MEDS: AMPICILLIN SOD/SULBACTAM SOD 3 GM in DEXTROSE 5% (D5W) MINI-BAG PLU 100 ML IV SCH (08:10)
[2024-09-17] MEDS: LanTUS (INSULIN GLARGINE INJ) 1 UNITS/0.01 ML SC ONE (08:11)
[2024-09-17] MEDS: POTASSIUM CHLORIDE 10% LIQ 20MEQ/15ML UDC PO ONE (08:18)
[2024-09-17] MEDS: LR 1,000 ML IV SCH (08:50)
[2024-09-17] MEDS: MOM 30ML SUSPENSION UDC PO SCH (12:58)
[2024-09-17] MEDS: ACETAMINOPHEN *IV* 1,000 MG in IV 1 EA IV PRN (16:10)
[2024-09-17] MEDS: PIPERACILLIN/TAZOBACTAM SOD 3.375 GM in DEXTROSE 5% (D5W) ADV/MINI-BAG 50 ML IV SCH (21:51)
[2024-09-17] MEDS: LanTUS (INSULIN GLARGINE INJ) 1 UNITS/0.01 ML SC SCH (21:52)
[2024-09-18 03:04] VITALS: BP 159/90; TEMP 98.3; O2SAT 94
[2024-09-18 06:15] LABS: HEMATOCRIT 34.1 % (42.0-52.0); HEMOGLOBIN 11.3 g/dl (13.5-17.5); MEAN CORPUSCULAR HEMOGLOBIN 29.3 pg (27.0-33.0); MEAN CORPUSCULAR HGB CONC 33.1 g/dl (32.0-36.5); MEAN CORPUSCULAR VOLUME 88.3 fl (80.0-96.0); PLATELET COUNT, AUTOMATED 127 10^3/uL (150-450); RED BLOOD COUNT 3.86 10^6/uL (4.30-6.10); WHITE BLOOD COUNT 17.1 10^3/uL (4.0-10.0)
[2024-09-18 06:45] LABS: ALBUMIN 1.8 G/DL (3.2-5.2); BILIRUBIN,DIRECT 0.1 MG/DL (<0.4); BILIRUBIN,TOTAL 0.3 MG/DL (0.3-1.2); CALCIUM LEVEL 8.3 MG/DL (8.3-10.6); CREATININE FOR GFR 0.93 MG/DL (0.70-1.30); GLOMERULAR FILTRATION RATE 87.8 (>42); POTASSIUM SERUM 3.6 MMOL/L (3.5-5.1); TOTAL PROTEIN 5.6 G/DL (5.7-8.2)
[2024-09-18 06:52] LABS: ATYPICAL LYMPH 1 % (0-5); LYMPHOCYTES 7 % (16-44); MONOCYTES 7 % (0-5); MYELOCYTES 1 % (0-0); NEUTROPHILS 79 % (28-66)
[2024-09-18 06:55] LABS: ANISOCYTOSIS 1+; PLATELET ESTIMATE DECREASED (NORMAL)
[2024-09-18 06:58] LABS: POIKILOCYTOSIS 1+
[2024-09-18] MEDS: D5W 500 ML IV ONE (07:37)
[2024-09-18 08:00] VITALS: BP 159/78; TEMP 98.2; O2SAT 94
[2024-09-18] MEDS: LanTUS (INSULIN GLARGINE INJ) 1 UNITS/0.01 ML SC ONE (08:09)
[2024-09-18] MEDS: D5W 1,000 ML IV SCH (08:10)
[2024-09-18 10:06] LABS: ERYTHROCYTE SEDIMENTATION RATE 91 mm/hr (0-20)
[2024-09-18 10:20] LABS: PROCALCITONIN 4.92 ng/ml
[2024-09-18 10:21] LABS: C REACTIVE PROTEIN QUANTITATIV 12.77 MG/DL (<1.0)
[2024-09-18] MEDS: cefTRIAXone SOD 2 GM in DEXTROSE 5% (D5W) ADV/MINI-BAG 50 ML IV SCH (11:00)
[2024-09-18 12:00] VITALS: BP 150/103; TEMP 98.2; O2SAT 95
[2024-09-18 16:00] VITALS: BP 139/75; TEMP 98.5; O2SAT 95
[2024-09-18 16:56] LABS: ALBUMIN 1.7 G/DL (3.2-5.2); ALKALINE PHOSPHATASE 210 U/L (40-129); ALT/SGPT 160 U/L (7.0-40); AST/SGOT 114 U/L (<34); BILIRUBIN,TOTAL < 0.2 MG/DL (0.3-1.2); BLOOD UREA NITROGEN 31 MG/DL (9-23); CALCIUM LEVEL 7.6 MG/DL (8.3-10.6); CARBON DIOXIDE LEVEL 25 MMOL/L (20-31); CHLORIDE LEVEL 116 MMOL/L (98-107); CREATININE FOR GFR 0.81 MG/DL (0.70-1.30); GLOMERULAR FILTRATION RATE > 90.0 (>42); GLUCOSE, FASTING 284 MG/DL (74-106); POTASSIUM SERUM 3.7 MMOL/L (3.5-5.1); SODIUM LEVEL 151 MMOL/L (136-145); TOTAL PROTEIN 5.5 G/DL (5.7-8.2)
[2024-09-18 19:50] VITALS: BP 144/76; TEMP 97.7; O2SAT 96
[2024-09-18] MEDS: LanTUS (INSULIN GLARGINE INJ) 1 UNITS/0.01 ML SC SCH (21:21)
[2024-09-18 23:36] VITALS: BP 150/72; TEMP 98.3; O2SAT 99
[2024-09-19 03:36] VITALS: BP 141/74; TEMP 99; O2SAT 94
[2024-09-19 04:00] LABS: BASO # 0.1 10^3/uL (0.0-0.2); BASO % 0.3 % (0.0-1.0); EOS # 0.1 10^3/uL (0.0-0.5); EOS % 0.5 % (0.0-3.0); HEMOGLOBIN 10.8 g/dl (13.5-17.5); LYMPH % 5.8 % (24.0-44.0); MEAN CORPUSCULAR HEMOGLOBIN 29.3 pg (27.0-33.0); MEAN CORPUSCULAR HGB CONC 32.7 g/dl (32.0-36.5); MEAN CORPUSCULAR VOLUME 89.7 fl (80.0-96.0); MONO # 1.3 10^3/uL (0.0-0.8); MONO % 7.4 % (2.0-8.0); NEUTROPHILS # 13.7 10^3/uL (1.5-8.5); NEUTROPHILS % 81.5 % (36.0-66.0); PLATELET COUNT, AUTOMATED 113 10^3/uL (150-450); RED BLOOD COUNT 3.68 10^6/uL (4.30-6.10); WHITE BLOOD COUNT 16.8 10^3/uL (4.0-10.0)
[2024-09-19 04:16] LABS: ALBUMIN 1.7 G/DL (3.2-5.2); ALKALINE PHOSPHATASE 194 U/L (40-129); ALT/SGPT 132 U/L (7.0-40); AST/SGOT 70 U/L (<34); BILIRUBIN,DIRECT < 0.1 MG/DL (<0.4); BILIRUBIN,TOTAL 0.2 MG/DL (0.3-1.2); BLOOD UREA NITROGEN 27 MG/DL (9-23); CALCIUM LEVEL 7.9 MG/DL (8.3-10.6); CARBON DIOXIDE LEVEL 26 MMOL/L (20-31); CHLORIDE LEVEL 117 MMOL/L (98-107); CREATININE FOR GFR 0.96 MG/DL (0.70-1.30); GLOMERULAR FILTRATION RATE 84.5 (>42); GLUCOSE, FASTING 205 MG/DL (74-106); POTASSIUM SERUM 3.9 MMOL/L (3.5-5.1); SODIUM LEVEL 152 MMOL/L (136-145); TOTAL PROTEIN 5.6 G/DL (5.7-8.2)
[2024-09-19 07:41] LABS: VALPROIC ACID (DEPAKOTE) 8.4 UG/ML (50.0-100.0)
[2024-09-19] MEDS: LanTUS (INSULIN GLARGINE INJ) 1 UNITS/0.01 ML SC ONE (08:22)
[2024-09-19 08:47] VITALS: BP 143/79; TEMP 98.3; O2SAT 98
[2024-09-19 09:25] LABS: SODIUM,RANDOM URINE 19 MMOL/L
[2024-09-19 11:42] VITALS: BP 147/87; TEMP 98.5; O2SAT 96
[2024-09-19 15:45] VITALS: BP 145/66; TEMP 101.1; O2SAT 93
[2024-09-19] MEDS: ACETAMINOPHEN 325 MG TAB PO PRN (16:03)
[2024-09-19 17:02] LABS: ALBUMIN 1.7 G/DL (3.2-5.2); ALKALINE PHOSPHATASE 193 U/L (40-129); ALT/SGPT 105 U/L (7.0-40); AST/SGOT 56 U/L (<34); BILIRUBIN,DIRECT < 0.1 MG/DL (<0.4); BILIRUBIN,TOTAL 0.2 MG/DL (0.3-1.2); BLOOD UREA NITROGEN 22 MG/DL (9-23); CALCIUM LEVEL 7.5 MG/DL (8.3-10.6); CARBON DIOXIDE LEVEL 26 MMOL/L (20-31); CHLORIDE LEVEL 110 MMOL/L (98-107); CREATININE FOR GFR 0.76 MG/DL (0.70-1.30); GLOMERULAR FILTRATION RATE > 90.0 (>42); GLUCOSE, FASTING 222 MG/DL (74-106); POTASSIUM SERUM 3.8 MMOL/L (3.5-5.1); SODIUM LEVEL 144 MMOL/L (136-145); TOTAL PROTEIN 5.8 G/DL (5.7-8.2)
[2024-09-19 19:36] VITALS: BP 143/66; TEMP 100.4; O2SAT 97
[2024-09-19] MEDS: LanTUS (INSULIN GLARGINE INJ) 1 UNITS/0.01 ML SC SCH (20:55)
[2024-09-19 23:31] VITALS: BP 112/63; TEMP 102.6; O2SAT 97
[2024-09-19] MEDS: ACETAMINOPHEN *IV* 1,000 MG in IV 1 EA IV ONE (23:59)
[2024-09-20] VITALS (11 sets, daily range): BP systolic 119–150; BP diastolic 56–69; TEMP 97.6–103.7; O2SAT 94–100
[2024-09-20 04:52] LABS: BASO # 0.1 10^3/uL (0.0-0.2); BASO % 0.3 % (0.0-1.0); EOS # 0.3 10^3/uL (0.0-0.5); EOS % 1.7 % (0.0-3.0); HEMATOCRIT 31.9 % (42.0-52.0); HEMOGLOBIN 10.1 g/dl (13.5-17.5); LYMPH # 1.2 10^3/uL (1.5-5.0); LYMPH % 6.4 % (24.0-44.0); MEAN CORPUSCULAR HEMOGLOBIN 28.9 pg (27.0-33.0); MEAN CORPUSCULAR HGB CONC 31.7 g/dl (32.0-36.5); MEAN CORPUSCULAR VOLUME 91.1 fl (80.0-96.0); MONO # 1.3 10^3/uL (0.0-0.8); MONO % 7.1 % (2.0-8.0); NEUTROPHILS # 14.1 10^3/uL (1.5-8.5); NEUTROPHILS % 78.6 % (36.0-66.0); PLATELET COUNT, AUTOMATED 119 10^3/uL (150-450)
[2024-09-20 05:01] LABS: ERYTHROCYTE SEDIMENTATION RATE 69 mm/hr (0-20)
[2024-09-20 05:02] LABS: C REACTIVE PROTEIN QUANTITATIV 8.78 MG/DL (<1.0)
[2024-09-20 05:13] LABS: PROCALCITONIN 1.33 ng/ml
[2024-09-20 05:17] LABS: ALBUMIN 1.4 G/DL (3.2-5.2); ALKALINE PHOSPHATASE 148 U/L (40-129); ALT/SGPT 72 U/L (7.0-40); AST/SGOT 30 U/L (<34); BILIRUBIN,DIRECT 0.1 MG/DL (<0.4); BILIRUBIN,TOTAL 0.3 MG/DL (0.3-1.2); BLOOD UREA NITROGEN 17 MG/DL (9-23); CALCIUM LEVEL 6.8 MG/DL (8.3-10.6); CARBON DIOXIDE LEVEL 24 MMOL/L (20-31); CHLORIDE LEVEL 107 MMOL/L (98-107); CREATININE FOR GFR 0.71 MG/DL (0.70-1.30); GLOMERULAR FILTRATION RATE > 90.0 (>42); GLUCOSE, FASTING 227 MG/DL (74-106); POTASSIUM SERUM 3.2 MMOL/L (3.5-5.1); SODIUM LEVEL 139 MMOL/L (136-145)
[2024-09-20] MEDS: ACETAMINOPHEN *IV* 1,000 MG in IV 1 EA IV ONE (09:46)
[2024-09-20] MEDS: KCL 20MEQ IN D5/0.45NS 1000ML 1,000 ML IV SCH (12:01)
[2024-09-20 17:07] LABS: BLOOD UREA NITROGEN 15 MG/DL (9-23); CALCIUM LEVEL 6.9 MG/DL (8.3-10.6); CARBON DIOXIDE LEVEL 27 MMOL/L (20-31); CHLORIDE LEVEL 107 MMOL/L (98-107); CREATININE FOR GFR 0.68 MG/DL (0.70-1.30); GLOMERULAR FILTRATION RATE > 90.0 (>42); GLUCOSE, FASTING 237 MG/DL (74-106); POTASSIUM SERUM 3.7 MMOL/L (3.5-5.1); SODIUM LEVEL 142 MMOL/L (136-145)
[2024-09-21] VITALS (8 sets, daily range): BP systolic 118–158; BP diastolic 62–83; TEMP 97.9–99.9; O2SAT 93–97
[2024-09-21 05:44] LABS: BASO # 0.1 10^3/uL (0.0-0.2); BASO % 0.3 % (0.0-1.0); EOS # 0.5 10^3/uL (0.0-0.5); EOS % 2.5 % (0.0-3.0); HEMATOCRIT 30.5 % (42.0-52.0); HEMOGLOBIN 9.7 g/dl (13.5-17.5); LYMPH # 1.2 10^3/uL (1.5-5.0); LYMPH % 6.2 % (24.0-44.0); MEAN CORPUSCULAR HEMOGLOBIN 29.4 pg (27.0-33.0); MEAN CORPUSCULAR HGB CONC 31.8 g/dl (32.0-36.5); MEAN CORPUSCULAR VOLUME 92.4 fl (80.0-96.0); MONO # 1.1 10^3/uL (0.0-0.8); MONO % 5.7 % (2.0-8.0); NEUTROPHILS # 15.7 10^3/uL (1.5-8.5); NEUTROPHILS % 80.6 % (36.0-66.0); PLATELET COUNT, AUTOMATED 219 10^3/uL (150-450); WHITE BLOOD COUNT 19.5 10^3/uL (4.0-10.0)
[2024-09-21 06:12] LABS: ALBUMIN 1.4 G/DL (3.2-5.2); ALKALINE PHOSPHATASE 138 U/L (40-129); ALT/SGPT 54 U/L (7.0-40); AST/SGOT 19 U/L (<34); BILIRUBIN,DIRECT < 0.1 MG/DL (<0.4); BILIRUBIN,TOTAL 0.2 MG/DL (0.3-1.2); BLOOD UREA NITROGEN 14 MG/DL (9-23); CALCIUM LEVEL 7.2 MG/DL (8.3-10.6); CARBON DIOXIDE LEVEL 27 MMOL/L (20-31); CHLORIDE LEVEL 112 MMOL/L (98-107); CREATININE FOR GFR 0.75 MG/DL (0.70-1.30); GLOMERULAR FILTRATION RATE > 90.0 (>42); GLUCOSE, FASTING 203 MG/DL (74-106); POTASSIUM SERUM 3.7 MMOL/L (3.5-5.1); SODIUM LEVEL 149 MMOL/L (136-145); TOTAL PROTEIN 5.3 G/DL (5.7-8.2)
[2024-09-21 09:58] LABS: PROCALCITONIN 0.98 ng/ml
[2024-09-21] MEDS: KCL 20MEQ IN D5W 1000ML 1,000 ML IV SCH (10:28)
[2024-09-21] MEDS: NYSTATIN OINTMENT 15 GM TOP SCH (13:06)
[2024-09-22 03:47] VITALS: BP 156/70; TEMP 98.3; O2SAT 96
[2024-09-22 05:43] LABS: BASO % 0.1 % (0.0-1.0); EOS # 0.4 10^3/uL (0.0-0.5); EOS % 2.6 % (0.0-3.0); HEMATOCRIT 27.8 % (42.0-52.0); LYMPH # 1.2 10^3/uL (1.5-5.0); LYMPH % 6.7 % (24.0-44.0); MEAN CORPUSCULAR HEMOGLOBIN 29.7 pg (27.0-33.0); MEAN CORPUSCULAR HGB CONC 32.4 g/dl (32.0-36.5); MEAN CORPUSCULAR VOLUME 91.7 fl (80.0-96.0); NEUTROPHILS % 81.5 % (36.0-66.0); PLATELET COUNT, AUTOMATED 277 10^3/uL (150-450); RED BLOOD COUNT 3.03 10^6/uL (4.30-6.10); WHITE BLOOD COUNT 17.2 10^3/uL (4.0-10.0)
[2024-09-22 06:03] LABS: ERYTHROCYTE SEDIMENTATION RATE 106 mm/hr (0-20)
[2024-09-22 06:16] LABS: PROCALCITONIN 0.74 ng/ml
[2024-09-22 06:27] LABS: ALBUMIN 1.4 G/DL (3.2-5.2); ALKALINE PHOSPHATASE 129 U/L (40-129); ALT/SGPT 43 U/L (7.0-40); AST/SGOT 16 U/L (<34); BILIRUBIN,DIRECT < 0.1 MG/DL (<0.4); BILIRUBIN,TOTAL 0.2 MG/DL (0.3-1.2); BLOOD UREA NITROGEN 11 MG/DL (9-23); C REACTIVE PROTEIN QUANTITATIV 12.51 MG/DL (<1.0); CALCIUM LEVEL 7.6 MG/DL (8.3-10.6); CARBON DIOXIDE LEVEL 25 MMOL/L (20-31); CHLORIDE LEVEL 114 MMOL/L (98-107); CREATININE FOR GFR 0.66 MG/DL (0.70-1.30); GLOMERULAR FILTRATION RATE > 90.0 (>42); GLUCOSE, FASTING 133 MG/DL (74-106); POTASSIUM SERUM 4.3 MMOL/L (3.5-5.1); SODIUM LEVEL 148 MMOL/L (136-145); TOTAL PROTEIN 5.6 G/DL (5.7-8.2)
[2024-09-22 07:50] VITALS: BP 129/63; TEMP 98.2; O2SAT 96
[2024-09-22 12:03] VITALS: BP 138/62; TEMP 98.2; O2SAT 97
[2024-09-22 15:47] VITALS: BP 128/84; TEMP 98.4; O2SAT 97
[2024-09-22 19:59] VITALS: BP 139/82; TEMP 98.4; O2SAT 92
[2024-09-22 23:11] VITALS: BP 130/91; TEMP 98.3; O2SAT 94
[2024-09-23] VITALS (10 sets, daily range): BP systolic 100–146; BP diastolic 58–73; TEMP 97–101.9; O2SAT 92–100
[2024-09-23 05:55] LABS: BASO # 0.1 10^3/uL (0.0-0.2); BASO % 0.2 % (0.0-1.0); EOS # 0.6 10^3/uL (0.0-0.5); EOS % 2.9 % (0.0-3.0); HEMATOCRIT 28.4 % (42.0-52.0); HEMOGLOBIN 8.9 g/dl (13.5-17.5); LYMPH # 2.8 10^3/uL (1.5-5.0); LYMPH % 13.3 % (24.0-44.0); MEAN CORPUSCULAR HEMOGLOBIN 28.2 pg (27.0-33.0); MEAN CORPUSCULAR HGB CONC 31.3 g/dl (32.0-36.5); MEAN CORPUSCULAR VOLUME 89.9 fl (80.0-96.0); MONO # 1.8 10^3/uL (0.0-0.8); MONO % 8.5 % (2.0-8.0); NEUTROPHILS # 14.9 10^3/uL (1.5-8.5); NEUTROPHILS % 70.9 % (36.0-66.0); PLATELET COUNT, AUTOMATED 473 10^3/uL (150-450); RED BLOOD COUNT 3.16 10^6/uL (4.30-6.10)
[2024-09-23 06:40] LABS: ALBUMIN 1.4 G/DL (3.2-5.2); ALKALINE PHOSPHATASE 138 U/L (40-129); ALT/SGPT 35 U/L (7.0-40); AST/SGOT 19 U/L (<34); BILIRUBIN,DIRECT < 0.1 MG/DL (<0.4); BILIRUBIN,TOTAL < 0.2 MG/DL (0.3-1.2); BLOOD UREA NITROGEN 9 MG/DL (9-23); CALCIUM LEVEL 7.7 MG/DL (8.3-10.6); CARBON DIOXIDE LEVEL 26 MMOL/L (20-31); CHLORIDE LEVEL 112 MMOL/L (98-107); CREATININE FOR GFR 0.68 MG/DL (0.70-1.30); GLOMERULAR FILTRATION RATE > 90.0 (>42); GLUCOSE, FASTING 51 MG/DL (74-106); POTASSIUM SERUM 5.7 MMOL/L (3.5-5.1); SODIUM LEVEL 144 MMOL/L (136-145); TOTAL PROTEIN 5.6 G/DL (5.7-8.2)
[2024-09-23] MEDS: ACETAMINOPHEN 325 MG TAB PO ONE (21:57)
[2024-09-24 03:24] VITALS: BP 151/75; TEMP 98.2; O2SAT 92
[2024-09-24] MEDS: DEXTROSE 50% 50ML SYRINGE IV PRN (06:29)
[2024-09-24 07:30] VITALS: BP 157/67; TEMP 98.8; O2SAT 98
[2024-09-24 11:31] VITALS: BP 104/67; TEMP 97.3; O2SAT 99
[2024-09-24 13:19] LABS: BASO % 0.2 % (0.0-1.0); EOS # 0.3 10^3/uL (0.0-0.5); EOS % 1.8 % (0.0-3.0); HEMATOCRIT 30.5 % (42.0-52.0); HEMOGLOBIN 9.6 g/dl (13.5-17.5); LYMPH # 1.2 10^3/uL (1.5-5.0); MEAN CORPUSCULAR HEMOGLOBIN 29.1 pg (27.0-33.0); MEAN CORPUSCULAR HGB CONC 31.5 g/dl (32.0-36.5); MEAN CORPUSCULAR VOLUME 92.4 fl (80.0-96.0); MONO % 6.6 % (2.0-8.0); NEUTROPHILS # 11.9 10^3/uL (1.5-8.5); NEUTROPHILS % 81.7 % (36.0-66.0); PLATELET COUNT, AUTOMATED 521 10^3/uL (150-450); WHITE BLOOD COUNT 14.5 10^3/uL (4.0-10.0)
[2024-09-24 13:29] LABS: ERYTHROCYTE SEDIMENTATION RATE > 130 mm/hr (0-20)
[2024-09-24 13:50] LABS: C REACTIVE PROTEIN QUANTITATIV 9.87 MG/DL (<1.0)
[2024-09-24 13:57] LABS: PROCALCITONIN 0.43 ng/ml
[2024-09-24 13:59] LABS: ALBUMIN 1.5 G/DL (3.2-5.2); ALKALINE PHOSPHATASE 161 U/L (40-129); ALT/SGPT 30 U/L (7.0-40); AST/SGOT 15 U/L (<34); BILIRUBIN,DIRECT < 0.1 MG/DL (<0.4); BILIRUBIN,TOTAL < 0.2 MG/DL (0.3-1.2); BLOOD UREA NITROGEN 14 MG/DL (9-23); CALCIUM LEVEL 8.3 MG/DL (8.3-10.6); CARBON DIOXIDE LEVEL 24 MMOL/L (20-31); CHLORIDE LEVEL 114 MMOL/L (98-107); GLOMERULAR FILTRATION RATE > 90.0 (>42); GLUCOSE, FASTING 94 MG/DL (74-106); POTASSIUM SERUM 6.1 MMOL/L (3.5-5.1); SODIUM LEVEL 145 MMOL/L (136-145); TOTAL PROTEIN 6.1 G/DL (5.7-8.2)
[2024-09-24] MEDS: PATIROMER SORBITEX CALCIUM 8.4GM POWDER PACKET PO ONE (14:30)
[2024-09-24 16:00] VITALS: BP 136/86; TEMP 97.4; O2SAT 97
[2024-09-24] MEDS: FUROSEMIDE 20MG/2ML VIAL IV ONE (16:04)
[2024-09-24 20:00] VITALS: BP 126/66; TEMP 98.2; O2SAT 96
[2024-09-24] MEDS: DOCUSATE SOD LIQ 100MG/10ML UDC PO SCH (21:44)
[2024-09-25 00:21] VITALS: BP 110/56; TEMP 97.9; O2SAT 97
[2024-09-25 03:47] VITALS: BP 126/69; TEMP 97.9; O2SAT 97
[2024-09-25 06:22] LABS: BASO % 0.2 % (0.0-1.0); EOS # 0.3 10^3/uL (0.0-0.5); EOS % 1.8 % (0.0-3.0); HEMATOCRIT 29.2 % (42.0-52.0); HEMOGLOBIN 9.3 g/dl (13.5-17.5); LYMPH # 1.7 10^3/uL (1.5-5.0); MEAN CORPUSCULAR HEMOGLOBIN 29.1 pg (27.0-33.0); MEAN CORPUSCULAR HGB CONC 31.8 g/dl (32.0-36.5); MEAN CORPUSCULAR VOLUME 91.3 fl (80.0-96.0); MONO # 1.3 10^3/uL (0.0-0.8); NEUTROPHILS # 12.8 10^3/uL (1.5-8.5); NEUTROPHILS % 77.3 % (36.0-66.0); WHITE BLOOD COUNT 16.5 10^3/uL (4.0-10.0)
[2024-09-25 06:23] LABS: PLATELET COUNT, AUTOMATED 646 10^3/uL (150-450)
[2024-09-25 06:47] LABS: ALBUMIN 1.6 G/DL (3.2-5.2); ALKALINE PHOSPHATASE 163 U/L (40-129); ALT/SGPT 32 U/L (7.0-40); AST/SGOT 17 U/L (<34); BILIRUBIN,DIRECT < 0.1 MG/DL (<0.4); BILIRUBIN,TOTAL < 0.2 MG/DL (0.3-1.2); BLOOD UREA NITROGEN 12 MG/DL (9-23); CALCIUM LEVEL 8.6 MG/DL (8.3-10.6); CARBON DIOXIDE LEVEL 25 MMOL/L (20-31); CHLORIDE LEVEL 110 MMOL/L (98-107); CREATININE FOR GFR 0.69 MG/DL (0.70-1.30); GLOMERULAR FILTRATION RATE > 90.0 (>42); GLUCOSE, FASTING 51 MG/DL (74-106); POTASSIUM SERUM 5.5 MMOL/L (3.5-5.1); SODIUM LEVEL 144 MMOL/L (136-145); TOTAL PROTEIN 6.4 G/DL (5.7-8.2)
[2024-09-25 07:58] VITALS: BP 123/77; TEMP 98.2; O2SAT 97
[2024-09-25] MEDS ORDERED: PATIROMER SORBITEX CALCIUM 8.4GM POWDER PACKET PO ONE (09:00)
[2024-09-25] MEDS: FUROSEMIDE 40MG/4ML VIAL IV ONE (09:29)
[2024-09-25 11:40] VITALS: BP 109/65; TEMP 98; O2SAT 97
[2024-09-25] MEDS: PATIROMER SORBITEX CALCIUM 8.4GM POWDER PACKET PO ONE (11:57)
[2024-09-25 16:34] VITALS: BP 115/68; TEMP 97.7; O2SAT 90
[2024-09-25 16:36] LABS: BLOOD UREA NITROGEN 12 MG/DL (9-23); CALCIUM LEVEL 7.9 MG/DL (8.3-10.6); CARBON DIOXIDE LEVEL 26 MMOL/L (20-31); CHLORIDE LEVEL 107 MMOL/L (98-107); GLOMERULAR FILTRATION RATE > 90.0 (>42); GLUCOSE, FASTING 167 MG/DL (74-106); POTASSIUM SERUM 5.1 MMOL/L (3.5-5.1); SODIUM LEVEL 140 MMOL/L (136-145)
[2024-09-25 20:39] VITALS: BP 115/71; TEMP 98.1; O2SAT 97
[2024-09-25] MEDS: LanTUS (INSULIN GLARGINE INJ) 1 UNITS/0.01 ML SC SCH (22:13)
[2024-09-26 01:02] VITALS: BP 113/68; TEMP 98.1; O2SAT 97
[2024-09-26 05:39] VITALS: BP 111/63; TEMP 97.3; O2SAT 97
[2024-09-26 07:53] VITALS: BP 138/72; TEMP 97.3; O2SAT 95
[2024-09-26 10:01] LABS: HEMATOCRIT 33.2 % (42.0-52.0); HEMOGLOBIN 10.2 g/dl (13.5-17.5); MEAN CORPUSCULAR HEMOGLOBIN 28.8 pg (27.0-33.0); MEAN CORPUSCULAR HGB CONC 30.7 g/dl (32.0-36.5); MEAN CORPUSCULAR VOLUME 93.8 fl (80.0-96.0); PLATELET COUNT, AUTOMATED 647 10^3/uL (150-450); RED BLOOD COUNT 3.54 10^6/uL (4.30-6.10); WHITE BLOOD COUNT 12.3 10^3/uL (4.0-10.0)
[2024-09-26 10:36] LABS: BLOOD UREA NITROGEN 12 MG/DL (9-23); CALCIUM LEVEL 8.8 MG/DL (8.3-10.6); CARBON DIOXIDE LEVEL 27 MMOL/L (20-31); CHLORIDE LEVEL 109 MMOL/L (98-107); CREATININE FOR GFR 0.74 MG/DL (0.70-1.30); GLOMERULAR FILTRATION RATE > 90.0 (>42); GLUCOSE, FASTING 153 MG/DL (74-106); POTASSIUM SERUM 5.6 MMOL/L (3.5-5.1); SODIUM LEVEL 142 MMOL/L (136-145)
[2024-09-26 11:49] VITALS: BP 131/70; TEMP 97.7; O2SAT 98
[2024-09-26] MEDS: NS (Normal Saline) 0.9% 1,000 ML IV ONE (12:24)
[2024-09-26] MEDS: PATIROMER SORBITEX CALCIUM 8.4GM POWDER PACKET PO ONE ×2 (12:36→17:06)
[2024-09-26] MEDS: FUROSEMIDE 40MG/4ML VIAL IV ONE ×2 (14:00→19:01)
[2024-09-26 16:20] LABS: BLOOD UREA NITROGEN 13 MG/DL (9-23); CALCIUM LEVEL 8.6 MG/DL (8.3-10.6); CARBON DIOXIDE LEVEL 28 MMOL/L (20-31); CHLORIDE LEVEL 110 MMOL/L (98-107); GLOMERULAR FILTRATION RATE > 90.0 (>42); GLUCOSE, FASTING 62 MG/DL (74-106); POTASSIUM SERUM 5.7 MMOL/L (3.5-5.1); SODIUM LEVEL 145 MMOL/L (136-145)
[2024-09-26 16:34] VITALS: BP 129/70; TEMP 97.7; O2SAT 96
[2024-09-26] MEDS ORDERED: PATIROMER SORBITEX CALCIUM 8.4GM POWDER PACKET PO SCH (18:30)
[2024-09-26] MEDS: PATIROMER SORBITEX CALCIUM 8.4GM POWDER PACKET PO SCH (19:00)
[2024-09-26] MEDS: ALBUTEROL SULFATE 2.5MG/0.5ML INH CONCENTRATE NEB SOLN NEB ONE (19:23)
[2024-09-26 19:42] VITALS: BP 131/70; TEMP 98.1; O2SAT 100
[2024-09-26] MEDS: LanTUS (INSULIN GLARGINE INJ) 1 UNITS/0.01 ML SC SCH (21:11)
[2024-09-26] MEDS: CEFDINIR 300 MG CAP PO SCH (21:12)
[2024-09-26 22:23] LABS: BLOOD UREA NITROGEN 15 MG/DL (9-23); CALCIUM LEVEL 8.4 MG/DL (8.3-10.6); CARBON DIOXIDE LEVEL 25 MMOL/L (20-31); CHLORIDE LEVEL 104 MMOL/L (98-107); CREATININE FOR GFR 0.78 MG/DL (0.70-1.30); GLOMERULAR FILTRATION RATE > 90.0 (>42); GLUCOSE, FASTING 342 MG/DL (74-106); POTASSIUM SERUM 5.3 MMOL/L (3.5-5.1); SODIUM LEVEL 138 MMOL/L (136-145)
[2024-09-27] VITALS (7 sets, daily range): BP systolic 94–129; BP diastolic 60–72; TEMP 97.5–98.1; O2SAT 96–99
[2024-09-27 00:14] LABS: APPEARANCE, URINE CLEAR (CLEAR); BACTERIA, URINE AUTO NEGATIVE (NEGATIVE); BILIRUBIN, URINE AUTO NEGATIVE (NEGATIVE); BLOOD, URINE BLOOD 3+ (NEGATIVE); COLOR, URINE STRAW (YELLOW); GLUCOSE, URINE (UA) AUTO 3+ mg/dL (NEGATIVE); KETONE, URINE AUTO NEGATIVE (NEGATIVE); LEUKOCYTE ESTERASE, URINE AUTO 1+ (NEGATIVE); NITRITE, URINE AUTO NEGATIVE (NEGATIVE); PROTEIN, URINE AUTO NEGATIVE (NEGATIVE); RBC, URINE AUTO 40 /HPF (0-3); SPECIFIC GRAVITY URINE AUTO 1.002 (1.002-1.035); SQUAMOUS EPITHELIAL CELL UR AU 0 /HPF (0-6); UROBILINOGEN, URINE AUTO 0.2 mg/dL (0.0-2.0); WBC, URINE AUTO 22 /HPF (0-3)
[2024-09-27 00:15] LABS: CREATININE,RANDOM URINE < 13.0 MG/DL
[2024-09-27 00:36] LABS: VENOUS BASE EXCESS 1.6 (-2.0-2.0); VENOUS HCO3 27.6 MMOL/L (23.0-27.0); VENOUS O2 SATURATION 81.7 % (60.0-80.0); VENOUS PARTIAL PRESSURE CO2 49.7 mmHg (38.0-50.0); VENOUS PARTIAL PRESSURE O2 49.3 mmHg (30.0-50.0); VENOUS PH 7.362 UNITS (7.330-7.430); VENOUS STANDARD HCO3 25.6 MMOL/L; VENOUS TOTAL CO2 29.1 MMOL/L (24.0-28.0)
[2024-09-27 00:42] LABS: BASO # 0.1 10^3/uL (0.0-0.2); BASO % 0.4 % (0.0-1.0); EOS # 0.3 10^3/uL (0.0-0.5); EOS % 2.2 % (0.0-3.0); HEMATOCRIT 30.5 % (42.0-52.0); HEMOGLOBIN 9.5 g/dl (13.5-17.5); LYMPH # 1.4 10^3/uL (1.5-5.0); LYMPH % 11.7 % (24.0-44.0); MEAN CORPUSCULAR HGB CONC 31.1 g/dl (32.0-36.5); MONO # 0.8 10^3/uL (0.0-0.8); MONO % 7.1 % (2.0-8.0); NEUTROPHILS # 8.9 10^3/uL (1.5-8.5); NEUTROPHILS % 76.5 % (36.0-66.0); PLATELET COUNT, AUTOMATED 710 10^3/uL (150-450); RED BLOOD COUNT 3.28 10^6/uL (4.30-6.10); WHITE BLOOD COUNT 11.6 10^3/uL (4.0-10.0)
[2024-09-27 01:04] LABS: ALBUMIN 1.6 G/DL (3.2-5.2); ALKALINE PHOSPHATASE 165 U/L (40-129); ALT/SGPT 26 U/L (7.0-40); AST/SGOT 12 U/L (<34); BILIRUBIN,DIRECT < 0.1 MG/DL (<0.4); BILIRUBIN,TOTAL < 0.2 MG/DL (0.3-1.2); CHOLESTEROL LEVEL 114 MG/DL (<200); CHOLESTEROL RISK RATIO 8.26 (<5); HDL CHOLESTEROL 13.8 MG/DL (>40); LDL CHOLESTEROL 51.4 MG/DL (<100); MAGNESIUM LEVEL 1.9 MG/DL (1.8-2.4); NON-HDL-C 100.2 MG/DL; TOTAL PROTEIN 6.6 G/DL (5.7-8.2); TRIGLYCERIDES LEVEL 244 MG/DL (<150)
[2024-09-27 06:34] LABS: HEMATOCRIT 30.2 % (42.0-52.0); HEMOGLOBIN 9.4 g/dl (13.5-17.5); MEAN CORPUSCULAR HEMOGLOBIN 28.7 pg (27.0-33.0); MEAN CORPUSCULAR HGB CONC 31.1 g/dl (32.0-36.5); MEAN CORPUSCULAR VOLUME 92.4 fl (80.0-96.0); PLATELET COUNT, AUTOMATED 729 10^3/uL (150-450); RED BLOOD COUNT 3.27 10^6/uL (4.30-6.10); WHITE BLOOD COUNT 11.6 10^3/uL (4.0-10.0)
[2024-09-27 07:02] LABS: BLOOD UREA NITROGEN 13 MG/DL (9-23); CALCIUM LEVEL 9.1 MG/DL (8.3-10.6); CARBON DIOXIDE LEVEL 26 MMOL/L (20-31); CHLORIDE LEVEL 107 MMOL/L (98-107); CREATININE FOR GFR 0.79 MG/DL (0.70-1.30); GLOMERULAR FILTRATION RATE > 90.0 (>42); GLUCOSE, FASTING 116 MG/DL (74-106); POTASSIUM SERUM 5.3 MMOL/L (3.5-5.1); SODIUM LEVEL 140 MMOL/L (136-145)
[2024-09-27] MEDS ORDERED: LanTUS (INSULIN GLARGINE INJ) 1 UNITS/0.01 ML SC SCH (09:00)
[2024-09-27] MEDS: LanTUS (INSULIN GLARGINE INJ) 1 UNITS/0.01 ML SC SCH (09:39)
[2024-09-27] MEDS ORDERED: LANTINJ4 SC (15:59)
[2024-09-27] MEDS ORDERED: VELT1POW PO (15:59)
[2024-09-27] MEDS ORDERED: CEFD300CAP PO (15:59)
[2024-09-27] MEDS: PATIROMER SORBITEX CALCIUM 8.4GM POWDER PACKET PO SCH (17:34)
[2024-09-28 00:06] VITALS: BP 101/66; TEMP 98.1; O2SAT 97
[2024-09-28 04:33] VITALS: BP 121/78; TEMP 97.7; O2SAT 98
[2024-09-28 06:09] LABS: HEMATOCRIT 31.3 % (42.0-52.0); HEMOGLOBIN 9.7 g/dl (13.5-17.5); MEAN CORPUSCULAR VOLUME 93.4 fl (80.0-96.0); PLATELET COUNT, AUTOMATED 794 10^3/uL (150-450); RED BLOOD COUNT 3.35 10^6/uL (4.30-6.10); WHITE BLOOD COUNT 10.5 10^3/uL (4.0-10.0)
[2024-09-28 06:42] LABS: ALBUMIN 1.7 G/DL (3.2-5.2); BILIRUBIN,TOTAL 0.2 MG/DL (0.3-1.2); CALCIUM LEVEL 9.3 MG/DL (8.3-10.6); CREATININE FOR GFR 1.01 MG/DL (0.70-1.30); GLOMERULAR FILTRATION RATE 79.5 (>42); POTASSIUM SERUM 5.4 MMOL/L (3.5-5.1)
[2024-09-28 07:49] VITALS: BP 111/69; TEMP 97.5; O2SAT 98
== END 2024-09-28 13:39 | disposition home health service (06) | DRG 871 ==
LOC: EDBD 18:21 → M ED 18:21 → M ED INP 09-16 01:13 → EEVIPCON 09-16 01:13 → M PCU 09-16 03:08 → M MSPAV 09-25 00:17
PROVIDERS: ADMIT Student in an Organized Health Care Education/Training Program; ATTEND Internal Medicine
PROC: B246ZZZ Ultrasonography of Right and Left Heart (ICD-10-PCS; principal; 2024-09-23)
DX: A41.51 Sepsis due to Escherichia coli [E. coli] (principal); J18.9 Pneumonia, unspecified organism; G93.41 Metabolic encephalopathy; K72.00 Acute and subacute hepatic failure without coma; N12 Tubulo-interstitial nephritis, not specified as acute or chronic; N17.9 Acute kidney failure, unspecified; E87.20 Acidosis, unspecified; I69.354 Hemiplegia and hemiparesis following cerebral infarction affecting left non-dominant side; K55.1 Chronic vascular disorders of intestine; N13.30 Unspecified hydronephrosis; E87.0 Hyperosmolality and hypernatremia; E46 Unspecified protein-calorie malnutrition; J90 Pleural effusion, not elsewhere classified; B96.20 Unspecified Escherichia coli [E. coli] as the cause of diseases classified elsewhere; I25.10 Atherosclerotic heart disease of native coronary artery without angina pectoris; I10 Essential (primary) hypertension; E11.649 Type 2 diabetes mellitus with hypoglycemia without coma; R13.10 Dysphagia, unspecified; K59.00 Constipation, unspecified; E11.51 Type 2 diabetes mellitus with diabetic peripheral angiopathy without gangrene; I73.9 Peripheral vascular disease, unspecified; I69.328 Other speech and language deficits following cerebral infarction; L89.151 Pressure ulcer of sacral region, stage 1; E78.5 Hyperlipidemia, unspecified; F31.9 Bipolar disorder, unspecified; F03.90 Unspecified dementia, unspecified severity, without behavioral disturbance, psychotic disturbance, mood disturbance, and anxiety; Z87.891 Personal history of nicotine dependence; Z89.511 Acquired absence of right leg below knee; Z89.512 Acquired absence of left leg below knee; Z79.82 Long term (current) use of aspirin; Z79.4 Long term (current) use of insulin; Z79.84 Long term (current) use of oral hypoglycemic drugs; Z79.899 Other long term (current) drug therapy; E87.5 Hyperkalemia; D64.9 Anemia, unspecified; R33.9 Retention of urine, unspecified

== ENCOUNTER 2025-01-28 12:26 | Inpatient (IN) | payer OTHER, MEDICAID ==
[~2025-01-28] VITALS: Ht 172.7 cm; Wt 53.1 kg
[~2025-01-28 12:26] MED LIST changes: +BUPR-69 PO; +CEFD300CAP PO; +DONE5TAB82 PO; -EZET10TA21 PO; +EZET10TA57 PO; +HYDR12.510 PO; -HYDR12CA PO; +LISI40TA10 PO; -LISI40TA4 PO; +VELT1POW PO
[2025-01-28] MEDS: LIDOCAINE 2% 5 ML JELLY UROJET TOP ONE (13:40)
[2025-01-28 13:47] LABS: BASO # 0.0 10^3/uL (0.0-0.2); BASO % 0.2 % (0.0-1.0); EOS # 0.1 10^3/uL (0.0-0.5); EOS % 0.7 % (0.0-3.0); LYMPH # 1.1 10^3/uL (1.5-5.0); LYMPH % 9.4 % (24.0-44.0); MONO # 0.9 10^3/uL (0.0-0.8); MONO % 7.3 % (2.0-8.0); NEUTROPHILS # 9.5 10^3/uL (1.5-8.5); NEUTROPHILS % 81.9 % (36.0-66.0); PLATELET COUNT, AUTOMATED 300 10^3/uL (150-450)
[2025-01-28 14:05] LABS: APPEARANCE, URINE CLOUDY (CLEAR); BACTERIA, URINE AUTO 1+ (NEGATIVE); BILIRUBIN, URINE AUTO NEGATIVE (NEGATIVE); BLOOD, URINE BLOOD 3+ (NEGATIVE); GLUCOSE, URINE (UA) AUTO 3+ mg/dL (NEGATIVE); KETONE, URINE AUTO NEGATIVE (NEGATIVE); LEUKOCYTE ESTERASE, URINE AUTO 3+ (NEGATIVE); NITRITE, URINE AUTO NEGATIVE (NEGATIVE); PROTEIN, URINE AUTO 1+ mg/dL (NEGATIVE); RBC, URINE AUTO 141 /HPF (0-3); SPECIFIC GRAVITY URINE AUTO 1.015 (1.002-1.035); SQUAMOUS EPITHELIAL CELL UR AU 0 /HPF (0-6); UROBILINOGEN, URINE AUTO 0.2 mg/dL (0.0-2.0); WBC, URINE AUTO TNTC /HPF (0-3)
[2025-01-28 14:13] LABS: ALT/SGPT 108 U/L (7.0-40); AST/SGOT 151 U/L (<34); CALCIUM LEVEL 8.9 MG/DL (8.3-10.6); CARBON DIOXIDE LEVEL 23 MMOL/L (20-31); CHLORIDE LEVEL 112 MMOL/L (98-107); CREATININE FOR GFR 0.61 MG/DL (0.70-1.30); GLOMERULAR FILTRATION RATE > 90.0 (>42); POTASSIUM SERUM 3.8 MMOL/L (3.5-5.1); SODIUM LEVEL 148 MMOL/L (136-145)
[2025-01-28 14:36] LABS: C REACTIVE PROTEIN QUANTITATIV 20.13 MG/DL (<1.0)
[2025-01-28] MEDS ORDERED: POLY17PO10 PO (14:45)
[2025-01-28] MEDS ORDERED: MULTLIQ7 PO (14:45)
[2025-01-28] MEDS ORDERED: OMEP40CA5 PO (14:45)
[2025-01-28] MEDS ORDERED: HOME MED LIST COMPLETE! XX SCH (14:45)
[2025-01-28] MEDS: cefTRIAXone SOD 1 GM in DEXTROSE 5% (D5W) ADV/MINI-BAG 50 ML IV ONE ×2 (14:52→17:17)
[2025-01-28] MEDS: [UNRECOGNIZED DRUG - OTHER] IV ONE (14:58)
[2025-01-28] MEDS: NS 0.9% IV ONE (14:58)
[2025-01-28] MEDS: AZITHROMYCIN INJ 500 MG, VIAL MATE ADAPTER 1 EACH in NS 250 ML IV ONE (15:18)
[2025-01-28] MEDS: BENZONATATE 100 MG CAPSULE PO SCH (16:00)
[2025-01-28] MEDS: ENOXAPARIN 40 MG/0.4 ML SYRINGE (J1650 PER 10MG) SC ONE (17:17)
[2025-01-28] MEDS ORDERED: ONDANSETRON 4MG 2ML VIAL IV PRN (18:40)
[2025-01-28] MEDS ORDERED: GLUCOSE 4 GM CHEW PO PRN (18:40)
[2025-01-28] MEDS: guaiFENesin ER TABLET 600 MG TAB PO ONE (18:40)
[2025-01-28] MEDS ORDERED: DEXTROSE 50% 50 ML SYRINGE IV PRN (18:40)
[2025-01-28] MEDS ORDERED: GLUCAGON INJ 1 MG VIAL SC PRN (18:40)
[2025-01-28 19:44] VITALS: BP 143/79; TEMP 98.4; O2SAT 95
[2025-01-28] MEDS: LanTUS (INSULIN GLARGINE INJ) 1 UNITS/0.01 ML SC SCH (21:00)
[2025-01-28] MEDS: INSULIN LISPRO (NovoLOG) PER UNIT SC SCH (21:00)
[2025-01-28] MEDS: EZETIMIBE 10 MG TABLET PO SCH (21:45)
[2025-01-28] MEDS: ATORVASTATIN 20 MG TAB PO SCH (21:45)
[2025-01-28] MEDS: DIVALPROEX 500 MG *ER* TAB PO SCH (21:45)
[2025-01-29 05:29] VITALS: BP 116/73; TEMP 103.8; O2SAT 94
[2025-01-29] MEDS: ACETAMINOPHEN 325 MG TAB PO PRN (06:03)
[2025-01-29] MEDS ORDERED: VANCOMYCIN HCL 1,000 MG in IV FLUID PLACE HOLDER 1 EA IV SCH (07:05)
[2025-01-29] MEDS: INSULIN LISPRO (NovoLOG) PER UNIT SC SCH (07:30)
[2025-01-29 08:00] VITALS: TEMP 98.8
[2025-01-29] MEDS: CEFEPIME HCL 2 GM in DEXTROSE 5% (D5W) ADV/MINI-BAG 50 ML IV SCH (08:08)
[2025-01-29] MEDS: MIRALAX *UNIT DOSE* 17 GM PACKET PO SCH (08:09)
[2025-01-29] MEDS: DONEPEZIL 5 MG TAB PO SCH (08:10)
[2025-01-29] MEDS: CLOPIDOGREL 75 MG TAB PO SCH (08:10)
[2025-01-29] MEDS: guaiFENesin ER TABLET 600 MG TAB PO SCH (08:10)
[2025-01-29] MEDS: ENOXAPARIN 40 MG/0.4 ML SYRINGE (J1650 PER 10MG) SC SCH (08:10)
[2025-01-29] MEDS: ASPIRIN 81 MG ENTERIC TABLET PO SCH (08:10)
[2025-01-29] MEDS: VANCOMYCIN HCL 1,000 MG, VIAL MATE ADAPTER 1 EACH in NS 250 ML IV ONE (08:58)
[2025-01-29] MEDS ORDERED: DOXYCYCLINE HYCLATE 100 MG TABLET PO SCH (09:00)
[2025-01-29 10:04] LABS: BASO # 0.0 10^3/uL (0.0-0.2); BASO % 0.2 % (0.0-1.0); EOS # 0.0 10^3/uL (0.0-0.5); EOS % 0.3 % (0.0-3.0); LYMPH # 1.6 10^3/uL (1.5-5.0); LYMPH % 10.5 % (24.0-44.0); MONO # 1.3 10^3/uL (0.0-0.8); MONO % 8.7 % (2.0-8.0); NEUTROPHILS # 12.0 10^3/uL (1.5-8.5); NEUTROPHILS % 79.9 % (36.0-66.0); PLATELET COUNT, AUTOMATED 292 10^3/uL (150-450)
[2025-01-29 10:08] LABS: ERYTHROCYTE SEDIMENTATION RATE 123 mm/hr (0-20)
[2025-01-29 10:58] LABS: ALT/SGPT 103 U/L (7.0-40); AST/SGOT 97 U/L (<34); C REACTIVE PROTEIN QUANTITATIV 16.85 MG/DL (<1.0); CALCIUM LEVEL 8.2 MG/DL (8.3-10.6); CARBON DIOXIDE LEVEL 23 MMOL/L (20-31); CHLORIDE LEVEL 114 MMOL/L (98-107); CREATININE FOR GFR 0.66 MG/DL (0.70-1.30); GLOMERULAR FILTRATION RATE > 90.0 (>42); POTASSIUM SERUM 3.3 MMOL/L (3.5-5.1); SODIUM LEVEL 150 MMOL/L (136-145)
[2025-01-29 14:00] VITALS: BP 145/76; TEMP 98.2; O2SAT 92
[2025-01-29] MEDS: NS 0.45% 1,000 ML IV ONE (14:46)
[2025-01-29] MEDS: POTASSIUM CHLORIDE 10% LIQ 20MEQ/15ML UDC PO ONE (14:55)
[2025-01-29] MEDS: NS 0.45% 1,000 ML IV SCH (14:56)
[2025-01-29] MEDS ORDERED: cefTRIAXone SOD 2 GM in DEXTROSE 5% (D5W) ADV/MINI-BAG 50 ML IV SCH (15:00)
[2025-01-29 15:44] LABS: HEPATITIS C VIRUS ABY INDEX < 0.02 INDEX (<0.8)
[2025-01-29] MEDS: VANCOMYCIN HCL 750 MG, VIAL MATE ADAPTER 1 EACH in NS 250 ML IV SCH (17:32)
[2025-01-29 21:55] VITALS: BP 123/83; TEMP 98.8; O2SAT 88
[2025-01-29 22:52] LABS: CALCIUM LEVEL 7.7 MG/DL (8.3-10.6); CARBON DIOXIDE LEVEL 23 MMOL/L (20-31); CHLORIDE LEVEL 113 MMOL/L (98-107); CREATININE FOR GFR 0.63 MG/DL (0.70-1.30); GLOMERULAR FILTRATION RATE > 90.0 (>42); POTASSIUM SERUM 4.6 MMOL/L (3.5-5.1); SODIUM LEVEL 142 MMOL/L (136-145)
[2025-01-30 03:07] LABS: BASO # 0.0 10^3/uL (0.0-0.2); BASO % 0.2 % (0.0-1.0); EOS # 0.2 10^3/uL (0.0-0.5); EOS % 1.4 % (0.0-3.0); LYMPH # 1.0 10^3/uL (1.5-5.0); LYMPH % 7.2 % (24.0-44.0); MONO # 1.0 10^3/uL (0.0-0.8); MONO % 6.8 % (2.0-8.0); NEUTROPHILS # 11.7 10^3/uL (1.5-8.5); NEUTROPHILS % 83.5 % (36.0-66.0); PLATELET COUNT, AUTOMATED 298 10^3/uL (150-450)
[2025-01-30 05:09] LABS: CALCIUM LEVEL 8.2 MG/DL (8.3-10.6); CARBON DIOXIDE LEVEL 21 MMOL/L (20-31); CHLORIDE LEVEL 118 MMOL/L (98-107); CREATININE FOR GFR 0.63 MG/DL (0.70-1.30); GLOMERULAR FILTRATION RATE > 90.0 (>42); POTASSIUM SERUM 4.4 MMOL/L (3.5-5.1); SODIUM LEVEL 150 MMOL/L (136-145)
[2025-01-30 06:58] VITALS: BP 125/77; TEMP 99.1; O2SAT 94
[2025-01-30] MEDS: POTASSIUM CHLORIDE 10% LIQ 20MEQ/15ML UDC PO SCH (08:05)
[2025-01-30 09:48] LABS: CALCIUM LEVEL 8.2 MG/DL (8.3-10.6); CARBON DIOXIDE LEVEL 21 MMOL/L (20-31); CHLORIDE LEVEL 121 MMOL/L (98-107); CREATININE FOR GFR 0.62 MG/DL (0.70-1.30); GLOMERULAR FILTRATION RATE > 90.0 (>42); POTASSIUM SERUM 4.0 MMOL/L (3.5-5.1); SODIUM LEVEL 147 MMOL/L (136-145)
[2025-01-30 14:00] VITALS: BP 127/79; TEMP 98.4; O2SAT 97
[2025-01-30 22:00] VITALS: BP 141/111; TEMP 98.6; O2SAT 94
[2025-01-31 05:37] LABS: BASO # 0.1 10^3/uL (0.0-0.2); BASO % 0.3 % (0.0-1.0); EOS # 0.4 10^3/uL (0.0-0.5); EOS % 2.8 % (0.0-3.0); LYMPH # 1.0 10^3/uL (1.5-5.0); LYMPH % 6.4 % (24.0-44.0); MONO # 1.1 10^3/uL (0.0-0.8); MONO % 7.6 % (2.0-8.0); NEUTROPHILS # 11.8 10^3/uL (1.5-8.5); NEUTROPHILS % 79.9 % (36.0-66.0); PLATELET COUNT, AUTOMATED 300 10^3/uL (150-450)
[2025-01-31 06:02] LABS: CALCIUM LEVEL 8.1 MG/DL (8.3-10.6); CARBON DIOXIDE LEVEL 20 MMOL/L (20-31); CHLORIDE LEVEL 117 MMOL/L (98-107); CREATININE FOR GFR 0.56 MG/DL (0.70-1.30); GLOMERULAR FILTRATION RATE > 90.0 (>42); POTASSIUM SERUM 3.9 MMOL/L (3.5-5.1); SODIUM LEVEL 144 MMOL/L (136-145)
[2025-01-31 06:20] VITALS: BP 136/79; TEMP 98.1; O2SAT 95
[2025-01-31 14:00] VITALS: BP 136/80; TEMP 98.2; O2SAT 96
[2025-01-31] MEDS: CEFPODOXIME PROXETIL 200 MG TABLET PO SCH (19:51)
[2025-01-31 21:35] VITALS: BP 136/80; TEMP 98.6; O2SAT 96
[2025-02-01 06:19] VITALS: BP 94/64; TEMP 99; O2SAT 92
[2025-02-01 08:03] LABS: CALCIUM LEVEL 8.6 MG/DL (8.3-10.6); CARBON DIOXIDE LEVEL 17 MMOL/L (20-31); CHLORIDE LEVEL 116 MMOL/L (98-107); CREATININE FOR GFR 0.79 MG/DL (0.70-1.30); GLOMERULAR FILTRATION RATE > 90.0 (>42); POTASSIUM SERUM 3.9 MMOL/L (3.5-5.1); SODIUM LEVEL 144 MMOL/L (136-145)
[2025-02-01 08:05] LABS: PLATELET COUNT, AUTOMATED 409 10^3/uL (150-450)
[2025-02-01 08:36] LABS: LYMPHOCYTES 4 % (16-44); MONOCYTES 12 % (0-5); NEUTROPHILS 76 % (28-66)
[2025-02-01 08:37] LABS: PLATELET ESTIMATE NORMAL (NORMAL)
[2025-02-01] MEDS: SODIUM BICARBONATE 325 MG TAB PO SCH (09:23)
[2025-02-01 16:08] LABS: C REACTIVE PROTEIN QUANTITATIV 15.33 MG/DL (<1.0)
[2025-02-01 16:17] LABS: ERYTHROCYTE SEDIMENTATION RATE 125 mm/hr (0-20)
[2025-02-01 21:17] VITALS: BP 100/66; TEMP 97.5; O2SAT 93
[2025-02-01 22:07] LABS: MYCOPLASMA PNEUMONIAE IGG 1.33 (<=0.90); MYCOPLASMA PNEUMONIAE IGM 111.0 U/mL (<770)
[2025-02-02] VITALS (7 sets, daily range): BP systolic 111–116; BP diastolic 62–67; TEMP 97–98.1; O2SAT 87–96
[2025-02-02 11:12] LABS: BASO # 0.1 10^3/uL (0.0-0.2); BASO % 0.3 % (0.0-1.0); EOS # 0.0 10^3/uL (0.0-0.5); EOS % 0.1 % (0.0-3.0); LYMPH # 1.4 10^3/uL (1.5-5.0); LYMPH % 4.5 % (24.0-44.0); MONO # 1.2 10^3/uL (0.0-0.8); MONO % 4.0 % (2.0-8.0); NEUTROPHILS # 27.7 10^3/uL (1.5-8.5); NEUTROPHILS % 89.5 % (36.0-66.0); PLATELET COUNT, AUTOMATED 482 10^3/uL (150-450)
[2025-02-02 11:29] LABS: ERYTHROCYTE SEDIMENTATION RATE > 130 mm/hr (0-20)
[2025-02-02 11:48] LABS: C REACTIVE PROTEIN QUANTITATIV 20.07 MG/DL (<1.0); CALCIUM LEVEL 9.0 MG/DL (8.3-10.6); CARBON DIOXIDE LEVEL 21 MMOL/L (20-31); CHLORIDE LEVEL 121 MMOL/L (98-107); CREATININE FOR GFR 0.78 MG/DL (0.70-1.30); GLOMERULAR FILTRATION RATE > 90.0 (>42); POTASSIUM SERUM 5.1 MMOL/L (3.5-5.1); SODIUM LEVEL 152 MMOL/L (136-145)
[2025-02-02] MEDS: metroNIDAZOLE 500 MG in IV 1 EA IV SCH (14:34)
[2025-02-03 05:49] VITALS: BP 124/72; TEMP 97.5; O2SAT 91
[2025-02-03 10:04] LABS: BASO # 0.1 10^3/uL (0.0-0.2); BASO % 0.5 % (0.0-1.0); EOS # 0.2 10^3/uL (0.0-0.5); EOS % 0.7 % (0.0-3.0); LYMPH # 1.6 10^3/uL (1.5-5.0); LYMPH % 6.7 % (24.0-44.0); MONO # 0.8 10^3/uL (0.0-0.8); MONO % 3.3 % (2.0-8.0); NEUTROPHILS # 20.3 10^3/uL (1.5-8.5); NEUTROPHILS % 86.4 % (36.0-66.0); PLATELET COUNT, AUTOMATED 485 10^3/uL (150-450)
[2025-02-03 10:11] LABS: ERYTHROCYTE SEDIMENTATION RATE > 130 mm/hr (0-20)
[2025-02-03 10:26] LABS: C REACTIVE PROTEIN QUANTITATIV 8.90 MG/DL (<1.0); CALCIUM LEVEL 8.9 MG/DL (8.3-10.6); CARBON DIOXIDE LEVEL 21 MMOL/L (20-31); CHLORIDE LEVEL 121 MMOL/L (98-107); CREATININE FOR GFR 0.60 MG/DL (0.70-1.30); GLOMERULAR FILTRATION RATE > 90.0 (>42); POTASSIUM SERUM 5.1 MMOL/L (3.5-5.1); SODIUM LEVEL 153 MMOL/L (136-145)
[2025-02-03 14:00] VITALS: BP 136/79; TEMP 97.5; O2SAT 95
[2025-02-03] MEDS: NS 0.45% 1,000 ML IV ONE (14:16)
[2025-02-03] MEDS: NS 0.45% 1,000 ML IV SCH (18:15)
[2025-02-03 19:05] LABS: CALCIUM LEVEL 8.7 MG/DL (8.3-10.6); CARBON DIOXIDE LEVEL 18 MMOL/L (20-31); CHLORIDE LEVEL 115 MMOL/L (98-107); CREATININE FOR GFR 0.62 MG/DL (0.70-1.30); GLOMERULAR FILTRATION RATE > 90.0 (>42); POTASSIUM SERUM 5.5 MMOL/L (3.5-5.1); SODIUM LEVEL 144 MMOL/L (136-145)
[2025-02-03 20:17] VITALS: BP 107/65; TEMP 101.8; O2SAT 93
[2025-02-03] MEDS: LanTUS (INSULIN GLARGINE INJ) 1 UNITS/0.01 ML SC SCH (20:36)
[2025-02-03 22:30] LABS: CALCIUM LEVEL 8.4 MG/DL (8.3-10.6); CARBON DIOXIDE LEVEL 24 MMOL/L (20-31); CHLORIDE LEVEL 115 MMOL/L (98-107); CREATININE FOR GFR 0.60 MG/DL (0.70-1.30); GLOMERULAR FILTRATION RATE > 90.0 (>42); POTASSIUM SERUM 4.2 MMOL/L (3.5-5.1); SODIUM LEVEL 145 MMOL/L (136-145)
[2025-02-04] VITALS (9 sets, daily range): BP systolic 90–170; BP diastolic 50–80; TEMP 97.3–102.6; O2SAT 89–96
[2025-02-04 04:56] LABS: PLATELET COUNT, AUTOMATED 477 10^3/uL (150-450)
[2025-02-04 05:02] LABS: CALCIUM LEVEL 8.2 MG/DL (8.3-10.6); CARBON DIOXIDE LEVEL 24 MMOL/L (20-31); CHLORIDE LEVEL 114 MMOL/L (98-107); CREATININE FOR GFR 0.59 MG/DL (0.70-1.30); GLOMERULAR FILTRATION RATE > 90.0 (>42); POTASSIUM SERUM 4.7 MMOL/L (3.5-5.1); SODIUM LEVEL 146 MMOL/L (136-145)
[2025-02-04 06:17] LABS: LYMPHOCYTES 10 % (16-44); MONOCYTES 6 % (0-5); NEUTROPHILS 72 % (28-66); PLASMA CELL 1 % (0-0)
[2025-02-04 06:18] LABS: PLATELET ESTIMATE INCREASED (NORMAL)
[2025-02-04 06:20] LABS: PLATELET CLUMPS SMALL AMT
[2025-02-04] MEDS ORDERED: IPRATROPIUM 0.5 MG/ALBUTEROL 2.5 MG INH SOL UD 3 ML NEB PRN (11:00)
[2025-02-04] MEDS: NS 0.45% 1,000 ML IV SCH ×2 (11:51→18:01)
[2025-02-04 11:59] LABS: CALCIUM LEVEL 8.0 MG/DL (8.3-10.6); CARBON DIOXIDE LEVEL 22 MMOL/L (20-31); CHLORIDE LEVEL 116 MMOL/L (98-107); CREATININE FOR GFR 0.52 MG/DL (0.70-1.30); GLOMERULAR FILTRATION RATE > 90.0 (>42); POTASSIUM SERUM 4.7 MMOL/L (3.5-5.1); SODIUM LEVEL 142 MMOL/L (136-145)
[2025-02-04] MEDS: cefTRIAXone SOD 2 GM in DEXTROSE 5% (D5W) ADV/MINI-BAG 50 ML IV SCH (12:25)
[2025-02-04] MEDS: IPRATROPIUM 0.5 MG/ALBUTEROL 2.5 MG INH SOL UD 3 ML NEB PRN (16:22)
[2025-02-04] MEDS: INSULIN LISPRO (NovoLOG) PER UNIT SC SCH ×2 (17:30→18:02)
[2025-02-04] MEDS: IBUPROFEN 400 MG TAB PO ONE (18:51)
[2025-02-04 19:24] LABS: CALCIUM LEVEL 7.6 MG/DL (8.3-10.6); CARBON DIOXIDE LEVEL 22 MMOL/L (20-31); CHLORIDE LEVEL 113 MMOL/L (98-107); CREATININE FOR GFR 0.63 MG/DL (0.70-1.30); GLOMERULAR FILTRATION RATE > 90.0 (>42); POTASSIUM SERUM 4.5 MMOL/L (3.5-5.1); SODIUM LEVEL 144 MMOL/L (136-145)
[2025-02-04] MEDS ORDERED: PIPERACILLIN/TAZOBACTAM SOD 4.5 GM in DEXTROSE 5% (D5W) ADV/MINI-BAG 50 ML IV SCH (19:45)
[2025-02-04] MEDS ORDERED: ISOVUE-370 76% 100 ML VIAL As Ordered ONE (20:02)
[2025-02-04] MEDS: PIPERACILLIN/TAZOBACTAM SOD 4.5 GM in DEXTROSE 5% (D5W) ADV/MINI-BAG 50 ML IV SCH (20:11)
[2025-02-04] MEDS: LR 1,000 ML IV ONE (20:11)
[2025-02-04] MEDS: LanTUS (INSULIN GLARGINE INJ) 1 UNITS/0.01 ML SC SCH (20:50)
[2025-02-04] MEDS: VANCOMYCIN HCL 1,000 MG, VIAL MATE ADAPTER 1 EACH in NS 250 ML IV SCH (21:03)
[2025-02-04] MEDS: LR 1,000 ML IV SCH (21:04)
[2025-02-04 21:38] LABS: KETONE, URINE AUTO RFX NEGATIVE (NEGATIVE); NITRITE, URINE AUTO RFX NEGATIVE (NEGATIVE); RBC, URINE AUTO RFX 4 /HPF (0-3); SQUAM EPITHELIAL CELL UR AURFX 0 /HPF (0-6); WBC, URINE AUTO RFX 5 /HPF (0-3)
[2025-02-04 21:41] LABS: LEUKOCYTE ESTERASE UR AUTO RFX TRACE (NEGATIVE)
[2025-02-04 22:52] LABS: BASO # 0.1 10^3/uL (0.0-0.2); BASO % 0.3 % (0.0-1.0); EOS # 0.4 10^3/uL (0.0-0.5); EOS % 2.0 % (0.0-3.0); LYMPH # 1.2 10^3/uL (1.5-5.0); LYMPH % 6.6 % (24.0-44.0); MONO # 0.8 10^3/uL (0.0-0.8); MONO % 4.4 % (2.0-8.0); NEUTROPHILS # 16.1 10^3/uL (1.5-8.5); NEUTROPHILS % 85.3 % (36.0-66.0); PLATELET COUNT, AUTOMATED 439 10^3/uL (150-450)
[2025-02-04 23:21] LABS: ALT/SGPT 73 U/L (7.0-40); AST/SGOT 61 U/L (<34); CALCIUM LEVEL 7.6 MG/DL (8.3-10.6); CARBON DIOXIDE LEVEL 22 MMOL/L (20-31); CHLORIDE LEVEL 113 MMOL/L (98-107); CREATININE FOR GFR 0.61 MG/DL (0.70-1.30); GLOMERULAR FILTRATION RATE > 90.0 (>42); POTASSIUM SERUM 4.2 MMOL/L (3.5-5.1); SODIUM LEVEL 144 MMOL/L (136-145)
[2025-02-04] MEDS: BISACODYL 10 MG SUPP PR SCH (23:41)
[2025-02-05 03:01] VITALS: BP 110/64; TEMP 97.3; O2SAT 93
[2025-02-05 08:42] VITALS: BP 129/61; TEMP 97.7; O2SAT 95
[2025-02-05] MEDS ORDERED: FLEET ENEMA PR PRN (11:10)
[2025-02-05 12:44] VITALS: BP 150/70; TEMP 97.6; O2SAT 92
[2025-02-05 18:25] VITALS: BP 156/83
[2025-02-05 20:00] VITALS: TEMP 99.1; O2SAT 90
[2025-02-06 03:35] VITALS: BP 102/54; TEMP 97.4; O2SAT 91
[2025-02-06 07:50] VITALS: BP 116/59; TEMP 97.6; O2SAT 93
[2025-02-06 08:06] LABS: BASO # 0.0 10^3/uL (0.0-0.2); BASO % 0.3 % (0.0-1.0); EOS # 0.5 10^3/uL (0.0-0.5); EOS % 2.9 % (0.0-3.0); LYMPH # 1.7 10^3/uL (1.5-5.0); LYMPH % 10.4 % (24.0-44.0); MONO # 0.9 10^3/uL (0.0-0.8); MONO % 5.4 % (2.0-8.0); NEUTROPHILS # 12.5 10^3/uL (1.5-8.5); NEUTROPHILS % 78.2 % (36.0-66.0); PLATELET COUNT, AUTOMATED 479 10^3/uL (150-450)
[2025-02-06 08:19] LABS: CALCIUM LEVEL 8.0 MG/DL (8.3-10.6); CARBON DIOXIDE LEVEL 26 MMOL/L (20-31); CHLORIDE LEVEL 115 MMOL/L (98-107); CREATININE FOR GFR 0.67 MG/DL (0.70-1.30); GLOMERULAR FILTRATION RATE > 90.0 (>42); POTASSIUM SERUM 3.8 MMOL/L (3.5-5.1); SODIUM LEVEL 149 MMOL/L (136-145)
[2025-02-06 08:59] LABS: VANCOMYCIN LEVEL TROUGH 20.6 UG/ML (10.0-20.0)
[2025-02-06 11:58] VITALS: BP 96/55; TEMP 97.8; O2SAT 93
[2025-02-06] MEDS ORDERED: VANCOMYCIN HCL 1,250 MG, VIAL MATE ADAPTER 1 EACH in NS 250 ML IV SCH (12:00)
[2025-02-06] MEDS: VANCOMYCIN HCL 1,000 MG, VIAL MATE ADAPTER 1 EACH in NS 250 ML IV SCH (15:03)
[2025-02-06] MEDS: PIPERACILLIN/TAZOBACTAM SOD 4.5 GM in DEXTROSE 5% (D5W) ADV/MINI-BAG 50 ML IV SCH (17:10)
[2025-02-06 19:52] VITALS: BP 123/64; TEMP 98; O2SAT 92
[2025-02-06 22:00] VITALS: BP 122/76; TEMP 101.6; O2SAT 91
[2025-02-06 23:21] LABS: VENOUS BASE EXCESS 0.3 (-2.0-2.0); VENOUS HCO3 25.0 MMOL/L (23.0-27.0); VENOUS O2 SATURATION 81.2 % (60.0-80.0); VENOUS PARTIAL PRESSURE CO2 40.7 mmHg (38.0-50.0); VENOUS PARTIAL PRESSURE O2 46.1 mmHg (30.0-50.0); VENOUS PH 7.406 UNITS (7.330-7.430); VENOUS STANDARD HCO3 24.4 MMOL/L; VENOUS TOTAL CO2 26.2 MMOL/L (24.0-28.0)
[2025-02-06] MEDS: D5W 1,000 ML IV SCH (23:51)
[2025-02-07] VITALS (8 sets, daily range): BP systolic 99–135; BP diastolic 58–68; TEMP 97.5–102.7; O2SAT 89–97
[2025-02-07 08:55] LABS: CALCIUM LEVEL 7.9 MG/DL (8.3-10.6); CARBON DIOXIDE LEVEL 26 MMOL/L (20-31); CHLORIDE LEVEL 113 MMOL/L (98-107); CREATININE FOR GFR 0.70 MG/DL (0.70-1.30); GLOMERULAR FILTRATION RATE > 90.0 (>42); POTASSIUM SERUM 4.3 MMOL/L (3.5-5.1); SODIUM LEVEL 145 MMOL/L (136-145)
[2025-02-07] MEDS ORDERED: E-Z-PAQUE 96% w/w SUSP 176 GM BTL As Ordered ONE (10:43)
[2025-02-07] MEDS ORDERED: BARIUM SULFATE 700 MG TABLET As Ordered ONE (10:43)
[2025-02-07] MEDS ORDERED: VARIBAR PUDDING 40% w/v 230ML TUBE As Ordered ONE (10:43)
[2025-02-07] MEDS ORDERED: VARIBAR NECTAR 40% w/v 240ML SUSP BTL As Ordered ONE (10:44)
[2025-02-07 11:09] LABS: BASO # 0.0 10^3/uL (0.0-0.2); BASO % 0.2 % (0.0-1.0); EOS # 0.3 10^3/uL (0.0-0.5); EOS % 2.0 % (0.0-3.0); LYMPH # 1.6 10^3/uL (1.5-5.0); LYMPH % 11.8 % (24.0-44.0); MONO # 0.8 10^3/uL (0.0-0.8); MONO % 5.8 % (2.0-8.0); NEUTROPHILS # 10.4 10^3/uL (1.5-8.5); NEUTROPHILS % 78.8 % (36.0-66.0); PLATELET COUNT, AUTOMATED 528 10^3/uL (150-450)
[2025-02-07 12:23] LABS: VANCOMYCIN RANDOM 14.9 UG/ML
[2025-02-07 12:24] LABS: CALCIUM LEVEL 8.0 MG/DL (8.3-10.6); CARBON DIOXIDE LEVEL 25 MMOL/L (20-31); CHLORIDE LEVEL 112 MMOL/L (98-107); CREATININE FOR GFR 0.62 MG/DL (0.70-1.30); GLOMERULAR FILTRATION RATE > 90.0 (>42); POTASSIUM SERUM 4.5 MMOL/L (3.5-5.1); SODIUM LEVEL 147 MMOL/L (136-145)
[2025-02-07] MEDS: NS 0.45% 1,000 ML IV ONE (13:57)
[2025-02-07] MEDS: NS 0.45% 1,000 ML IV SCH (15:05)
[2025-02-07] MEDS: IPRATROPIUM 0.5 MG/ALBUTEROL 2.5 MG INH SOL UD 3 ML NEB SCH (16:00)
[2025-02-08 00:03] VITALS: BP 131/67; TEMP 97.4; O2SAT 96
[2025-02-08 03:28] VITALS: BP 116/69; TEMP 98.2; O2SAT 96
[2025-02-08 08:07] VITALS: BP 116/69; TEMP 98.3; O2SAT 99
[2025-02-08 11:21] VITALS: BP 113/61; TEMP 98.2; O2SAT 95
[2025-02-08 11:37] LABS: BASO # 0.0 10^3/uL (0.0-0.2); BASO % 0.3 % (0.0-1.0); EOS # 0.4 10^3/uL (0.0-0.5); EOS % 3.3 % (0.0-3.0); LYMPH # 1.5 10^3/uL (1.5-5.0); LYMPH % 14.2 % (24.0-44.0); MONO # 0.5 10^3/uL (0.0-0.8); MONO % 5.0 % (2.0-8.0); NEUTROPHILS # 8.1 10^3/uL (1.5-8.5); NEUTROPHILS % 75.6 % (36.0-66.0); PLATELET COUNT, AUTOMATED 511 10^3/uL (150-450)
[2025-02-08 12:11] LABS: CALCIUM LEVEL 7.8 MG/DL (8.3-10.6); CARBON DIOXIDE LEVEL 26 MMOL/L (20-31); CHLORIDE LEVEL 111 MMOL/L (98-107); CREATININE FOR GFR 0.66 MG/DL (0.70-1.30); GLOMERULAR FILTRATION RATE > 90.0 (>42); POTASSIUM SERUM 3.9 MMOL/L (3.5-5.1); SODIUM LEVEL 144 MMOL/L (136-145)
[2025-02-08] MEDS: NS (Normal Saline) 0.9% 1,000 ML IV ONE (12:13)
[2025-02-08 16:20] VITALS: BP 130/72; TEMP 98.6; O2SAT 90
[2025-02-08 20:42] VITALS: BP 134/71; TEMP 98.8; O2SAT 88
[2025-02-08] MEDS: DOCUSATE SODIUM 100 MG CAPSULE PO PRN (22:10)
[2025-02-09 04:40] VITALS: BP 128/71; TEMP 98.4; O2SAT 91
[2025-02-09] MEDS ORDERED: BACI1CAP PO (07:16)
[2025-02-09] MEDS ORDERED: AMOX875T2 PO (07:16)
[2025-02-09 09:54] VITALS: O2SAT 85
[2025-02-09 10:35] VITALS: O2SAT 86
[2025-02-09 10:40] VITALS: O2SAT 88
[2025-02-09 11:36] VITALS: BP 100/58; TEMP 97.5; O2SAT 89
[2025-02-10] MEDS ORDERED: COMBAER6 INH (11:46)
[2025-02-10] MEDS ORDERED: MUCI1TAB16 PO (11:47)
[2025-02-10] MEDS ORDERED: VENTAER INH (11:47)
== END 2025-02-09 14:05 | disposition home or self-care (01) | DRG 689 ==
LOC: M ED 12:26 → M ED INP 15:10 → M MS5PR 15:55 → M PCU 02-04 21:53 → M MSPAV 02-06 21:42
PROVIDERS: ADMIT General Practice; ATTEND General Practice
DX: N39.0 Urinary tract infection, site not specified (principal); J69.0 Pneumonitis due to inhalation of food and vomit; A41.9 Sepsis, unspecified organism; J96.01 Acute respiratory failure with hypoxia; E46 Unspecified protein-calorie malnutrition; I69.354 Hemiplegia and hemiparesis following cerebral infarction affecting left non-dominant side; J98.11 Atelectasis; E87.0 Hyperosmolality and hypernatremia; E87.21 Acute metabolic acidosis; B96.20 Unspecified Escherichia coli [E. coli] as the cause of diseases classified elsewhere; E88.09 Other disorders of plasma-protein metabolism, not elsewhere classified; I25.10 Atherosclerotic heart disease of native coronary artery without angina pectoris; E86.0 Dehydration; E11.9 Type 2 diabetes mellitus without complications; R74.01 Elevation of levels of liver transaminase levels; I69.320 Aphasia following cerebral infarction; E87.6 Hypokalemia; D50.9 Iron deficiency anemia, unspecified; F03.90 Unspecified dementia, unspecified severity, without behavioral disturbance, psychotic disturbance, mood disturbance, and anxiety; L89.159 Pressure ulcer of sacral region, unspecified stage; Z74.1 Need for assistance with personal care; I10 Essential (primary) hypertension; E78.5 Hyperlipidemia, unspecified; Z99.3 Dependence on wheelchair; Z79.82 Long term (current) use of aspirin; Z79.4 Long term (current) use of insulin; Z79.84 Long term (current) use of oral hypoglycemic drugs; Z79.899 Other long term (current) drug therapy; Z90.49 Acquired absence of other specified parts of digestive tract; Z89.611 Acquired absence of right leg above knee; Z89.612 Acquired absence of left leg above knee; B34.8 Other viral infections of unspecified site; I69.321 Dysphasia following cerebral infarction